=== PATIENT | male | born 1935 | race Caucasian/White ===

== ENCOUNTER → 2021-06-08 10:52 | Outpatient (CLI) | payer MEDICARE, SELFPAY | PROVIDERS: Referring Provider Nurse Practitioner Critical Care Medicine; Visit Provider Nurse Practitioner Critical Care Medicine | DX: R31.9 Hematuria, unspecified (principal) | CPT/HCPCS: 87086 ==

== ENCOUNTER 2021-06-08 11:53 | Emergency (ER) | payer OTHER, SELFPAY ==
[2021-06-08 11:58] VITALS: BP 132/102; PULSE 133; RESP 20; TEMP 36.7; O2SAT 99
--- NOTE | 2021-06-08 12:07 | DI.RAD.S_ITS ---
PROCEDURE: XR CHEST 1V INDICATIONS: chest pain TECHNIQUE: One view of the chest was acquired. COMPARISON: None. FINDINGS: Surgical changes and devices: None. Lungs and pleura: On this semiupright portable chest examination, no large pneumothorax or large pleural effusions are seen. No focal infiltrates are seen. Mediastinum: Mediastinal contours appear normal. Heart size is at the upper limits of normal for portable technique. Bones and chest wall: No suspicious bony lesions. Age-appropriate bony degenerative changes are seen. Overlying soft tissues appear unremarkable. IMPRESSION: Unremarkable portable chest for age. Dictated by: Javan Galvan M.D. on 06/08/2021 at 11:36 Approved by: Javan Galvan M.D. on 06/08/2021 at 11:37
[2021-06-08 12:32] VITALS: PULSE 125; RESP 20; O2SAT 97
[2021-06-08 12:34] LABS: Add Manual Diff / Slide Review NO; Basophils Absolute Auto 100 /uL (0-100); Basophils Percent Auto 0.8 % (0-2); Eosinophils Absolute Auto 300 /uL (0-450); Eosinophils Percent Auto 3.5 % (2-4); Hemoglobin 15.2 g/dL (13.5-17.5); Lymphocytes Absolute Auto 1500 /uL (1100-4500); Lymphocytes Percent Auto 18.1 % (25-40); Mean Corpuscular HGB Conc 33.8 % (30-36); Mean Corpuscular Hemoglobin 32.1 PG (26-34); Monocytes Absolute Auto 900 /uL (0-900); Monocytes Percent Auto 11.1 % (3-14); Neutrophils Absolute Auto 5400 /uL (1500-7000); Neutrophils Percent Auto 66.5 % (50-75); Platelet Count 125 X10^3/uL (150-400); Red Blood Cell Count 4.74 X10^6/uL (4.5-5.9); Red Cell Distribution Width 14.5 % (11.6-14.8)
--- NOTE | 2021-06-08 12:36 | PC.NURSE ---
Patient reports blood in urine since 06/03, denies abdominal pain, denies recent trauma. Switched blood thinners approximately 6 months ago. Reports severe back pain, chronic, not on pain medications. SOB worse with exertion, unclear when started. Recent 4 day travel in car.
[2021-06-08 12:41] LABS: INR 1.4 (0.9-1.3); Prothrombin Time 15.4 SECONDS (10.1-12.7)
[2021-06-08 12:44] LABS: PTT Partial Thromboplastin Tim 39 SECONDS (26.4-36.2)
--- NOTE | 2021-06-08 12:47 | ED.WEAKNESS ---
HPI - Weakness General Chief complaint: Urogenital-Male Stated complaint: [facility] referred; r/o kidney stone, blood in urine Time Seen by Provider: 06/08/21 12:09 Source: patient Mode of arrival: Ambulatory History of Present Illness HPI Narrative: Patient is an 86-year-old male with history of dementia, atrial fibrillation on Eliquis, congestive heart failure, presenting today with hematuria. He was actually diagnosed with a UTI on June 03 and started on ciprofloxacin. Currently with daughter in-law who is the primary historian. She states his urine is very dark and bloody. Patient is overall a very poor historian. There are reports of increasing shortness of breath with exertion as well. He denies any orthopnea he has no chest pain or palpitations although he is in atrial fibrillation on the monitor. He has no nausea or vomiting he denies any abdominal pain. He is currently afebrile. There also reports that patient is more confused than normal. Related Data Home Medications Medication Instructions Recorded Confirmed albuterol 90 mcg/actuation aerosol mcg INHALATION 06/08/21 06/08/21 inhaler apixaban 5 mg tablet (Eliquis) 5 mg PO BID 06/08/21 06/08/21 ciprofloxacin HCl 500 mg tablet 500 mg PO BID 06/08/21 06/08/21 (Cipro) coenzyme Q10 10 mg capsule (Co 10 mg PO ONCE 06/08/21 06/08/21 Q-10) digoxin 125 mcg (0.125 mg) tablet 125 mcg PO DAILY 06/08/21 06/08/21 furosemide 40 mg tablet 40 mg PO DAILY 06/08/21 06/08/21 metoprolol succinate 100 mg 100 mg PO DAILY 06/08/21 06/08/21 tablet,extended release 24 hr tamsulosin 0.4 mg capsule 0.4 mg PO DAILY 06/08/21 06/08/21 Previous Rx's Medication Instructions Recorded hydrocodone 5 mg-acetaminophen 325 1 tab PO Q6H PRN #10 tab 06/08/21 mg tablet Allergies Allergy/AdvReac Type Severity Reaction Status Date / Time No Known Drug Allergies Allergy Unverified 06/08/21 11:01 Review of Systems Review of Systems ROS Unobtainable: All systems reviewed & are unremarkable except as noted in HPI and below Constitutional Constitutional: Reports as per HPI, Denies chills, Denies fatigue, Denies fever(s) and Denies frequent falls ENT Ears, Nose, Mouth, and Throat: Denies dizziness and Denies sore throat Cardiovascular Cardiovascular: Denies chest pain, Denies edema, Reports irregular heart rhythm and Reports dyspnea on exertion Respiratory Respiratory: Denies cough, Reports dyspnea on exertion and Denies wheezing Gastrointestinal Gastrointestinal: Denies abdominal pain, Denies nausea and Denies vomiting Genitourinary Genitourinary: Reports as per HPI Musculoskeletal Musculoskeletal: Reports back pain (Chronic multiple fusions) Neurologic Neurologic: Reports confusion, Denies dizziness, Denies frequent falls and Reports memory loss Psychiatric Psychiatric: Reports confusion and Reports memory loss Endocrine Endocrine: Denies fatigue Allergic/Immunologic Allergic/Immunologic: Denies wheezing Patient History Medical History Atrial fibrillation CHF (congestive heart failure) Dementia Social History Smoking Status: Never smoker Smoking Status: Never smoker alcohol intake frequency: 0-2 drinks per day Substance Use Type: does not use Exam Initial Vital Signs Initial Vital Signs: Vital Signs Temperature 98.1 F 06/08/21 11:58 Pulse Rate 133 H 06/08/21 11:58 Respiratory Rate 20 06/08/21 11:58 Blood Pressure 132/102 H 06/08/21 11:58 Pulse Oximetry 99 06/08/21 11:58 GENERAL: Alert confused and in no acute distress. HEENT: Head atraumatic,EOMI, pupils reactive, face symmetric, moist mucous membranes CARDIOVASCULAR: Regular rate and rhythm without murmurs, rubs or gallops. RESPIRATORY: Breath sounds equal bilaterally, no wheezes rales or rhonchi. ABDOMEN: Soft, nontender. Normoactive bowel sounds all 4 quadrants. No guarding or rebound. : No CVA tenderness EXTREMITIES: Normal range of motion, no clubbing or edema. Neurovascularly intact NEUROLOGICAL: Alert moving all extremities no focal deficits SKIN: Warm, dry, no laceration, no petechiae, no rashes or lesions. Course Orders Ordered: ED Orders 06/08/21 12:07 XR chest 1V Stat EKG-12 Lead Stat 06/08/21 12:22 BNP [NT-proBNP (BNP-Adult 18+)] Stat Complete Blood Count AUTO DIFF Stat Comprehensive Metabolic Panel Stat Lactate (Lactic Acid) Stat Lipase Stat Magnesium Stat Partial Thromboplastin Time Stat Procalcitonin Stat Prothrombin Time INR Stat Troponin & CK Cardiac Panel Stat 06/08/21 13:10 Blood Culture Stat Vital Signs Vital signs: Vital Signs - 8 hr 06/08/21 11:58 06/08/21 12:32 06/08/21 13:00 Temperature 98.1 F Pulse Rate 133 H 125 H 121 H Respiratory Rate 20 20 23 Blood Pressure 132/102 H Pulse Oximetry 99 97 98 06/08/21 13:30 06/08/21 14:00 Temperature Pulse Rate 81 86 Respiratory Rate 21 20 Blood Pressure Pulse Oximetry 98 96 MDM - Weakness Lab Data Result diagrams: 06/08/21 12:22 06/08/21 12:22 Labs: Lab Results 06/08/21 06/08/21 06/08/21 Range/Units 12:22 12:22 12:22 WBC 8.0 (4.5-11.0) X10^3/uL RBC 4.74 (4.5-5.9) X10^6/uL Hgb 15.2 (13.5-17.5) g/dL Hct 45.0 (41-53) % MCV 95.0 (80-100) fL MCH 32.1 (26-34) PG MCHC 33.8 (30-36) % RDW 14.5 (11.6-14.8) % Plt Count 125 L (150-400) X10^3/uL Neut % (Auto) 66.5 (50-75) % Lymph % (Auto) 18.1 L (25-40) % [place]alfa % (Auto) 11.1 (3-14) % Eos % (Auto) 3.5 (2-4) % Baso % (Auto) 0.8 (0-2) % Neut # (Auto) 5400 (1337-6138) /uL Lymph # (Auto) 1500 (5866-0874) /uL [place] # (Auto) 900 (0-900) /uL Eos # (Auto) 300 (0-450) /uL Baso # (Auto) 100 (0-100) /uL PT 15.4 H (10.1-12.7) SECONDS INR 1.4 H (0.9-1.3) APTT 39 H (26.4-36.2) SECONDS Sodium 144 (137-145) mmol/L Potassium 4.0 (3.4-5.1) mmol/L Chloride 108 H (98-107) mmol/L Carbon Dioxide 26 (22-32) mmol/L BUN 10 (9-20) mg/dL Creatinine 0.94 (0.66-1.25) mg/dL Estimated GFR > 60.0 (>60) mL/min BUN/Creatinine Ratio 10.6 (6-22) Glucose 109 (80-110) mg/dL Lactate (0.7-2.1) mmol/L Calcium 9.2 (8.4-10.2) mg/dL Magnesium 2.3 (1.6-2.3) mg/dL Total Bilirubin 1.0 (0.2-1.3) mg/dL AST 32 (17-59) IU/L ALT 17 (<50) IU/L Alkaline Phosphatase 46 (38-126) U/L Total Creatine Kinase 62 (55-170) U/L CK-MB (CK-2) TNP CK-MB (CK-2) Rel Index TNP Troponin I < 0.012 (0.01-0.034) ng/mL NT-Pro-B Natriuret Pep (<450) pg/mL Total Protein 7.5 (6.3-8.2) g/dL Albumin 4.2 (3.5-5.0) g/dL Globulin 3.3 (1.7-4.1) g/dL Albumin/Globulin Ratio 1.3 (1.0-2.8) Lipase 118 (23-300) U/L Procalcitonin (<0.5) ng/mL 06/08/21 06/08/21 Range/Units 12:22 12:22 WBC (4.5-11.0) X10^3/uL RBC (4.5-5.9) X10^6/uL Hgb (13.5-17.5) g/dL Hct (41-53) % MCV (80-100) fL MCH (26-34) PG MCHC (30-36) % RDW (11.6-14.8) % Plt Count (150-400) X10^3/uL Neut % (Auto) (50-75) % Lymph % (Auto) (25-40) % [place] % (Auto) (3-14) % Eos % (Auto) (2-4) % Baso % (Auto) (0-2) % Neut # (Auto) (3828-3977) /uL Lymph # (Auto) (5090-7058) /uL [place] # (Auto) (0-900) /uL Eos # (Auto) (0-450) /uL Baso # (Auto) (0-100) /uL PT (10.1-12.7) SECONDS INR (0.9-1.3) APTT (26.4-36.2) SECONDS Sodium (137-145) mmol/L Potassium (3.4-5.1) mmol/L Chloride (98-107) mmol/L Carbon Dioxide (22-32) mmol/L BUN (9-20) mg/dL Creatinine (0.66-1.25) mg/dL Estimated GFR (>60) mL/min BUN/Creatinine Ratio (6-22) Glucose (80-110) mg/dL Lactate 1.7 (0.7-2.1) mmol/L Calcium (8.4-10.2) mg/dL Magnesium (1.6-2.3) mg/dL Total Bilirubin (0.2-1.3) mg/dL AST (17-59) IU/L ALT (<50) IU/L Alkaline Phosphatase (38-126) U/L Total Creatine Kinase (55-170) U/L CK-MB (CK-2) CK-MB (CK-2) Rel Index Troponin I (0.01-0.034) ng/mL NT-Pro-B Natriuret Pep 1380 H (<450) pg/mL Total Protein (6.3-8.2) g/dL Albumin (3.5-5.0) g/dL Globulin (1.7-4.1) g/dL Albumin/Globulin Ratio (1.0-2.8) Lipase (23-300) U/L Procalcitonin < 0.03 (<0.5) ng/mL Imaging Data Chest x-ray: Radiologist Impression: PROCEDURE:? XR CHEST 1V ? INDICATIONS:? chest pain ? TECHNIQUE:? One view of the chest was acquired.? ? COMPARISON:? None. ? FINDINGS:? ? Surgical changes and devices:? None.? ? Lungs and pleura:? On this semiupright portable chest examination, no large pneumothorax or large pleural effusions are seen.? No focal infiltrates are seen.? ? Mediastinum:? Mediastinal contours appear normal.? Heart size is at the upper limits of normal for portable technique.? ? Bones and chest wall:? No suspicious bony lesions.? Age-appropriate bony degenerative changes are seen.? Overlying soft tissues appear unremarkable.? ? ? IMPRESSION:? Unremarkable portable chest for age. ? ? Dictated by: Javan Galvan M.D. on 06/08/2021 at 11:36? ECG Data Interpretation: Atrial fibrillation rate [address] changes no priors to compare MDM Narrative Medical decision making narrative: It is evident the patient has some dementia. He has urinated multiple times in the ED initially brown slightly pinkish it is not grossly blood. There is no evidence of infection at this time. I recommend that he finish his antibiotic. He has no abdominal pain he has chronic ongoing back pain. He apparently was taking opiates for a number of decades and has been off of them for about 20 years. However his back pain and other pains have gotten so severe that he would like to take medicine again. At this time there is no reason for admission. He has an appointment with new primary care in July. Discussed with daughter in-law if things worsen then she is welcome to return back to the emergency department Discharge Plan Departure Patient Disposition: Home Clinical Impression: Chronic back pain, Hematuria Instructions: DI for Low Back Pain, DI for Hematuria Activity Restrictions/Additional Instructions: *You have been diagnosed with blood in urine and chronic back pain *What to do: At this time it appears that the antibiotics are working. *Continue to take medications as directed Finish antibiotics as prescribed Hydrocodone 1 tablet every 6 hours if needed for severe pain *Follow up with your primary care provider in 2-3 days or call [phone] *Return to ER if you should have increasing pain, gross blood, worsening confusion, or any new, worsening or concerning symptoms CONTROLLED SUBSTANCE DISCHARGE (Narcotoic/benzodiazepine/Flexeril/Phenergan) 1. You have been prescribed narcotic medications, it does have acetaminophen/Tylenol/paracetamol in it, DO NOT TAKE MORE THAN 4,00mg in 24 hours of Tylenol. TRAMADOL DOES NOT CONTAIN TYLENOL 2. Please understand that we cannot provide further refills of narcotics, benzodiazepines or controlled substances through the ED and her pain management will need to be through your provider. 3. While on these medications you cannot drive or operate heavy machinery. 4. You cannot sign legal documents or perform any duties such as this. 5. As long as you're taking opiate pain medications he should also be taking a stool softener such as Colace, Dulcolax, MiraLAX or prune juice, to help avoid constipation. Prescriptions: New hydrocodone-acetaminophen 5-325 mg tablet 1 tab PO Q6H PRN (Reason: pain) Qty: 10 0RF No Action ciprofloxacin HCl [Cipro] 500 mg tablet 500 mg PO BID 0RF digoxin 125 mcg (0.125 mg) tablet 125 mcg PO DAILY 0RF metoprolol succinate 100 mg tablet extended release 24 hr 100 mg PO DAILY 0RF furosemide 40 mg tablet 40 mg PO DAILY 0RF albuterol 90 mcg/actuation aerosol inhalation 0RF tamsulosin 0.4 mg capsule 0.4 mg PO DAILY 0RF Eliquis 5 mg tablet 5 mg PO BID 0RF coenzyme Q10 [Co Q-10] 10 mg capsule 10 mg PO ONCE 0RF Referrals: Bassam Bowden MD [Primary Care Provider] -
[2021-06-08 12:48] LABS: Alanine Aminotransferase 17 IU/L (<50); Albumin 4.2 g/dL (3.5-5.0); Albumin Globulin Ratio 1.3 (1.0-2.8); Alkaline Phosphatase 46 U/L (38-126); Aspartate Aminotransferase 32 IU/L (17-59); BUN Creatinine Ratio 10.6 (6-22); Blood Urea Nitrogen 10 mg/dL (9-20); Calcium 9.2 mg/dL (8.4-10.2); Carbon Dioxide 26 mmol/L (22-32); Chloride 108 mmol/L (98-107); Creatine Kinase 62 U/L (55-170); Estimated Glomerular Filt Rate > 60.0 mL/min (>60); Globulin 3.3 g/dL (1.7-4.1); Glucose 109 mg/dL (80-110); HEMOLYSIS 35 (0-50); Lipase 118 U/L (23-300); Magnesium 2.3 mg/dL (1.6-2.3); Sodium 144 mmol/L (137-145); Total Protein 7.5 g/dL (6.3-8.2)
[2021-06-08 12:59] LABS: Lactate (Lactic Acid) 1.7 mmol/L (0.7-2.1)
[2021-06-08 13:00] VITALS: PULSE 121; RESP 23; O2SAT 98
[2021-06-08 13:00] LABS: Troponin I < 0.012 ng/mL (0.01-0.034)
[2021-06-08 13:09] LABS: NT-proBNP (BNP-Adult 18+) 1380 pg/mL (<450)
[2021-06-08 13:17] LABS: Procalcitonin < 0.03 ng/mL (<0.5)
[2021-06-08 13:30] VITALS: PULSE 81; RESP 21; O2SAT 98
[2021-06-08 14:00] VITALS: PULSE 86; RESP 20; O2SAT 96
== END 2021-06-08 14:19 | disposition home or self-care (01) ==
PROVIDERS: Emergency Provider Emergency Medicine; PCP Internal Medicine
DX: R31.9 Hematuria, unspecified (principal); M54.50 Low back pain, unspecified; R07.9 Chest pain, unspecified; F03.90 Unspecified dementia, unspecified severity, without behavioral disturbance, psychotic disturbance, mood disturbance, and anxiety; G89.29 Other chronic pain; Z79.01 Long term (current) use of anticoagulants
CPT/HCPCS: 36415; 71045; 80053; 82550; 83605; 83690; 83735; 83880; 84145; 84484; 85025; 85610; 85730; 87040; 87086; 93005; 93010; 99284

== ENCOUNTER 2021-06-14 18:08 | Emergency (ER) | payer MEDICARE, SELFPAY ==
[2021-06-14 18:47] VITALS: BP 139/82; PULSE 110; RESP 16; TEMP 36.6; O2SAT 97; BMI 26.6
--- NOTE | 2021-06-14 19:08 | ED_ITS ---
HPI - Male Genitourinary General Chief complaint: Urogenital-Male Stated complaint: Blood in Urine Time Seen by Provider: 06/14/21 19:08 Source: patient Mode of arrival: Ambulatory History of Present Illness HPI Narrative: 86-year-old male nonsmoker with history of AFib on Eliquis presents with his in the chief complaint of painless blood in his urine. He denies any burning, frequency or urgency. He denies any dizziness, weakness or lightheadedness. He denies chest pain or shortness of breath. he was seen and evaluated under relatively similar circumstances about 1 week ago and had a reassuring exam. He had been on antibiotics for supposed urinary tract infection. Related Data Home Medications Medication Instructions Recorded Confirmed albuterol 90 mcg/actuation aerosol mcg INHALATION 06/08/21 06/08/21 inhaler apixaban 5 mg tablet (Eliquis) 5 mg PO BID 06/08/21 06/08/21 ciprofloxacin HCl 500 mg tablet 500 mg PO BID 06/08/21 06/08/21 (Cipro) coenzyme Q10 10 mg capsule (Co 10 mg PO ONCE 06/08/21 06/08/21 Q-10) digoxin 125 mcg (0.125 mg) tablet 125 mcg PO DAILY 06/08/21 06/08/21 furosemide 40 mg tablet 40 mg PO DAILY 06/08/21 06/08/21 metoprolol succinate 100 mg 100 mg PO DAILY 06/08/21 06/08/21 tablet,extended release 24 hr tamsulosin 0.4 mg capsule 0.4 mg PO DAILY 06/08/21 06/08/21 Previous Rx's Medication Instructions Recorded hydrocodone 5 mg-acetaminophen 325 1 tab PO Q6H PRN #10 tab 06/08/21 mg tablet Allergies Allergy/AdvReac Type Severity Reaction Status Date / Time No Known Drug Allergies Allergy Unverified 06/08/21 11:01 Review of Systems Review of Systems Narrative: GENERAL: Denies chills, fatigue, malaise, fever, sweats. HEENT: Denies sinus pain, ear pain, sore throat, difficulty swallowing, dizziness. RESPIRATORY: Denies dyspnea, cough, wheezing, hemoptysis, sputum. CARDIOVASCULAR: Denies chest pain, palpitations, orthopnea, edema, GASTROINTESTINAL: Denies nausea, vomiting, abdominal pain, diarrhea, constipation, melena. : See HPI MUSCULOSKELETAL: denies weakness, joint pain, or bony pain SKIN: Denies rash, skin lesions, or other NEUROLOGIC: Denies weakness, headache, numbness, change in speech, confusion, seizures, incoordination. PSYCHIATRIC: No concerning psychosocial issues. 12 point review of systems is negative except for those stated above Patient History Medical History Atrial fibrillation CHF (congestive heart failure) Dementia Social History Smoking Status: Never smoker Smoking Status: Never smoker alcohol intake frequency: 0-2 drinks per day Substance Use Type: does not use Exam Narrative Exam Narrative: GENERAL: [86] year old patient appears stated age. Well-developed patient, in mild distress. HEAD: Atraumatic. Normocephalic. EYES: Pupils equal round and reactive. Extraocular motions intact. No scleral icterus. No injection or drainage. ENT: Nose without bleeding, purulent drainage. Throat without erythema, tonsillar hypertrophy or exudate. Airway patent. NECK: Trachea midline. Non tender CARDIOVASCULAR: Regular rate and rhythm without murmurs, gallops, or rubs. RESPIRATORY: Clear to auscultation. Breath sounds equal bilaterally. No wheezes, rales, or rhonchi. GASTROINTESTINAL: Abdomen soft, non-tender, nondistended. EXTREMITIES: No edema or joint tenderness. BACK: Nontender without deformity or crepitance. No flank tenderness. NEURO: AOx3. SKIN: No rash or erythema of visible areas Initial Vital Signs Initial Vital Signs: Vital Signs Temperature 97.9 F 06/14/21 18:47 Pulse Rate 110 H 06/14/21 18:47 Respiratory Rate 16 06/14/21 18:47 Blood Pressure 139/82 06/14/21 18:47 Pulse Oximetry 97 06/14/21 18:47 Course Course Course Narrative: At no point has patient's urine been laura blood. It was initially a bit darker but over the course of the visit has cleared significantly and still is blood tinged but translucent. Vital signs and H&H remained stable. X-ray KUB would suggest against the likelihood of kidney stone. Patient given extensive return precautions and questions have been answered to his apparent satisfaction. Orders Ordered: ED Orders 06/14/21 20:10 BMP [Basic Metabolic Panel] Stat CBC Auto Diff [Complete Blood Count AUTO DIFF] Stat 06/14/21 22:02 XR KUB Stat Vital Signs Vital signs: Vital Signs - 8 hr 06/14/21 23:15 Pulse Rate 82 Respiratory Rate 16 Blood Pressure 136/81 Pulse Oximetry 99 MDM - Male Genitourinary Lab Data Result diagrams: 06/14/21 20:10 06/14/21 20:10 Labs: Lab Results 06/14/21 06/14/21 06/14/21 Range/Units 18:24 20:10 20:10 WBC 9.5 (4.5-11.0) X10^3/uL RBC 4.56 (4.5-5.9) X10^6/uL Hgb 14.4 (13.5-17.5) g/dL Hct 43.4 (41-53) % MCV 95.2 (80-100) fL MCH 31.7 (26-34) PG MCHC 33.3 (30-36) % RDW 14.3 (11.6-14.8) % Plt Count 133 L (150-400) X10^3/uL Neut % (Auto) 61.4 (50-75) % Lymph % (Auto) 23.2 L (25-40) % [place] % (Auto) 10.8 (3-14) % Eos % (Auto) 3.6 (2-4) % Baso % (Auto) 1.0 (0-2) % Neut # (Auto) 5800 (9380-3601) /uL Lymph # (Auto) 2200 (0945-4276) /uL [place] # (Auto) 1000 H (0-900) /uL Eos # (Auto) 300 (0-450) /uL Baso # (Auto) 100 (0-100) /uL Sodium 140 (137-145) mmol/L Potassium 4.1 (3.4-5.1) mmol/L Chloride 104 (98-107) mmol/L Carbon Dioxide 29 (22-32) mmol/L BUN 15 (9-20) mg/dL Creatinine 1.03 (0.66-1.25) mg/dL Estimated GFR > 60 (>60) mL/min BUN/Creatinine Ratio 14.6 (6-22) Glucose 99 (80-110) mg/dL Calcium 8.8 (8.4-10.2) mg/dL Urine RBC >100/hpf H (0-5/HPF) Urine WBC 5-10/hpf H (0-5/HPF) Ur Squamous Epith Cells 0-1 /hpf (0-5/HPF) Urine Bacteria Occasional (0-1) (None) Ur Culture Indicated? Specimen cultured Urine Dip Bedside Urine Glucose Negative Bedside Urine Bilirubin - Negative Bedside Urine Ketone - Negative Urine Specific [place] 1.010 Bedside Urine Occult Blood +++ Bedside Urine pH 6.0 Bedside Urine Protein ++ 100 Bedside Urine Urobilinogen - Negative Bedside Urine Nitrite - Negative Bedside Urine Leukocytes + 70 Esterase Discharge Plan Departure Patient Disposition: Home Clinical Impression: Hematuria Instructions: DI for Hematuria Activity Restrictions/Additional Instructions: *You have been diagnosed with [painless hematuria. As we discussed your history and physical exam, vital signs and labs are very reassuring. There is no evidence of life-threatening bleeding, your blood counts are unchanged and vital signs are stable. Also, as we discussed (and I have called your new doctor's partner) we will not change or take you off of your blood thinner right now as it is a larger risk that he would develop a consequence of your atrial fibrillation, this is a conversation you can have with your primary care provider at your upcoming appointment *What to do: *Please continue to take your regular medications as directed. [ ] New medication prescriptions sent to your pharmacy: [ ] [ ] New medication written as a paper prescription [ x] No new medications given *Please follow up with your primary care provider in 2-3 days, call for an appointment. Let them know you were seen in the Emergency Department and that we ask that you be seen in follow up. We will electronically transmit a record of today's note if your PCP is in our system *If you do not have a primary care provider please contact the [facility] Resource line at [phone]. They will ask some questions about your medical history and help get you set up with a doctor in the community. *Return to Emergency Department if you should have any new, worsening or concerning symptoms, such as [fever greater than 101 F, shaking chills, w orsening pain, persistent vomiting or other bothersome symptoms] Prescriptions: No Action ciprofloxacin HCl [Cipro] 500 mg tablet 500 mg PO BID 0RF digoxin 125 mcg (0.125 mg) tablet 125 mcg PO DAILY 0RF metoprolol succinate 100 mg tablet extended release 24 hr 100 mg PO DAILY 0RF furosemide 40 mg tablet 40 mg PO DAILY 0RF albuterol 90 mcg/actuation aerosol inhalation 0RF tamsulosin 0.4 mg capsule 0.4 mg PO DAILY 0RF Eliquis 5 mg tablet 5 mg PO BID 0RF coenzyme Q10 [Co Q-10] 10 mg capsule 10 mg PO ONCE 0RF hydrocodone-acetaminophen 5-325 mg tablet 1 tab PO Q6H PRN (Reason: pain) Qty: 10 0RF Referrals: Bassam Bowden MD [Primary Care Provider] -
[2021-06-14 19:37] LABS: RBC Urine >100/HPF (0-5/HPF); Squamous Epithelial Cell Urine 0-1 /HPF (0-5/HPF)
[2021-06-14 19:38] LABS: Bacteria Urine Occasional (0-1); Culture Indicated Urine Specimen Cultured; WBC Urine 5-10/HPF (0-5/HPF)
[2021-06-14 20:28] LABS: Add Manual Diff / Slide Review NO; Basophils Absolute Auto 100 /uL (0-100); Eosinophils Absolute Auto 300 /uL (0-450); Eosinophils Percent Auto 3.6 % (2-4); Hematocrit 43.4 % (41-53); Hemoglobin 14.4 g/dL (13.5-17.5); Lymphocytes Absolute Auto 2200 /uL (1100-4500); Lymphocytes Percent Auto 23.2 % (25-40); Mean Corpuscular HGB Conc 33.3 % (30-36); Mean Corpuscular Hemoglobin 31.7 PG (26-34); Mean Corpuscular Volume 95.2 fL (80-100); Monocytes Absolute Auto 1000 /uL (0-900); Monocytes Percent Auto 10.8 % (3-14); Neutrophils Absolute Auto 5800 /uL (1500-7000); Neutrophils Percent Auto 61.4 % (50-75); Platelet Count 133 X10^3/uL (150-400); Red Blood Cell Count 4.56 X10^6/uL (4.5-5.9); Red Cell Distribution Width 14.3 % (11.6-14.8); White Blood Cell Count 9.5 X10^3/uL (4.5-11.0)
[2021-06-14 20:32] LABS: BUN Creatinine Ratio 14.6 (6-22); Blood Urea Nitrogen 15 mg/dL (9-20); Calcium 8.8 mg/dL (8.4-10.2); Carbon Dioxide 29 mmol/L (22-32); Chloride 104 mmol/L (98-107); Estimated Glomerular Filt Rate > 60 mL/min (>60); Glucose 99 mg/dL (80-110); HEMOLYSIS 28 (0-50); Potassium 4.1 mmol/L (3.4-5.1); Sodium 140 mmol/L (137-145)
[2021-06-14 21:00] VITALS: BP 148/85; PULSE 75; RESP 16; O2SAT 99
--- NOTE | 2021-06-14 22:02 | DI.RAD.S_ITS ---
PROCEDURE: XR KUB INDICATIONS: hematuria TECHNIQUE: One view of the abdomen acquired. COMPARISON: None. FINDINGS: Surgical changes and devices: None. Bowel: Bowel gas pattern is nonobstructive. Soft tissues: No suspicious abdominal calcifications. Visualized solid organ contours appear normal in size. Bones: No suspicious bony lesions. IMPRESSION: Abdomen without acute radiographic abnormalities. No calcifications noted over the bilateral renal shadows or expected location of the bilateral ureters/bladder to suggest presence of uroliths. Dictated by: Joseph Miller M.D. on 06/14/2021 at 23:30 Approved by: Joseph Miller M.D. on 06/14/2021 at 23:31
[2021-06-14 23:15] VITALS: BP 136/81; PULSE 82; RESP 16; O2SAT 99
== END 2021-06-14 23:45 | disposition home or self-care (01) ==
PROVIDERS: Emergency Provider Emergency Medicine; PCP Internal Medicine
DX: R31.9 Hematuria, unspecified (principal); Z79.01 Long term (current) use of anticoagulants
CPT/HCPCS: 36415; 74018; 80048; 81003; 81015; 85025; 87077; 87086; 87186; 93005; 99284

== ENCOUNTER → 2021-09-13 09:08 | Outpatient (CLI) | payer MEDICARE, SELFPAY ==
[2021-09-13 09:31] LABS: Add Manual Diff / Slide Review NO; Basophils Absolute Auto 100 /uL (0-100); Basophils Percent Auto 0.8 % (0-2); Eosinophils Absolute Auto 200 /uL (0-450); Eosinophils Percent Auto 2.3 % (2-4); Hematocrit 43.1 % (41-53); Hemoglobin 14.6 g/dL (13.5-17.5); Lymphocytes Absolute Auto 1600 /uL (1100-4500); Mean Corpuscular HGB Conc 33.8 % (30-36); Mean Corpuscular Hemoglobin 31.6 PG (26-34); Mean Corpuscular Volume 93.4 fL (80-100); Monocytes Absolute Auto 1000 /uL (0-900); Monocytes Percent Auto 10.9 % (3-14); Neutrophils Absolute Auto 6000 /uL (1500-7000); Platelet Count 132 X10^3/uL (150-400); Red Blood Cell Count 4.61 X10^6/uL (4.5-5.9); Red Cell Distribution Width 15.1 % (11.6-14.8); White Blood Cell Count 8.8 X10^3/uL (4.5-11.0)
[2021-09-13 09:43] LABS: Alanine Aminotransferase 16 IU/L (<50); Albumin 4.2 g/dL (3.5-5.0); Albumin Globulin Ratio 1.4 (1.0-2.8); Alkaline Phosphatase 57 U/L (38-126); Aspartate Aminotransferase 30 IU/L (17-59); BUN Creatinine Ratio 11.9 (6-22); Bilirubin Total 0.8 mg/dL (0.2-1.3); Blood Urea Nitrogen 12 mg/dL (9-20); Carbon Dioxide 31 mmol/L (22-32); Chloride 106 mmol/L (98-107); Cholesterol 163 mg/dL (140-199); Estimated Glomerular Filt Rate > 60 mL/min (>60); Glucose 114 mg/dL (80-110); HDL Cholesterol 37 mg/dL (40-60); HEMOLYSIS < 15 (0-50); LDL Cholesterol Calculated 101 mg/dL (<100); Potassium 3.8 mmol/L (3.4-5.1); Sodium 143 mmol/L (137-145); Total Protein 7.2 g/dL (6.3-8.2); Triglycerides 125 mg/dL (35-150)
[2021-09-13 12:54] LABS: Digoxin 0.7 ng/mL (0.8-2.0)
== END ==
PROVIDERS: PCP Family Medicine; Referring Provider Family Medicine; Visit Provider Family Medicine
DX: I48.91 Unspecified atrial fibrillation (principal); I50.9 Heart failure, unspecified; E78.5 Hyperlipidemia, unspecified; E78.2 Mixed hyperlipidemia
CPT/HCPCS: 36415; 80053; 80061; 80162; 85025

== ENCOUNTER 2021-10-04 09:32 | Emergency (ER) | payer MEDICARE, SELFPAY ==
[2021-10-04] VITALS (9 sets, daily range): BP systolic 141–166; BP diastolic 78–112; PULSE 67–93; RESP 14–21; TEMP 36.5; O2SAT 96–99; BMI 24.3
--- NOTE | 2021-10-04 09:50 | DI.RAD.S_ITS ---
PROCEDURE: XR CHEST 2V INDICATIONS: shortness of breath TECHNIQUE: 2 views of the chest were acquired. COMPARISON: [facility], , XR CHEST 1V, 06/08/2021, 12:13. FINDINGS: Surgical changes and devices: None. Lungs and pleura: Lungs are clear. No pleural effusions or pneumothorax. Mediastinum: Mediastinal contours are normal. Heart size is normal. Bones and chest wall: No suspicious bony abnormalities. Soft tissues appear unremarkable. IMPRESSION: No acute cardiopulmonary disease process. Dictated by: Janae Agarwal MD, PhD on 10/04/2021 at 10:15 Approved by: Janae Agarwal MD, PhD on 10/04/2021 at 10:15
[2021-10-04 10:09] LABS: COVID19 -Nasal RAPID Negative (Negative)
[2021-10-04 10:11] LABS: Add Manual Diff / Slide Review NO; Basophils Absolute Auto 0 /uL (0-100); Basophils Percent Auto 0.5 % (0-2); Eosinophils Absolute Auto 200 /uL (0-450); Hematocrit 45.2 % (41-53); Hemoglobin 15.1 g/dL (13.5-17.5); Lymphocytes Absolute Auto 1200 /uL (1100-4500); Lymphocytes Percent Auto 15.6 % (25-40); Mean Corpuscular HGB Conc 33.4 % (30-36); Mean Corpuscular Hemoglobin 31.3 PG (26-34); Mean Corpuscular Volume 93.7 fL (80-100); Monocytes Absolute Auto 700 /uL (0-900); Monocytes Percent Auto 9.5 % (3-14); Neutrophils Absolute Auto 5600 /uL (1500-7000); Neutrophils Percent Auto 71.4 % (50-75); Platelet Count 130 X10^3/uL (150-400); Red Blood Cell Count 4.83 X10^6/uL (4.5-5.9); Red Cell Distribution Width 14.4 % (11.6-14.8); White Blood Cell Count 7.8 X10^3/uL (4.5-11.0)
[2021-10-04 10:19] LABS: INR 1.5 (0.9-1.3); Prothrombin Time 17.1 SECONDS (10.1-12.7)
[2021-10-04 10:22] LABS: Lactate (Lactic Acid) 1.1 mmol/L (0.7-2.1)
[2021-10-04 10:24] LABS: Alanine Aminotransferase 21 IU/L (<50); Albumin 4.4 g/dL (3.5-5.0); Albumin Globulin Ratio 1.3 (1.0-2.8); Alkaline Phosphatase 62 U/L (38-126); Aspartate Aminotransferase 36 IU/L (17-59); BUN Creatinine Ratio 12.9 (6-22); Bilirubin Total 1.2 mg/dL (0.2-1.3); Blood Urea Nitrogen 13 mg/dL (9-20); Calcium 9.3 mg/dL (8.4-10.2); Carbon Dioxide 32 mmol/L (22-32); Chloride 103 mmol/L (98-107); Creatine Kinase 115 U/L (55-170); Estimated Glomerular Filt Rate > 60 mL/min (>60); Globulin 3.3 g/dL (1.7-4.1); Glucose 111 mg/dL (80-110); HEMOLYSIS < 15 (0-50); Potassium 4.2 mmol/L (3.4-5.1); Sodium 140 mmol/L (137-145); Total Protein 7.7 g/dL (6.3-8.2)
[2021-10-04 10:35] LABS: NT-proBNP (BNP-Adult 18+) 1240 pg/mL (<450); Troponin I < 0.012 ng/mL (0.01-0.034)
[2021-10-04 10:39] LABS: CKMB % Relative Index 3.5 % (1.5-5.0); Creatine Kinase MB 4.07 ng/mL (<2.37)
--- NOTE | 2021-10-04 11:12 | ED_ITS ---
HPI - SOB/Dyspnea General Chief Complaint: Shortness of Breath/Dyspnea Stated Complaint: Trouble breathing Time Seen by Provider: 10/04/21 10:23 Source: patient Mode of arrival: Wheelchair Limitations: no limitations History of Present Illness HPI Narrative: The patient is an 86-year-old male history of dementia, atrial fibrillation on Eliquis when he remembers, congestive heart failure, asthma and chronic back p ain presenting today with variety of complaints. He says he has had worsening back pain since he tried to lift his girlfriend up off the floor about 1 month ago. [id number]-[id number] states that he took at least 4 hydrocodone last night which is more than he usually does. He may be having some shortness of breath as well. He denies any orthopnea or shortness of breath with exertion. He says his right leg swells more than his left leg but they appear about equal now. No fever chills or cough. Biggest complaint seems to be his lower back. Related Data Home Medications Medication Instructions Recorded Confirmed albuterol 90 mcg/actuation aerosol mcg inhalation 06/08/21 09/19/21 inhaler coenzyme Q10 10 mg capsule (Co 10 mg PO ONCE 06/08/21 09/19/21 Q-10) Previous Rx's Medication Instructions Recorded apixaban 5 mg tablet (Eliquis) 5 mg PO BID #180 tabs 07/18/21 digoxin 125 mcg (0.125 mg) tablet 125 mcg PO DAILY #90 tabs 07/18/21 furosemide 40 mg tablet 40 mg PO DAILY #90 tabs 08/27/21 metoprolol succinate 100 mg 100 mg PO DAILY #90 tabs 08/27/21 tablet,extended release 24 hr potassium chloride 8 mEq 8 meq PO DAILY #90 caps 08/27/21 capsule,extended release tamsulosin 0.4 mg capsule 0.4 mg PO DAILY #90 caps 08/27/21 hydrocodone 5 mg-acetaminophen 325 1 tab PO Q6H PRN pain #60 tabs 09/25/21 mg tablet Allergies Allergy/AdvReac Type Severity Reaction Status Date / Time No Known Drug Allergies Allergy Verified 10/04/21 09:46 Review of Systems Review of Systems Narrative: GENERAL: Denies chills, fatigue, malaise, fever, sweats, travel HEENT: Denies sinus pain, ear pain, sore throat, difficulty swallowing, neck pain RESPIRATORY: Denies dyspnea, cough, wheezing, hemoptysis, sputum. CARDIOVASCULAR: Denies chest pain, palpitations, orthopnea, edema GASTROINTESTINAL: Denies nausea, vomiting, abdominal pain, diarrhea, constipation, melena. : Denies dysuria, frequency, incontinence, hematuria, urinary retention, flank pain. MUSCULOSKELETAL: See HPI SKIN: No rash, no erythema, no pruritus NEUROLOGIC: Denies weakness, dizziness, headache, numbness, change in speech, confusion PSYCHIATRIC: No concerning psychosocial issues. 12 point review of systems is negative except for those stated above and HPI Patient History Medical History (Updated 10/04/21 @ 12:24 by Trinh Sidhu DO) Asthma Atrial fibrillation BPH (benign prostatic hyperplasia) Cervical spine disease CHF (congestive heart failure) Dementia Disease of spine Facial basal cell cancer Hearing loss Hepatitis Hyperlipidemia Jaundice Osteoarthritis Shoulder pain Skin lesion Vision disorder Surgical History Anesthesia History of cataract removal with insertion of prosthetic lens History of discectomy (~2001) History of fusion of cervical spine (~2001) History of lumbar laminectomy (~2001) Family History Mother Cancer Brother History of kidney cancer Sister History of heart disease Social History Smoking Status: Never smoker Smoking Status: Never smoker alcohol intake frequency: 0-2 drinks per day Substance Use Type: does not use Exam Initial Vital Signs Initial Vital Signs: Vital Signs Temperature 97.7 F 10/04/21 09:40 Pulse Rate 76 10/04/21 09:40 Respiratory Rate 16 10/04/21 09:40 Blood Pressure 141/93 H 10/04/21 09:40 Pulse Oximetry 99 10/04/21 09:40 Oxygen Delivery Method 10/04/21 09:40 GENERAL: Alert extremely hard of hearing 86-year-old male HEENT: Head atraumatic,EOMI, pupils reactive, face symmetric, moist mucous membr anes CARDIOVASCULAR: Regular rate and rhythm without murmurs, rubs or gallops. RESPIRATORY: Breath sounds equal bilaterally, no wheezes rales or rhonchi. ABDOMEN: Soft, nontender. Normoactive bowel sounds all 4 quadrants. No guarding or rebound. BACK: Under lumbar spine no step-offs but midline vertebral tenderness EXTREMITIES: Normal range of motion, no clubbing or edema. Neurovascularly inta ct NEUROLOGICAL: Alert and oriented x4.Normal gait and speech. Moving all extremities equally SKIN: Warm, dry, no laceration, no petechiae, no rashes or lesions. Course Orders Ordered: ED Orders 10/04/21 09:44 COVID19 -Nasal RAPID/Pre-Proc Stat 10/04/21 09:50 XR chest 2V Stat Measure peak expiratory flow ONCE RT Consult Eval and Treat Now 10/04/21 10:02 Complete Blood Count AUTO DIFF Stat Comprehensive Metabolic Panel Stat Lactate (Lactic Acid) Stat NT-proBNP (BNP-Adult 18+) Stat Prothrombin Time INR Stat Troponin & CK Cardiac Panel Stat 10/04/21 10:15 EKG-12 Lead Stat 10/04/21 11:14 XR lumbar spine 2-3V Stat Discontinued Medications Hydrocodone Bitart/Acetaminophen (Hydrocodone/Acet 5/325 Tablet) 1 tab PO NOW ONE Stop: 10/04/21 12:34 Last Admin: 10/04/21 12:56 Dose: 1 tab Documented By: ADRI Morphine Sulfate (Morphine 2 Mg/Ml Inj) 2 mg IV NOW ONE Stop: 10/04/21 11:15 Last Admin: 10/04/21 12:03 Dose: 2 mg Documented By: SHAHRZAD Ondansetron HCl (Ondansetron 4 Mg/2 Ml Inj) 4 mg IV NOW ONE Stop: 10/04/21 11:15 Last Admin: 10/04/21 12:03 Dose: 4 mg Documented By: SHAHRZAD Vital Signs Vital signs: Vital Signs - 8 hr 10/04/21 10:30 10/04/21 11:00 10/04/21 11:32 Pulse Rate 74 70 67 Respiratory Rate 21 19 15 Pulse Oximetry 96 97 99 10/04/21 12:00 10/04/21 12:30 Pulse Rate 70 69 Respiratory Rate 14 19 Pulse Oximetry 98 MDM - SOB/Dyspnea Lab Data Result diagrams: 10/04/21 10:02 10/04/21 10:02 Labs: Lab Results 10/04/21 10/04/21 10/04/21 Range/Units 09:44 10:02 10:02 WBC 7.8 (4.5-11.0) X10^3/uL RBC 4.83 (4.5-5.9) X10^6/uL Hgb 15.1 (13.5-17.5) g/dL Hct 45.2 (41-53) % MCV 93.7 (80-100) fL MCH 31.3 (26-34) PG MCHC 33.4 (30-36) % RDW 14.4 (11.6-14.8) % Plt Count 130 L (150-400) X10^3/uL Neut % (Auto) 71.4 (50-75) % Lymph % (Auto) 15.6 L (25-40) % Bryan % (Auto) 9.5 (3-14) % Eos % (Auto) 3.0 (2-4) % Baso % (Auto) 0.5 (0-2) % Neut # (Auto) 5600 (0091-5161) /uL Lymph # (Auto) 1200 (2668-6663) /uL Bryan # (Auto) 700 (0-900) /uL Eos # (Auto) 200 (0-450) /uL Baso # (Auto) 0 (0-100) /uL PT 17.1 H (10.1-12.7) SECONDS INR 1.5 H (0.9-1.3) Sodium (137-145) mmol/L Potassium (3.4-5.1) mmol/L Chloride (98-107) mmol/L Carbon Dioxide (22-32) mmol/L BUN (9-20) mg/dL Creatinine (0.66-1.25) mg/dL Estimated GFR (>60) mL/min BUN/Creatinine Ratio (6-22) Glucose (80-110) mg/dL Lactate (0.7-2.1) mmol/L Calcium (8.4-10.2) mg/dL Total Bilirubin (0.2-1.3) mg/dL AST (17-59) IU/L ALT (<50) IU/L Alkaline Phosphatase (38-126) U/L Total Creatine Kinase (55-170) U/L CK-MB (CK-2) (<2.37) ng/mL CK-MB (CK-2) Rel Index (1.5-5.0) % Troponin I (0.01-0.034) ng/mL NT-Pro-B Natriuret Pep (<450) pg/mL Total Protein (6.3-8.2) g/dL Albumin (3.5-5.0) g/dL Globulin (1.7-4.1) g/dL Albumin/Globulin Ratio (1.0-2.8) SARS-CoV-2 (PCR) Negative (Negative) 10/04/21 10/04/21 Range/Units 10:02 10:02 WBC (4.5-11.0) X10^3/uL RBC (4.5-5.9) X10^6/uL Hgb (13.5-17.5) g/dL Hct (41-53) % MCV (80-100) fL MCH (26-34) PG MCHC (30-36) % RDW (11.6-14.8) % Plt Count (150-400) X10^3/uL Neut % (Auto) (50-75) % Lymph % (Auto) (25-40) % Bryan % (Auto) (3-14) % Eos % (Auto) (2-4) % Baso % (Auto) (0-2) % Neut # (Auto) (5103-7580) /uL Lymph # (Auto) (8213-3454) /uL Bryan # (Auto) (0-900) /uL Eos # (Auto) (0-450) /uL Baso # (Auto) (0-100) /uL PT (10.1-12.7) SECONDS INR (0.9-1.3) Sodium 140 (137-145) mmol/L Potassium 4.2 (3.4-5.1) mmol/L Chloride 103 (98-107) mmol/L Carbon Dioxide 32 (22-32) mmol/L BUN 13 (9-20) mg/dL Creatinine 1.01 (0.66-1.25) mg/dL Estimated GFR > 60 (>60) mL/min BUN/Creatinine Ratio 12.9 (6-22) Glucose 111 H (80-110) mg/dL Lactate 1.1 (0.7-2.1) mmol/L Calcium 9.3 (8.4-10.2) mg/dL Total Bilirubin 1.2 (0.2-1.3) mg/dL AST 36 (17-59) IU/L ALT 21 (<50) IU/L Alkaline Phosphatase 62 (38-126) U/L Total Creatine Kinase 115 (55-170) U/L CK-MB (CK-2) 4.07 H (<2.37) ng/mL CK-MB (CK-2) Rel Index 3.5 (1.5-5.0) % Troponin I < 0.012 (0.01-0.034) ng/mL NT-Pro-B Natriuret Pep 1240 H (<450) pg/mL Total Protein 7.7 (6.3-8.2) g/dL Albumin 4.4 (3.5-5.0) g/dL Globulin 3.3 (1.7-4.1) g/dL Albumin/Globulin Ratio 1.3 (1.0-2.8) SARS-CoV-2 (PCR) (Negative) Imaging Data Chest x-ray: Radiologist's Impression: Bassam Cox MR#: [id number] : 1935 Acct:[id number] Age/Sex: 86 / M Date of Service: 10/04/21 Loc: ED Accession Number: [id number] ?? Procedure: XR chest 2V Ordering Provider: Trinh Sidhu D.O. PROCEDURE:? XR CHEST 2V ? INDICATIONS:? shortness of breath ? TECHNIQUE:? 2 views of the chest were acquired.? ? COMPARISON:? [facility], , XR CHEST 1V, 06/08/2021, 12:13. ? FINDINGS:? ? Surgical changes and devices:? None.? ? Lungs and pleura:? Lungs are clear.? No pleural effusions or pneumothorax.? ? Mediastinum:? Mediastinal contours are normal.? Heart size is normal.? ? Bones and chest wall:? No suspicious bony abnormalities.? Soft tissues appear unremarkable.? ? IMPRESSION:? No acute cardiopulmonary disease process. ? ? Dictated by: Janae Agarwal MD, PhD on 10/04/2021 at 10:15 ? ? XR Lumbar: Radiologist's Impression: XRay Report Signed Patient: Bassam Cox MR#: [id number] : 1935 Acct:[id number] Age/Sex: 86 / M Date of Service: 10/04/21 Loc: ED Accession Number: [id number] ?? Procedure: XR lumbar spine 2-3V Ordering Provider: Trinh Sidhu D.O. PROCEDURE:? XR LUMBAR SPINE 2-3V ? INDICATIONS:? pain ? TECHNIQUE:? 3 views of the lumbar spine were acquired.? ? COMPARISON:? None. ? FINDINGS:? ? Bones:? 5 [id number] vertebrae are present.? There is approximately 3 millimeters of L4-L5 anterolisthesis secondary to facet hypertrophy.? No vertebral body compression fractures.? No suspicious bony lesions.? Moderate degenerative disc disease noted throughout the lumbar spine.? Moderate facet hypertrophy noted throughout the lumbar spine.? ? Soft tissues:? Overlying bowel gas pattern is normal.? No suspicious soft tissue calcifications.? ? ? IMPRESSION:? ? 1. Multilevel degenerative disc disease. ? 2. Multilevel facet arthropathy. ? 3. No fracture. No acute osseous lesion. If symptoms and/or clinical suspicion for pathology persists, evaluation with MRI should be considered for further assessment. ? ? ? Dictated by: Janae Agarwal MD, PhD on 10/04/2021 at 11:31 ? ? ECG Data Interpretation: Atrial fibrillation rate 63 no acute changes similar to previous EKG in May 2021 MDM Narrative Medical decision making narrative: Very difficult to get information from patient at he seemed so he is here mostly for his worsening chronic back pain. X-ray today is negative for compression fracture a workup of shortness of breath is also negative. [id number] ates she is not really compliant, he does not use has albuterol inhaler questionable an IV take his Eliquis. Sounds as though he was taking hydrocodone for his back but now may be needing more, he did just receive 60 tablets on September 25 from his PCP. Needed no focal deficits do not suspect dissection and I do not suspect abscess he has had no injections. BNP is elevated but actually lower than what it was previously. It seems to be stable. He has no conversational dyspnea or obvious shortness of breath. Discharge Plan Departure Patient Disposition: Home Clinical Impression: Acute exacerbation of chronic low back pain Activity Restrictions/Additional Instructions: *You have been diagnosed with Acute on chronic back pain *What to do: At this time he may need physical therapy. Recommend some light walking and light stretching along with heating pad He may need an outpatient MRI *Continue to take medications as directed Squires 1 tablet every 6 hours as prescribed from PCP *Follow up with your primary care provider in 2-3 days or call [phone] *Return to ER if you should have increasing leg weakness, increasing falling, inability to urinate or any new, worsening or concerning symptoms Prescriptions: No Action albuterol 90 mcg/actuation aerosol inhalation coenzyme Q10 [Co Q-10] 10 mg capsule 10 mg PO ONCE metoprolol succinate 100 mg tablet extended release 24 hr 100 mg PO DAILY Qty: 90 1RF tamsulosin 0.4 mg capsule 0.4 mg PO DAILY Qty: 90 1RF furosemide 40 mg tablet 40 mg PO DAILY Qty: 90 1RF potassium chloride 8 mEq capsule, extended release 8 meq PO DAILY Qty: 90 1RF hydrocodone-acetaminophen 5-325 mg tablet 1 tab PO Q6H PRN (Reason: pain) Qty: 60 0RF Eliquis 5 mg tablet 5 mg PO BID Qty: 180 3RF digoxin 125 mcg (0.125 mg) tablet 125 mcg PO DAILY Qty: 90 3RF Referrals: Nathaniel Sarmiento DO [Primary Care Provider] - Visit Report Forms: Patient Portal/API
--- NOTE | 2021-10-04 11:14 | DI.RAD.S_ITS ---
PROCEDURE: XR LUMBAR SPINE 2-3V INDICATIONS: pain TECHNIQUE: 3 views of the lumbar spine were acquired. COMPARISON: None. FINDINGS: Bones: 5 [id number]-mww-rymcytv vertebrae are present. There is approximately 3 millimeters of L4-L5 anterolisthesis secondary to facet hypertrophy. No vertebral body compression fractures. No suspicious bony lesions. Moderate degenerative disc disease noted throughout the lumbar spine. Moderate facet hypertrophy noted throughout the lumbar spine. Soft tissues: Overlying bowel gas pattern is normal. No suspicious soft tissue calcifications. IMPRESSION: 1. Multilevel degenerative disc disease. 2. Multilevel facet arthropathy. 3. No fracture. No acute osseous lesion. If symptoms and/or clinical suspicion for pathology persists, evaluation with MRI should be considered for further assessment. Dictated by: Janae Agarwal MD, PhD on 10/04/2021 at 11:31 Approved by: Janae Agarawl MD, PhD on 10/04/2021 at 11:32
[2021-10-04] MEDS: MORPHINE 2 MG/ML INJ IV (12:03)
[2021-10-04] MEDS: ONDANSETRON 4 MG/2 ML INJ IV (12:03)
[2021-10-04] MEDS: HYDROCODONE/ACET 5/325 TABLET 1 TAB PO (12:56)
== END 2021-10-04 12:59 | disposition home or self-care (01) ==
PROVIDERS: Emergency Provider Emergency Medicine; PCP Family Medicine
DX: M54.50 Low back pain, unspecified (principal); R79.89 Other specified abnormal findings of blood chemistry; Z79.01 Long term (current) use of anticoagulants; Z20.822 Contact with and (suspected) exposure to COVID-19
CPT/HCPCS: 36415; 71046; 72100; 80053; 82550; 82553; 83605; 83880; 84484; 85025; 85610; 87635; 93005; 96374; 96375; 99284; C9803; J2270; J2405

== ENCOUNTER → 2021-11-19 10:34 | Outpatient (CLI) | payer MEDICARE, SELFPAY ==
--- NOTE | 2021-11-19 10:35 | DI.CT.S_ITS ---
PROCEDURE: CT LUMBAR SPINE WO CON INDICATIONS: progressive low back pain w/ radiculopathy and spondylolysis TECHNIQUE: Noncontrast 3 mm thick sections acquired from the T12 level to the sacrum. Sagittal and coronal reformats were constructed. For radiation dose reduction, the following was used: automated exposure control. COMPARISON: None. FINDINGS: Image quality: Excellent. Bones: There is normal bony alignment. No acute vertebral body compression fractures. No suspicious lytic or blastic bony lesions. No pars defects. T12-L1: Disc space narrowing with circumferential disc bulge results in mild central stenosis. No foraminal stenosis L1-L2: Disc space narrowing with circumferential disc bulge and hypertrophic facet joints results in mild central doubt foraminal stenosis L2-L3: Disc space narrowing with posterior disc bulge, hypertrophic facet joints and ligamentum flavum laxity results in moderate central stenosis. Moderate bilateral foraminal stenosis greater on the right. L3-L4: Disc space narrowing with vacuum disc phenomena. Ligamentum flavum laxity and hypertrophic facet joints results in severe central stenosis. Severe bilateral foraminal stenosis. L4-L5: Disc space narrowing with vacuum disc phenomena and circumferential disc bulge with hypertrophic facet joints and ligamentum flavum laxity results in severe central stenosis. Severe bilateral foraminal stenosis is greater on the left. L5-S1: A disc space narrowing and circumferential disc bulge present without central stenosis. Moderate bilateral foraminal stenosis present. Soft tissues: No retroperitoneal masses or hematomas. Visualized aorta is normal in caliber. IMPRESSION: Multilevel degenerative disc disease and arthropathy results in varying degrees of central and foraminal stenosis including severe central stenosis L3-4 and L4-5 Approved by: Garry Luevano M.D. on 11/19/2021 at 14:32
== END ==
PROVIDERS: PCP Family Medicine; Referring Provider Family Medicine; Visit Provider Family Medicine
DX: M51.16 Intervertebral disc disorders with radiculopathy, lumbar region; M48.061 Spinal stenosis, lumbar region without neurogenic claudication; M47.26 Other spondylosis with radiculopathy, lumbar region; M48.07 Spinal stenosis, lumbosacral region; M54.50 Low back pain, unspecified; G89.29 Other chronic pain
CPT/HCPCS: 72131

== ENCOUNTER 2021-12-29 08:14 | Emergency (ER) | payer MEDICARE, SELFPAY ==
[2021-12-29] VITALS (12 sets, daily range): BP systolic 142–181; BP diastolic 73–86; PULSE 68–115; RESP 14–20; TEMP 37; O2SAT 96–98; BMI 24.4
--- NOTE | 2021-12-29 08:21 | ED_ITS ---
HPI - General Adult General Chief complaint: Hypertension Stated complaint: facility concern high bp Time Seen by Provider: 12/29/21 08:15 History of Present Illness HPI narrative: 86-year-old male nonsmoker with history of chronic AFib on Eliquis and digoxin, cervical spine disease, BPH, lumbar radiculopathy with known left lower extremity radicular symptoms presents by EMS for evaluation of elevated blood pressure. Patient lives at an adult home and went to bed in his normal state of health and woke up with a headache and some vague chest pressure. He has had blood pressures in the 180s over 120s. He states he took all of his medications this morning. EMS found his blood pressure to be similar, patient asymptomatic from the time of their arrival through transport and continues to be asymptomatic on his arrival here. He is very hard of hearing. Daughter arrived soon after patient and states that she typically sats out his medications for a week at a time and states it for least the past few days he has not been great about taking at least his Eliquis and digoxin but is unclear on the others. Patient states he has had all of his medications this morning Related Data Home Medications Medication Instructions Recorded Confirmed albuterol 90 mcg/actuation aerosol mcg inhalation 06/08/21 12/26/21 inhaler coenzyme Q10 10 mg capsule (Co 10 mg PO ONCE 06/08/21 12/26/21 Q-10) Previous Rx's Medication Instructions Recorded apixaban 5 mg tablet (Eliquis) 5 mg PO BID #180 tabs 07/18/21 digoxin 125 mcg (0.125 mg) tablet 125 mcg PO DAILY #90 tabs 07/18/21 furosemide 40 mg tablet 40 mg PO DAILY #90 tabs 08/27/21 metoprolol succinate 100 mg 100 mg PO DAILY #90 tabs 08/27/21 tablet,extended release 24 hr potassium chloride 8 mEq 8 meq PO DAILY #90 caps 08/27/21 capsule,extended release tamsulosin 0.4 mg capsule 0.4 mg PO DAILY #90 caps 08/27/21 gabapentin 100 mg capsule 100 mg PO BID #60 caps 12/04/21 hydrocodone 5 mg-acetaminophen 325 1 tab PO Q6H PRN pain #120 tabs 12/19/21 mg tablet Allergies Allergy/AdvReac Type Severity Reaction Status Date / Time No Known Drug Allergies Allergy Verified 12/26/21 14:39 Review of Systems Review of Systems Narrative: GENERAL: See HPI HEENT: Denies sinus pain, ear pain, sore throat, difficulty swallowing, dizziness. RESPIRATORY: Denies dyspnea, cough, wheezing, hemoptysis, sputum. CARDIOVASCULAR: See HPI GASTROINTESTINAL: Denies nausea, vomiting, abdominal pain, diarrhea, constipation, melena. : Denies dysuria, frequency, incontinence, hematuria, urinary retention. MUSCULOSKELETAL: denies weakness, joint pain, or bony pain SKIN: Denies rash, skin lesions, or other NEUROLOGIC: See HPI PSYCHIATRIC: No concerning psychosocial issues. 12 point review of systems is negative except for those stated above Patient History Medical History Asthma Atrial fibrillation BPH (benign prostatic hyperplasia) Cervical spine disease CHF (congestive heart failure) Dementia Disease of spine Facial basal cell cancer Hearing loss Hepatitis Hyperlipidemia Jaundice Lumbar stenosis with neurogenic claudication Osteoarthritis Shoulder pain Skin lesion Vision disorder Surgical History Anesthesia History of cataract removal with insertion of prosthetic lens History of discectomy (~2001) History of fusion of cervical spine (~2001) History of lumbar laminectomy (~2001) Family History Mother Cancer Brother History of kidney cancer Sister History of heart disease Social History Smoking Status: Never smoker Smoking Status: Never smoker alcohol intake frequency: 0-2 drinks per day Substance Use Type: does not use Exam Narrative Exam Narrative: GENERAL: [86] year old patient appears stated age. Well-developed patient, in mild distress. GCS 15. Very hard of hearing HEAD: Atraumatic. Normocephalic. EYES: Pupils equal round and reactive. Extraocular motions intact. No scleral icterus. No injection or drainage. ENT: Nose without bleeding, purulent drainage. Throat without erythema, tonsillar hypertrophy or exudate. Airway patent. NECK: Trachea midline. Non tender CARDIOVASCULAR: Irregular rate and rhythm without murmurs, gallops, or rubs. RESPIRATORY: Clear to auscultation. Breath sounds equal bilaterally. No wheezes, rales, or rhonchi. GASTROINTESTINAL: Abdomen soft, non-tender, nondistended. EXTREMITIES: No edema or joint tenderness. BACK: Nontender without deformity or crepitance. No flank tenderness. NEURO: AOx3. CNII-XII grossly intact SKIN: No rash or erythema of visible areas Initial Vital Signs Initial Vital Signs: Vital Signs Pulse Rate 73 12/29/21 08:37 Pulse Oximetry 97 12/29/21 08:37 Scores NIH Stroke Scale Level of Conciousness: Alert, keenly responsive Ask month/age: Answers both questions correctly. Open/close eyes, close hand: Performs both tasks correctly Best gaze horizontal: Normal Visual christian: No visual loss Facial palsy: Normal symetrical movement Left arm drift: No drift for full 10 sec Right arm drift: No drift for full 10 sec Left leg drift: Drifts down, not to bed Right leg drift: No drift for full 5 sec Limb ataxia: Absent Sensory on face/arms/legs: Mild to moderate sensory loss, can tell touch (left leg only) Best language: No aphasia, normal Dysarthria: Mild to mod,some slurring (baseline per family) Extinction or inattention: No abnormality Total NIH Stroke scale score: 3 Course Orders Ordered: ED Orders 12/29/21 08:23 CT head/brain wo con Stat Chest [XR chest 1V] Stat 12/29/21 08:26 EKG-12 Lead Stat 12/29/21 08:48 COVID19 -Nasal RAPID/Pre-Proc Stat Complete Blood Count AUTO DIFF Stat Urinalysis and Microscopic Stat 12/29/21 09:40 Comprehensive Metabolic Panel Stat Magnesium Stat NT-proBNP (BNP-Adult 18+) Stat Troponin & CK Cardiac Panel Stat 12/29/21 11:54 Troponin & CK Cardiac Panel Stat Discontinued Medications Sodium Chloride (Normal Saline 0.9%) 500 mls @ 1,000 mls/hr IV BOLUS ONE Stop: 12/29/21 08:52 Last Infusion: 12/29/21 09:20 Dose: 0 mls/hr Documented By: Admin: 12/29/21 08:36 Dose: 1,000 mls/hr Documented By: PANCHO Vital Signs Vital signs: Vital Signs - 8 hr 12/29/21 09:04 12/29/21 08:37 12/29/21 09:15 Temperature 98.6 F Pulse Rate 76 73 115 H Respiratory Rate 18 Blood Pressure 181/86 H Pulse Oximetry 98 97 Oxygen Delivery Method Room Air 12/29/21 09:30 12/29/21 09:36 12/29/21 09:36 Temperature Pulse Rate 76 74 Respiratory Rate Blood Pressure 177/83 H Pulse Oximetry 98 97 Oxygen Delivery Method 12/29/21 10:00 12/29/21 10:01 12/29/21 10:01 Temperature Pulse Rate 69 72 Respiratory Rate Blood Pressure 152/79 H Pulse Oximetry 96 97 Oxygen Delivery Method 12/29/21 10:30 12/29/21 10:30 12/29/21 11:00 Temperature Pulse Rate 73 Respiratory Rate Blood Pressure 142/81 H 158/78 H Pulse Oximetry 96 Oxygen Delivery Method 12/29/21 11:00 12/29/21 11:30 12/29/21 11:31 Temperature Pulse Rate 70 68 Respiratory Rate 16 16 Blood Pressure 150/73 H Pulse Oximetry 97 98 Oxygen Delivery Method 12/29/21 11:31 12/29/21 12:00 12/29/21 12:00 Temperature Pulse Rate 69 69 Respiratory Rate 14 20 Blood Pressure 176/83 H Pulse Oximetry 97 97 Oxygen Delivery Method Medical Decision Making Lab Data Result diagrams: 12/29/21 08:48 12/29/21 09:40 Labs: Lab Results 12/29/21 12/29/21 12/29/21 Range/Units 08:48 08:48 08:48 WBC 7.9 (4.5-11.0) X10^3/uL RBC 4.65 (4.5-5.9) X10^6/uL Hgb 14.6 (13.5-17.5) g/dL Hct 43.4 (41-53) % MCV 93.3 (80-100) fL MCH 31.3 (26-34) PG MCHC 33.5 (30-36) % RDW 14.9 H (11.6-14.8) % Plt Count 114 L (150-400) X10^3/uL Neut % (Auto) 67.9 (50-75) % Lymph % (Auto) 15.2 L (25-40) % [place] % (Auto) 12.2 (3-14) % Eos % (Auto) 4.2 H (2-4) % Baso % (Auto) 0.5 (0-2) % Neut # (Auto) 5300 (6012-0784) /uL Lymph # (Auto) 1200 (4469-3354) /uL [place] # (Auto) 1000 H (0-900) /uL Eos # (Auto) 300 (0-450) /uL Baso # (Auto) 0 (0-100) /uL Sodium (137-145) mmol/L Potassium (3.4-5.1) mmol/L Chloride (98-107) mmol/L Carbon Dioxide (22-32) mmol/L BUN (9-20) mg/dL Creatinine (0.66-1.25) mg/dL Estimated GFR (>60) mL/min BUN/Creatinine Ratio (6-22) Glucose (80-110) mg/dL Calcium (8.4-10.2) mg/dL Magnesium (1.6-2.3) mg/dL Total Bilirubin (0.2-1.3) mg/dL AST (17-59) IU/L ALT (<50) IU/L Alkaline Phosphatase (38-126) U/L Total Creatine Kinase (55-170) U/L CK-MB (CK-2) CK-MB (CK-2) Rel Index Troponin I (0.01-0.034) ng/mL NT-Pro-B Natriuret Pep (<450) pg/mL Total Protein (6.3-8.2) g/dL Albumin (3.5-5.0) g/dL Globulin (1.7-4.1) g/dL Albumin/Globulin Ratio (1.0-2.8) Urine Color Yellow Urine Appearance Clear Urine pH 7.0 (4.5-8.0) Ur Specific [place] 1.015 (1.000-1.035) Urine Protein Negative (Negative) Urine Glucose (UA) Trace H (Negative) g/dL Urine Ketones Negative (NEGATIVE) Urine Occult Blood Trace-lysed (Negative) Urine Nitrate Negative (Negative) Urine Bilirubin Negative (NEGATIVE) Urine Urobilinogen 0.2 (0.2) E.U./dL Ur Leukocyte Esterase Negative (NEGATIVE) Urine RBC 0-1/hpf D (0-5/HPF) Urine WBC 0-1/hpf (0-5/HPF) Ur Squamous Epith Cells 0-1 /hpf (0-5/HPF) Urine Bacteria Occasional (0-1) (None) Ur Culture Indicated? Cult not indicated SARS-CoV-2 (PCR) Negative (Negative) 12/29/21 12/29/21 Range/Units 09:40 11:54 WBC (4.5-11.0) X10^3/uL RBC (4.5-5.9) X10^6/uL Hgb (13.5-17.5) g/dL Hct (41-53) % MCV (80-100) fL MCH (26-34) PG MCHC (30-36) % RDW (11.6-14.8) % Plt Count (150-400) X10^3/uL Neut % (Auto) (50-75) % Lymph % (Auto) (25-40) % [place] % (Auto) (3-14) % Eos % (Auto) (2-4) % Baso % (Auto) (0-2) % Neut # (Auto) (9651-3838) /uL Lymph # (Auto) (2126-6015) /uL [place] # (Auto) (0-900) /uL Eos # (Auto) (0-450) /uL Baso # (Auto) (0-100) /uL Sodium 142 (137-145) mmol/L Potassium 3.9 (3.4-5.1) mmol/L Chloride 105 (98-107) mmol/L Carbon Dioxide 29 (22-32) mmol/L BUN 12 (9-20) mg/dL Creatinine 0.85 (0.66-1.25) mg/dL Estimated GFR > 60 (>60) mL/min BUN/Creatinine Ratio 14.1 (6-22) Glucose 107 (80-110) mg/dL Calcium 9.2 (8.4-10.2) mg/dL Magnesium 2.2 (1.6-2.3) mg/dL Total Bilirubin 0.8 (0.2-1.3) mg/dL AST 30 (17-59) IU/L ALT 23 (<50) IU/L Alkaline Phosphatase 73 (38-126) U/L Total Creatine Kinase 77 64 (55-170) U/L CK-MB (CK-2) TNP TNP CK-MB (CK-2) Rel Index TNP TNP Troponin I < 0.012 < 0.012 (0.01-0.034) ng/mL NT-Pro-B Natriuret Pep 1100 H (<450) pg/mL Total Protein 7.8 (6.3-8.2) g/dL Albumin 4.2 (3.5-5.0) g/dL Globulin 3.6 (1.7-4.1) g/dL Albumin/Globulin Ratio 1.2 (1.0-2.8) Urine Color Urine Appearance Urine pH (4.5-8.0) Ur Specific [place] (1.000-1.035) Urine Protein (Negative) Urine Glucose (UA) (Negative) g/dL Urine Ketones (NEGATIVE) Urine Occult Blood (Negative) Urine Nitrate (Negative) Urine Bilirubin (NEGATIVE) Urine Urobilinogen (0.2) E.U./dL Ur Leukocyte Esterase (NEGATIVE) Urine RBC (0-5/HPF) Urine WBC (0-5/HPF) Ur Squamous Epith Cells (0-5/HPF) Urine Bacteria (None) Ur Culture Indicated? SARS-CoV-2 (PCR) (Negative) Imaging Data CT scan - head: Radiologist's Impression: Bassam Cox?(Niranjan)??86??M??1935 ? Allergy/Adv: No Known Drug Allergies (More??) Close Head CT (Signed) Call,Fede - 12/29/21 Chest X-Ray (Signed) Call,Fede - 12/29/[address] (Signed) Garry Luevano - 11/19/21 Lumbar Spine X-Ray (Signed) Janae Agarwal - 10/04/21 Chest X-Ray (Signed) Janae Agarwal - 10/04/21 KUB X-Ray (Signed) Joseph Miller - 06/14/21 EKG Rpt. 06/14/21 Chest X-Ray (Signed) Javan Galvan - 06/08/21 Launch?[address] [address] [address] Scan Report Signed Patient: Bassam Cox MR#: [id number] : 1935 Acct:[id number] Age/Sex: 86 / M Date of Service: 12/29/21 Loc: ED Accession Number: [id number] ?? Procedure: CT head/brain wo con Ordering Provider: Romain Novak D.O. PROCEDURE:? CT HEAD/BRAIN WO CON ? INDICATIONS:? headache, HTN emergency, on thinners ? TECHNIQUE:? Noncontrast 4.5 mm thick angled axial sections acquired from the foramen magnum to the vertex, with coronal and sagittal reformats.? For radiation dose reduction, the following was used:? automated exposure control, adjustment of mA and/or kV according to patient size.? ? COMPARISON:? None. ? FINDINGS:? Image quality:? Excellent.? ? CSF spaces:? Basal cisterns are patent.? No extra-axial fluid collections.? Ventricles are normal in size and shape.? ? Brain:? No midline shift.? No intracranial masses or hemorrhage.? Right basal ganglia calcification. No area of hypodensity in a large vascular distribution to suggest acute infarction. Periventricular hypodensity consistent with chronic microvascular ischemic change. Age-related parenchymal loss. ? Skull and face:? Calvarium and visualized facial bones are intact, without suspicious lesions.? ? Sinuses:? Visualized sinuses and mastoids are clear.? ? IMPRESSION:? No acute intracranial abnormality. Chronic microvascular ischemic disease. ? ? ? Dictated by: Fede Dorsey M.D. on 12/29/2021 at 8:15 ? ? Approved by: Fede Dorsey M.D. on 12/29/2021 at 8:17 ? Chest x-ray: Radiologist's Impression: [place] [address] XRay Report Signed Patient: Bassam Cox MR#: [id number] : 1935 Acct:[id number] Age/Sex: 86 / M Date of Service: 12/29/21 Loc: ED Accession Number: [id number] ?? Procedure: XR chest 1V Ordering Provider: Romain Novak D.O. PROCEDURE:? XR CHEST 1V ? INDICATIONS:? chest pain, HTN emergency ? TECHNIQUE:? One view of the chest was acquired.? ? COMPARISON:? [facility], CR, XR CHEST 2V, 10/04/2021, 10:09.? [facility], CR, XR CHEST 1V, 06/08/2021, 12:13. ? FINDINGS:? ? Surgical changes and devices:? None.? ? Lungs and pleura:? Lungs are clear.? No pleural effusions or pneumothorax.? ? Mediastinum:? Mediastinal contours appear unchanged.? Heart size is within normal limits. ? ? Bones and chest wall:? No suspicious bony lesions.? Overlying soft tissues appear unremarkable.? ? IMPRESSION:? No acute cardiopulmonary abnormality. ? ? ? Dictated by: Fede Dorsey M.D. on 12/29/2021 at 8:23 ? ? Approved by: Fede Dorsey M.D. on 12/29/2021 at 8:24 ? MDM Narrative Medical decision making narrative: Patient has very reassuring history and physical exam initially a small amount of chest pain with elevated blood pressure that resolved along with blood pressure. Multiple EKGs are nonischemic, troponins are undetectable. Head CT obtained and no evidence of bleeding or infarct. Labs are very reassuring. No evidence of any diagnosis requiring specific or immediate intervention. Questions answered to their apparent satisfaction Discharge Plan Departure Patient Disposition: Home Clinical Impression: Hypertension Instructions: DI for High Blood Pressure Activity Restrictions/Additional Instructions: *You have been diagnosed with [elevated blood pressure, resolved. Your physical exam, labs, imaging and EKGs are very reassuring and there is no significant fi nding or diagnosis that would require specific or immediate intervention] *What to do: *Please continue to take your regular medications as directed. [ ] New medication prescriptions sent to your pharmacy: [ ] [ ] New medication written as a paper prescription [x ] No new medications given *Please follow up with your primary care provider in 2-3 days, call for an appointment. Let them know you were seen in the Emergency Department and that we ask that you be seen in follow up. We will electronically transmit a record of today's note if your PCP is in our system *Return to Emergency Department if you should have any new, worsening or concerning symptoms Prescriptions: No Action albuterol 90 mcg/actuation aerosol inhalation coenzyme Q10 [Co Q-10] 10 mg capsule 10 mg PO ONCE metoprolol succinate 100 mg tablet extended release 24 hr 100 mg PO DAILY Qty: 90 1RF tamsulosin 0.4 mg capsule 0.4 mg PO DAILY Qty: 90 1RF furosemide 40 mg tablet 40 mg PO DAILY Qty: 90 1RF potassium chloride 8 mEq capsule, extended release 8 meq PO DAILY Qty: 90 1RF gabapentin 100 mg capsule 100 mg PO BID Qty: 60 1RF hydrocodone-acetaminophen 5-325 mg tablet 1 tab PO Q6H PRN (Reason: pain) Qty: 120 0RF Eliquis 5 mg tablet 5 mg PO BID Qty: 180 3RF digoxin 125 mcg (0.125 mg) tablet 125 mcg PO DAILY Qty: 90 3RF Referrals: Nathaniel Sarmiento DO [Primary Care Provider] - Visit Report Forms: Patient Portal/API
--- NOTE | 2021-12-29 08:23 | DI.RAD.S_ITS ---
PROCEDURE: XR CHEST 1V INDICATIONS: chest pain, HTN emergency TECHNIQUE: One view of the chest was acquired. COMPARISON: [facility], CR, XR CHEST 2V, 10/04/2021, 10:09. [facility], CR, XR CHEST 1V, 06/08/2021, 12:13. FINDINGS: Surgical changes and devices: None. Lungs and pleura: Lungs are clear. No pleural effusions or pneumothorax. Mediastinum: Mediastinal contours appear unchanged. Heart size is within normal limits. Bones and chest wall: No suspicious bony lesions. Overlying soft tissues appear unremarkable. IMPRESSION: No acute cardiopulmonary abnormality. Dictated by: Fede Dorsey M.D. on 12/29/2021 at 8:23 Approved by: Fede Dorsey M.D. on 12/29/2021 at 8:24
--- NOTE | 2021-12-29 08:23 | DI.CT.S_ITS ---
PROCEDURE: CT HEAD/BRAIN WO CON INDICATIONS: headache, HTN emergency, on thinners TECHNIQUE: Noncontrast 4.5 mm thick angled axial sections acquired from the foramen magnum to the vertex, with coronal and sagittal reformats. For radiation dose reduction, the following was used: automated exposure control, adjustment of mA and/or kV according to patient size. COMPARISON: None. FINDINGS: Image quality: Excellent. CSF spaces: Basal cisterns are patent. No extra-axial fluid collections. Ventricles are normal in size and shape. Brain: No midline shift. No intracranial masses or hemorrhage. Right basal ganglia calcification. No area of hypodensity in a large vascular distribution to suggest acute infarction. Periventricular hypodensity consistent with chronic microvascular ischemic change. Age-related parenchymal loss. Skull and face: Calvarium and visualized facial bones are intact, without suspicious lesions. Sinuses: Visualized sinuses and mastoids are clear. IMPRESSION: No acute intracranial abnormality. Chronic microvascular ischemic disease. Dictated by: Fede Dorsey M.D. on 12/29/2021 at 8:15 Approved by: Fede Dorsey M.D. on 12/29/2021 at 8:17
[2021-12-29] MEDS: SODIUM CHLORIDE 0.9% 500 ML 1000 ML IV (08:36)
[2021-12-29 08:59] LABS: Add Manual Diff / Slide Review NO; Basophils Absolute Auto 0 /uL (0-100); Basophils Percent Auto 0.5 % (0-2); Eosinophils Absolute Auto 300 /uL (0-450); Eosinophils Percent Auto 4.2 % (2-4); Hematocrit 43.4 % (41-53); Hemoglobin 14.6 g/dL (13.5-17.5); Lymphocytes Absolute Auto 1200 /uL (1100-4500); Lymphocytes Percent Auto 15.2 % (25-40); Mean Corpuscular HGB Conc 33.5 % (30-36); Mean Corpuscular Hemoglobin 31.3 PG (26-34); Mean Corpuscular Volume 93.3 fL (80-100); Monocytes Absolute Auto 1000 /uL (0-900); Monocytes Percent Auto 12.2 % (3-14); Neutrophils Absolute Auto 5300 /uL (1500-7000); Neutrophils Percent Auto 67.9 % (50-75); Platelet Count 114 X10^3/uL (150-400); Red Blood Cell Count 4.65 X10^6/uL (4.5-5.9); Red Cell Distribution Width 14.9 % (11.6-14.8); White Blood Cell Count 7.9 X10^3/uL (4.5-11.0)
[2021-12-29 09:12] LABS: Appearance Urine UA CLEAR; Bilirubin Urine UA NEGATIVE (NEGATIVE); Color Urine UA YELLOW; Glucose Urine UA TRACE g/dL (Negative); Ketones Urine UA NEGATIVE (NEGATIVE); Leukocyte Esterase Urine UA NEGATIVE (NEGATIVE); Nitrite Urine UA NEGATIVE (Negative); Occult Blood Urine UA TRACE-LYSED (Negative); Protein Urine UA NEGATIVE (Negative); Specific Gravity Urine UA 1.015 (1.000-1.035); Urobilinogen Urine UA 0.2 E.U./dL (0.2)
[2021-12-29 09:22] LABS: COVID19 -Nasal RAPID Negative (Negative)
[2021-12-29 09:40] LABS: Bacteria Urine Occasional (0-1); Culture Indicated Urine Cult Not Indicated; RBC Urine 0-1/HPF (0-5/HPF); Squamous Epithelial Cell Urine 0-1 /HPF (0-5/HPF); WBC Urine 0-1/HPF (0-5/HPF)
[2021-12-29 10:01] LABS: Alanine Aminotransferase 23 IU/L (<50); Albumin 4.2 g/dL (3.5-5.0); Albumin Globulin Ratio 1.2 (1.0-2.8); Alkaline Phosphatase 73 U/L (38-126); Aspartate Aminotransferase 30 IU/L (17-59); BUN Creatinine Ratio 14.1 (6-22); Bilirubin Total 0.8 mg/dL (0.2-1.3); Blood Urea Nitrogen 12 mg/dL (9-20); Calcium 9.2 mg/dL (8.4-10.2); Carbon Dioxide 29 mmol/L (22-32); Chloride 105 mmol/L (98-107); Creatine Kinase 77 U/L (55-170); Estimated Glomerular Filt Rate > 60 mL/min (>60); Globulin 3.6 g/dL (1.7-4.1); Glucose 107 mg/dL (80-110); HEMOLYSIS < 15 (0-50); Magnesium 2.2 mg/dL (1.6-2.3); Potassium 3.9 mmol/L (3.4-5.1); Sodium 142 mmol/L (137-145); Total Protein 7.8 g/dL (6.3-8.2)
[2021-12-29 10:13] LABS: NT-proBNP (BNP-Adult 18+) 1100 pg/mL (<450); Troponin I < 0.012 ng/mL (0.01-0.034)
[2021-12-29 12:16] LABS: Creatine Kinase 64 U/L (55-170)
[2021-12-29 12:28] LABS: Troponin I < 0.012 ng/mL (0.01-0.034)
--- NOTE | 2021-12-29 13:42 | PC.NURSE ---
ambulated without incident with his walker
== END 2021-12-29 13:55 | disposition home or self-care (01) ==
PROVIDERS: Emergency Provider Emergency Medicine; PCP Family Medicine
DX: I10 Essential (primary) hypertension (principal); R51.9 Headache, unspecified; R07.89 Other chest pain; Z79.01 Long term (current) use of anticoagulants; Z79.899 Other long term (current) drug therapy; Z20.822 Contact with and (suspected) exposure to COVID-19
CPT/HCPCS: 36415; 70450; 71045; 80053; 81001; 82550; 83735; 83880; 84484; 85025; 87635; 93005; 96360; 99284; C9803

== ENCOUNTER 2022-02-16 07:46 | Emergency (ER) | payer MEDICARE, SELFPAY ==
[2022-02-16] VITALS (21 sets, daily range): BP systolic 146–177; BP diastolic 65–100; PULSE 74–137; RESP 12–34; TEMP 36.7; O2SAT 94–98
--- NOTE | 2022-02-16 07:48 | DI.CT.S_ITS ---
PROCEDURE: CT HEAD/BRAIN WO CON INDICATIONS: confusion TECHNIQUE: Noncontrast 4.5 mm thick angled axial sections acquired from the foramen magnum to the vertex, with coronal and sagittal reformats. For radiation dose reduction, the following was used: automated exposure control, adjustment of mA and/or kV according to patient size. COMPARISON: [facility], CT, CT HEAD/BRAIN WO CON, 12/29/2021, 8:29. FINDINGS: Image quality: Good CSF spaces: Basal cisterns are patent. Lateral ventricles are symmetric. Volume: Vascular calcifications. Periventricular white matter disease is commonly seen with chronic microangiopathy. Volume loss is present. These findings are mild to moderate Brain: No intracranial hemorrhage. Garcia-white differentiation is grossly maintained. Craniofacial structures: No displaced fracture. Sinuses are clear. Orbits are intact. IMPRESSION: No acute intracranial abnormality. Dictated by: Jayden Beatty M.D. on 02/16/2022 at 7:19 Approved by: Jayden Beatty M.D. on 02/16/2022 at 7:21
--- NOTE | 2022-02-16 07:49 | DI.RAD.S_ITS ---
PROCEDURE: XR CHEST 1V INDICATIONS: confuison TECHNIQUE: One view of the chest was acquired. COMPARISON: [facility], CR, XR CHEST 1V, 12/29/2021, 8:59. [facility], CR, XR CHEST 2V, 10/04/2021, 10:09. FINDINGS: Surgical changes and devices: None. Lungs and pleura: Lung volumes are lower than before, limiting evaluation. Suspected right basal mild opacity. Haziness over the lung apices may be due to overlying soft tissues, not well seen. No large effusions. Mediastinum: Heart size is borderline enlarged. Bones and chest wall: No suspicious bony lesions. Overlying soft tissues appear unremarkable. IMPRESSION: Lung volumes are lower than prior imaging. Possible right base opacity could represent atelectasis or airspace disease. Haziness over the lung apices may be due to overlapping soft tissues. Consider future imaging surveillance to assess for resolution. Dictated by: Jayden Beatty M.D. on 02/16/2022 at 7:22 Approved by: Jayden Beatty M.D. on 02/16/2022 at 7:23
--- NOTE | 2022-02-16 08:16 | ED_ITS ---
HPI - Altered Mental Status General Chief Complaint: Altered Mental Status Stated Complaint: Fall, Confused Time Seen by Provider: 02/16/22 07:48 Source: EMS Mode of arrival: EMS History of Present Illness HPI narrative: Patient is an 79-year-old male history of atrial fibrillation on Eliquis, congestive heart failure, dementia, presenting today with increasing altered mental status. He lives independently with his girlfriend girlfriend noticed that he was very confused this morning. EMS was called. He is really not able to answer questions or follow commands. EMS reports that they have seen him previously not this evening but this is a significant change in his mental status. Glucose was greater than 100. He is moving all extremities but really not able to follow any sort of commands. There is no evidence of trauma. Pat chris family at bedside daughter saw him yesterday around 2:00 p.m. states that he seemed to be at his baseline. He does have fluctuating days due to the dementia but certainly this is significantly worse. Related Data Home Medications Medication Instructions Recorded Confirmed albuterol 90 mcg/actuation aerosol mcg inhalation 06/08/21 02/03/22 inhaler coenzyme Q10 10 mg capsule (Co 10 mg PO ONCE 06/08/21 02/03/22 Q-10) Previous Rx's Medication Instructions Recorded apixaban 5 mg tablet (Eliquis) 5 mg PO BID #180 tabs 07/18/21 digoxin 125 mcg (0.125 mg) tablet 125 mcg PO DAILY #90 tabs 07/18/21 furosemide 40 mg tablet 40 mg PO DAILY #90 tabs 08/27/21 metoprolol succinate 100 mg 100 mg PO DAILY #90 tabs 08/27/21 tablet,extended release 24 hr tamsulosin 0.4 mg capsule 0.4 mg PO DAILY #90 caps 08/27/21 hydrocodone 5 mg-acetaminophen 325 1 tab PO Q6H PRN pain #120 tabs 12/19/21 mg tablet amoxicillin 250 mg capsule 250 mg PO TID #30 caps 02/03/22 potassium chloride 8 mEq 8 meq PO DAILY #90 caps 02/03/22 capsule,extended release gabapentin 100 mg capsule 100 mg PO BID #60 caps 02/12/22 Allergies Allergy/AdvReac Type Severity Reaction Status Date / Time No Known Drug Allergies Allergy Verified 02/16/22 08:06 Review of Systems Review of Systems ROS Unobtainable: Unobtainable due to medical condition Patient History Medical History Asthma Atrial fibrillation BPH (benign prostatic hyperplasia) Cervical spine disease CHF (congestive heart failure) Dementia Disease of spine Facial basal cell cancer Hearing loss Hepatitis Hyperlipidemia Jaundice Lumbar stenosis with neurogenic claudication Osteoarthritis Shoulder pain Vision disorder Surgical History Anesthesia History of cataract removal with insertion of prosthetic lens History of discectomy (~2001) History of fusion of cervical spine (~2001) History of lumbar laminectomy (~2001) Family History Mother Cancer Brother History of kidney cancer Sister History of heart disease Social History Smoking Status: Never smoker Smoking Status: Never smoker alcohol intake frequency: 0-2 drinks per day Substance Use Type: does not use Exam Initial Vital Signs Initial Vital Signs: Vital Signs Temperature 98.0 F 02/16/22 07:51 Pulse Rate 113 H 02/16/22 07:51 Respiratory Rate 18 02/16/22 07:51 Blood Pressure 161/91 H 02/16/22 07:51 Pulse Oximetry 95 02/16/22 07:51 Oxygen Delivery Method 02/16/22 07:51 GENERAL: Confused pleasant 87-year-old male and in no acute distress. HEENT: Head atraumatic,EOMI, pupils reactive, face symmetric, moist mucous membranes CARDIOVASCULAR: Regular rate and rhythm without murmurs, rubs or gallops. RESPIRATORY: Breath sounds equal bilaterally, no wheezes rales or rhonchi. ABDOMEN: Soft, nontender. Normoactive bowel sounds all 4 quadrants. No guarding or rebound. EXTREMITIES: Normal range of motion, no clubbing or edema. Neurovascularly intact NEUROLOGICAL: Alert and oriented x1. Moving extremities no gross bony deformity SKIN: Warm, dry, no laceration, no petechiae, no rashes or lesions. Course Orders Ordered: ED Orders 02/16/22 07:48 CT head/brain wo con Stat 02/16/22 07:49 XR chest 1V Stat 02/16/22 08:28 EKG-12 Lead Stat 02/16/22 08:45 Urinalysis and Microscopic Stat Urine Culture Stat Urine Drug Screen, Rapid Stat 02/16/22 08:55 Acetaminophen Stat Ammonia (NH3) Stat Blood Culture Stat Complete Blood Count AUTO DIFF Stat Comprehensive Metabolic Panel Stat Digoxin Stat Ethanol (ETOH) Stat Lactate (Lactic Acid) Stat Osmolality, Serum Stat Partial Thromboplastin Time Stat Procalcitonin Stat Prolactin Stat Prothrombin Time INR Stat Salicylate Stat Thyroid Stimulating Hormone Stat Troponin & CK Cardiac Panel Stat 02/16/22 09:38 Covid-19 + FLU A/B + RSV - PCR Stat 02/16/22 12:04 MR head/brain wo con Stat 02/16/22 12:10 ABG [Arterial Blood Gas] Stat 02/16/22 12:33 Respiratory Panel (Film Array) Stat Discontinued Medications Sodium Chloride (Normal Saline 0.9%) 1,000 mls @ 150 mls/hr IV CONT JASON Last Infusion: 02/16/22 14:28 Dose: 0 mls/hr Documented By: Admin: 02/16/22 08:17 Dose: 150 mls/hr Documented By: KM Vital Signs Vital signs: Vital Signs - 8 hr 02/16/22 07:51 02/16/22 07:57 02/16/22 08:00 Temperature 98.0 F Pulse Rate 113 H 137 H 128 H Respiratory Rate 18 25 H 34 H Blood Pressure 161/91 H Pulse Oximetry 95 Oxygen Delivery Method Room Air 02/16/22 08:30 02/16/22 09:00 02/16/22 09:30 Temperature Pulse Rate 122 H 115 H 116 H Respiratory Rate 12 18 20 Blood Pressure Pulse Oximetry 94 97 Oxygen Delivery Method 02/16/22 09:38 02/16/22 09:38 02/16/22 10:00 Temperature Pulse Rate 114 H 110 H Respiratory Rate 16 18 Blood Pressure 148/65 H Pulse Oximetry 97 96 Oxygen Delivery Method 02/16/22 10:23 02/16/22 10:23 02/16/22 10:30 Temperature Pulse Rate 114 H 113 H Respiratory Rate 16 18 Blood Pressure 146/91 H Pulse Oximetry 97 94 Oxygen Delivery Method 02/16/22 11:00 02/16/22 11:30 02/16/22 12:00 Temperature Pulse Rate 80 112 H 92 H Respiratory Rate 17 18 17 Blood Pressure Pulse Oximetry 98 95 97 Oxygen Delivery Method 02/16/22 12:30 02/16/22 13:00 02/16/22 13:30 Temperature Pulse Rate 103 H 74 84 Respiratory Rate 16 15 18 Blood Pressure Pulse Oximetry 96 95 98 Oxygen Delivery Method Room Air 02/16/22 13:38 02/16/22 13:38 02/16/22 14:00 Temperature Pulse Rate 75 91 H Respiratory Rate 18 19 Blood Pressure 153/78 H Pulse Oximetry 97 97 Oxygen Delivery Method 02/16/22 14:01 02/16/22 14:01 02/16/22 14:25 Temperature Pulse Rate 91 H 110 H Respiratory Rate 21 20 Blood Pressure 177/86 H Pulse Oximetry 97 98 Oxygen Delivery Method 02/16/22 14:25 02/16/22 14:30 02/16/22 14:30 Temperature Pulse Rate 110 H Respiratory Rate 15 Blood Pressure 176/100 H 159/84 H Pulse Oximetry 97 Oxygen Delivery Method MDM - Altered Mental Status Lab Data Result diagrams: 02/16/22 08:55 02/16/22 08:55 Labs: Lab Results 02/16/22 02/16/22 02/16/22 Range/Units 08:45 08:45 08:55 WBC 8.6 (4.5-11.0) X10^3/uL RBC 4.84 (4.5-5.9) X10^6/uL Hgb 15.0 (13.5-17.5) g/dL Hct 44.2 (41-53) % MCV 91.4 (80-100) fL MCH 31.0 (26-34) PG MCHC 33.9 (30-36) % RDW 14.6 (11.6-14.8) % Plt Count 138 L (150-400) X10^3/uL Neut % (Auto) 73.2 (50-75) % Lymph % (Auto) 13.5 L (25-40) % Graves % (Auto) 9.3 (3-14) % Eos % (Auto) 3.3 (2-4) % Baso % (Auto) 0.7 (0-2) % Neut # (Auto) 6300 (8509-1488) /uL Lymph # (Auto) 1200 (6134-5398) /uL Graves # (Auto) 800 (0-900) /uL Eos # (Auto) 300 (0-450) /uL Baso # (Auto) 100 (0-100) /uL PT (10.1-12.7) SECONDS INR (0.9-1.3) APTT (26-36) SECONDS ABG pH (7.35-7.45) ABG pCO2 (35-45) mmHg ABG pO2 (80-100) mmHg ABG HCO3 (22-26) mmol/L ABG Total CO2 (21-31) mmol/L ABG O2 Saturation (95-100) % ABG Base Excess (-2-2) mmol/L FiO2 Sodium (137-145) mmol/L Potassium (3.4-5.1) mmol/L Chloride (98-107) mmol/L Carbon Dioxide (22-32) mmol/L BUN (9-20) mg/dL Creatinine (0.66-1.25) mg/dL Estimated GFR (>60) mL/min BUN/Creatinine Ratio (6-22) Glucose (80-110) mg/dL Lactate (0.7-2.1) mmol/L Calcium (8.4-10.2) mg/dL Total Bilirubin (0.2-1.3) mg/dL AST (17-59) IU/L ALT (<50) IU/L Alkaline Phosphatase (38-126) U/L Ammonia (9-30) umol/L Total Creatine Kinase (55-170) U/L CK-MB (CK-2) CK-MB (CK-2) Rel Index Troponin I (0.01-0.034) ng/mL Total Protein (6.3-8.2) g/dL Albumin (3.5-5.0) g/dL Globulin (1.7-4.1) g/dL Albumin/Globulin Ratio (1.0-2.8) Procalcitonin (<0.5) ng/mL TSH (0.47-4.68) uIU/mL Prolactin (3.7-17.9) ng/mL Urine Color Yellow Urine Appearance Clear Urine pH 7.5 (4.5-8.0) Ur Specific [place] 1.010 (1.000-1.035) Urine Protein Negative (Negative) Urine Glucose (UA) Negative (Negative) g/dL Urine Ketones Negative (NEGATIVE) Urine Occult Blood Negative (Negative) Urine Nitrate Negative (Negative) Urine Bilirubin Negative (NEGATIVE) Urine Urobilinogen 0.2 (0.2) E.U./dL Ur Leukocyte Esterase Negative (NEGATIVE) Urine RBC None seen (0-5/HPF) Urine WBC None seen (0-5/HPF) Ur Squamous Epith Cells None seen (0-5/HPF) Urine Bacteria None seen (None) Digoxin (0.8-2.0) ng/mL Salicylates (<20) mg/dL U Opiates 300ng/mL cut Negative (Negative) Ur Oxycodone Screen Negative (Negative) Urine Methadone Screen Negative (Negative) Acetaminophen (10-30) ug/mL Ur Barbiturates Screen Negative (Negative) U Tricyclic Antidepress Negative (Negative) Ur Phencyclidine Scrn Negative (Negative) Ur Amphetamines Screen Negative (Negative) U Methamphetamines Scrn Negative (Negative) Ur MDMA Scrn (Ecstasy) Negative (Negative) U Benzodiazepines Scrn Negative (Negative) Urine Cocaine Screen Negative (Negative) U Marijuana (THC) Screen Negative (Negative) Ethyl Alcohol ( - 10) mg/dL Chlamy pneumoniae PCR (Not Detect) Adenovirus (PCR) (Not Detect) B. pertussis DNA (PCR) (Not Detecte) B.parapertussis DNA PCR (Not Detecte) Coronavirus OC43 (PCR) (Not Detect) Coronavirus HKU1 (PCR) (Not Detect) Coronavirus 229E (PCR) (Not Detect) SARS-CoV-2 (PCR) (Negative) Coronavirus NL63 (PCR) (Not Detect) Human Metapneumovir PCR (Not Detect) Influenza A (RT-PCR) (NEGATIVE) Influenza Type A (PCR) (Not Detect) Influenza B (RT-PCR) (NEGATIVE) Influenza Type B (PCR) (Not Detect) M. pneumoniae (PCR) (Not Detect) Parainfluenza 1 (PCR) (Not Detect) Parainfluenza 2 (PCR) (Not Detect) Parainfluenza 3 (PCR) (Not Detect) Parainfluenza 4 (PCR) (Not Detect) RSV (PCR) (Negative) Entero/Rhino (PCR) (Not Detect) 02/16/22 02/16/22 02/16/22 Range/Units 08:55 08:55 08:55 WBC (4.5-11.0) X10^3/uL RBC (4.5-5.9) X10^6/uL Hgb (13.5-17.5) g/dL Hct (41-53) % MCV (80-100) fL MCH (26-34) PG MCHC (30-36) % RDW (11.6-14.8) % Plt Count (150-400) X10^3/uL Neut % (Auto) (50-75) % Lymph % (Auto) (25-40) % Graves % (Auto) (3-14) % Eos % (Auto) (2-4) % Baso % (Auto) (0-2) % Neut # (Auto) (1237-9450) /uL Lymph # (Auto) (0626-9027) /uL Graves # (Auto) (0-900) /uL Eos # (Auto) (0-450) /uL Baso # (Auto) (0-100) /uL PT 15.1 H (10.1-12.7) SECONDS INR 1.3 (0.9-1.3) APTT 38 H (26-36) SECONDS ABG pH (7.35-7.45) ABG pCO2 (35-45) mmHg ABG pO2 (80-100) mmHg ABG HCO3 (22-26) mmol/L ABG Total CO2 (21-31) mmol/L ABG O2 Saturation (95-100) % ABG Base Excess (-2-2) mmol/L FiO2 Sodium 142 (137-145) mmol/L Potassium 3.7 (3.4-5.1) mmol/L Chloride 102 (98-107) mmol/L Carbon Dioxide 29 (22-32) mmol/L BUN 12 (9-20) mg/dL Creatinine 0.94 (0.66-1.25) mg/dL Estimated GFR > 60 (>60) mL/min BUN/Creatinine Ratio 12.8 (6-22) Glucose 114 H (80-110) mg/dL Lactate 1.2 (0.7-2.1) mmol/L Calcium 9.1 (8.4-10.2) mg/dL Total Bilirubin 1.2 (0.2-1.3) mg/dL AST 35 (17-59) IU/L ALT 25 (<50) IU/L Alkaline Phosphatase 72 (38-126) U/L Ammonia (9-30) umol/L Total Creatine Kinase 64 (55-170) U/L CK-MB (CK-2) TNP CK-MB (CK-2) Rel Index TNP Troponin I 0.021 (0.01-0.034) ng/mL Total Protein 7.5 (6.3-8.2) g/dL Albumin 4.0 (3.5-5.0) g/dL Globulin 3.5 (1.7-4.1) g/dL Albumin/Globulin Ratio 1.1 (1.0-2.8) Procalcitonin 0.03 (<0.5) ng/mL TSH (0.47-4.68) uIU/mL Prolactin 20.7 H (3.7-17.9) ng/mL Urine Color Urine Appearance Urine pH (4.5-8.0) Ur Specific [place] (1.000-1.035) Urine Protein (Negative) Urine Glucose (UA) (Negative) g/dL Urine Ketones (NEGATIVE) Urine Occult Blood (Negative) Urine Nitrate (Negative) Urine Bilirubin (NEGATIVE) Urine Urobilinogen (0.2) E.U./dL Ur Leukocyte Esterase (NEGATIVE) Urine RBC (0-5/HPF) Urine WBC (0-5/HPF) Ur Squamous Epith Cells (0-5/HPF) Urine Bacteria (None) Digoxin (0.8-2.0) ng/mL Salicylates < 1.0 (<20) mg/dL U Opiates 300ng/mL cut (Negative) Ur Oxycodone Screen (Negative) Urine Methadone Screen (Negative) Acetaminophen < 10 (10-30) ug/mL Ur Barbiturates Screen (Negative) U Tricyclic Antidepress (Negative) Ur Phencyclidine Scrn (Negative) Ur Amphetamines Screen (Negative) U Methamphetamines Scrn (Negative) Ur MDMA Scrn (Ecstasy) (Negative) U Benzodiazepines Scrn (Negative) Urine Cocaine Screen (Negative) U Marijuana (THC) Screen (Negative) Ethyl Alcohol < 10 ( - 10) mg/dL Chlamy pneumoniae PCR (Not Detect) Adenovirus (PCR) (Not Detect) B. pertussis DNA (PCR) (Not Detecte) B.parapertussis DNA PCR (Not Detecte) Coronavirus OC43 (PCR) (Not Detect) Coronavirus HKU1 (PCR) (Not Detect) Coronavirus 229E (PCR) (Not Detect) SARS-CoV-2 (PCR) (Negative) Coronavirus NL63 (PCR) (Not Detect) Human Metapneumovir PCR (Not Detect) Influenza A (RT-PCR) (NEGATIVE) Influenza Type A (PCR) (Not Detect) Influenza B (RT-PCR) (NEGATIVE) Influenza Type B (PCR) (Not Detect) M. pneumoniae (PCR) (Not Detect) Parainfluenza 1 (PCR) (Not Detect) Parainfluenza 2 (PCR) (Not Detect) Parainfluenza 3 (PCR) (Not Detect) Parainfluenza 4 (PCR) (Not Detect) RSV (PCR) (Negative) Entero/Rhino (PCR) (Not Detect) 02/16/22 02/16/22 02/16/22 Range/Units 08:55 08:55 08:55 WBC (4.5-11.0) X10^3/uL RBC (4.5-5.9) X10^6/uL Hgb (13.5-17.5) g/dL Hct (41-53) % MCV (80-100) fL MCH (26-34) PG MCHC (30-36) % RDW (11.6-14.8) % Plt Count (150-400) X10^3/uL Neut % (Auto) (50-75) % Lymph % (Auto) (25-40) % Graves % (Auto) (3-14) % Eos % (Auto) (2-4) % Baso % (Auto) (0-2) % Neut # (Auto) (2072-4606) /uL Lymph # (Auto) (7330-7351) /uL Graves # (Auto) (0-900) /uL Eos # (Auto) (0-450) /uL Baso # (Auto) (0-100) /uL PT (10.1-12.7) SECONDS INR (0.9-1.3) APTT (26-36) SECONDS ABG pH (7.35-7.45) ABG pCO2 (35-45) mmHg ABG pO2 (80-100) mmHg ABG HCO3 (22-26) mmol/L ABG Total CO2 (21-31) mmol/L ABG O2 Saturation (95-100) % ABG Base Excess (-2-2) mmol/L FiO2 Sodium (137-145) mmol/L Potassium (3.4-5.1) mmol/L Chloride (98-107) mmol/L Carbon Dioxide (22-32) mmol/L BUN (9-20) mg/dL Creatinine (0.66-1.25) mg/dL Estimated GFR (>60) mL/min BUN/Creatinine Ratio (6-22) Glucose (80-110) mg/dL Lactate (0.7-2.1) mmol/L Calcium (8.4-10.2) mg/dL Total Bilirubin (0.2-1.3) mg/dL AST (17-59) IU/L ALT (<50) IU/L Alkaline Phosphatase (38-126) U/L Ammonia < 9 L (9-30) umol/L Total Creatine Kinase (55-170) U/L CK-MB (CK-2) CK-MB (CK-2) Rel Index Troponin I (0.01-0.034) ng/mL Total Protein (6.3-8.2) g/dL Albumin (3.5-5.0) g/dL Globulin (1.7-4.1) g/dL Albumin/Globulin Ratio (1.0-2.8) Procalcitonin (<0.5) ng/mL TSH 2.24 (0.47-4.68) uIU/mL Prolactin (3.7-17.9) ng/mL Urine Color Urine Appearance Urine pH (4.5-8.0) Ur Specific [place] (1.000-1.035) Urine Protein (Negative) Urine Glucose (UA) (Negative) g/dL Urine Ketones (NEGATIVE) Urine Occult Blood (Negative) Urine Nitrate (Negative) Urine Bilirubin (NEGATIVE) Urine Urobilinogen (0.2) E.U./dL Ur Leukocyte Esterase (NEGATIVE) Urine RBC (0-5/HPF) Urine WBC (0-5/HPF) Ur Squamous Epith Cells (0-5/HPF) Urine Bacteria (None) Digoxin < 0.4 L (0.8-2.0) ng/mL Salicylates (<20) mg/dL U Opiates 300ng/mL cut (Negative) Ur Oxycodone Screen (Negative) Urine Methadone Screen (Negative) Acetaminophen (10-30) ug/mL Ur Barbiturates Screen (Negative) U Tricyclic Antidepress (Negative) Ur Phencyclidine Scrn (Negative) Ur Amphetamines Screen (Negative) U Methamphetamines Scrn (Negative) Ur MDMA Scrn (Ecstasy) (Negative) U Benzodiazepines Scrn (Negative) Urine Cocaine Screen (Negative) U Marijuana (THC) Screen (Negative) Ethyl Alcohol ( - 10) mg/dL Chlamy pneumoniae PCR (Not Detect) Adenovirus (PCR) (Not Detect) B. pertussis DNA (PCR) (Not Detecte) B.parapertussis DNA PCR (Not Detecte) Coronavirus OC43 (PCR) (Not Detect) Coronavirus HKU1 (PCR) (Not Detect) Coronavirus 229E (PCR) (Not Detect) SARS-CoV-2 (PCR) (Negative) Coronavirus NL63 (PCR) (Not Detect) Human Metapneumovir PCR (Not Detect) Influenza A (RT-PCR) (NEGATIVE) Influenza Type A (PCR) (Not Detect) Influenza B (RT-PCR) (NEGATIVE) Influenza Type B (PCR) (Not Detect) M. pneumoniae (PCR) (Not Detect) Parainfluenza 1 (PCR) (Not Detect) Parainfluenza 2 (PCR) (Not Detect) Parainfluenza 3 (PCR) (Not Detect) Parainfluenza 4 (PCR) (Not Detect) RSV (PCR) (Negative) Entero/Rhino (PCR) (Not Detect) 02/16/22 02/16/22 02/16/22 Range/Units 09:38 12:10 12:33 WBC (4.5-11.0) X10^3/uL RBC (4.5-5.9) X10^6/uL Hgb (13.5-17.5) g/dL Hct (41-53) % MCV (80-100) fL MCH (26-34) PG MCHC (30-36) % RDW (11.6-14.8) % Plt Count (150-400) X10^3/uL Neut % (Auto) (50-75) % Lymph % (Auto) (25-40) % Graves % (Auto) (3-14) % Eos % (Auto) (2-4) % Baso % (Auto) (0-2) % Neut # (Auto) (5447-9195) /uL Lymph # (Auto) (1360-7445) /uL Graves # (Auto) (0-900) /uL Eos # (Auto) (0-450) /uL Baso # (Auto) (0-100) /uL PT (10.1-12.7) SECONDS INR (0.9-1.3) APTT (26-36) SECONDS ABG pH 7.42 (7.35-7.45) ABG pCO2 43.6 (35-45) mmHg ABG pO2 74 L (80-100) mmHg ABG HCO3 29 H (22-26) mmol/L ABG Total CO2 30 (21-31) mmol/L ABG O2 Saturation 95 (95-100) % ABG Base Excess 4.0 H (-2-2) mmol/L FiO2 21 Sodium (137-145) mmol/L Potassium (3.4-5.1) mmol/L Chloride (98-107) mmol/L Carbon Dioxide (22-32) mmol/L BUN (9-20) mg/dL Creatinine (0.66-1.25) mg/dL Estimated GFR (>60) mL/min BUN/Creatinine Ratio (6-22) Glucose (80-110) mg/dL Lactate (0.7-2.1) mmol/L Calcium (8.4-10.2) mg/dL Total Bilirubin (0.2-1.3) mg/dL AST (17-59) IU/L ALT (<50) IU/L Alkaline Phosphatase (38-126) U/L Ammonia (9-30) umol/L Total Creatine Kinase (55-170) U/L CK-MB (CK-2) CK-MB (CK-2) Rel Index Troponin I (0.01-0.034) ng/mL Total Protein (6.3-8.2) g/dL Albumin (3.5-5.0) g/dL Globulin (1.7-4.1) g/dL Albumin/Globulin Ratio (1.0-2.8) Procalcitonin (<0.5) ng/mL TSH (0.47-4.68) uIU/mL Prolactin (3.7-17.9) ng/mL Urine Color Urine Appearance Urine pH (4.5-8.0) Ur Specific [place] (1.000-1.035) Urine Protein (Negative) Urine Glucose (UA) (Negative) g/dL Urine Ketones (NEGATIVE) Urine Occult Blood (Negative) Urine Nitrate (Negative) Urine Bilirubin (NEGATIVE) Urine Urobilinogen (0.2) E.U./dL Ur Leukocyte Esterase (NEGATIVE) Urine RBC (0-5/HPF) Urine WBC (0-5/HPF) Ur Squamous Epith Cells (0-5/HPF) Urine Bacteria (None) Digoxin (0.8-2.0) ng/mL Salicylates (<20) mg/dL U Opiates 300ng/mL cut (Negative) Ur Oxycodone Screen (Negative) Urine Methadone Screen (Negative) Acetaminophen (10-30) ug/mL Ur Barbiturates Screen (Negative) U Tricyclic Antidepress (Negative) Ur Phencyclidine Scrn (Negative) Ur Amphetamines Screen (Negative) U Methamphetamines Scrn (Negative) Ur MDMA Scrn (Ecstasy) (Negative) U Benzodiazepines Scrn (Negative) Urine Cocaine Screen (Negative) U Marijuana (THC) Screen (Negative) Ethyl Alcohol ( - 10) mg/dL Chlamy pneumoniae PCR Not detected (Not Detect) Adenovirus (PCR) Not detected (Not Detect) B. pertussis DNA (PCR) Not detected (Not Detecte) B.parapertussis DNA PCR Not detected (Not Detecte) Coronavirus OC43 (PCR) Not detected (Not Detect) Coronavirus HKU1 (PCR) Not detected (Not Detect) Coronavirus 229E (PCR) Not detected (Not Detect) SARS-CoV-2 (PCR) Negative Not detected (Negative) Coronavirus NL63 (PCR) Not detected (Not Detect) Human Metapneumovir PCR Not detected (Not Detect) Influenza A (RT-PCR) Flu a negative (NEGATIVE) Influenza Type A (PCR) Not detected (Not Detect) Influenza B (RT-PCR) Flu b negative (NEGATIVE) Influenza Type B (PCR) Not detected (Not Detect) M. pneumoniae (PCR) Not detected (Not Detect) Parainfluenza 1 (PCR) Not detected (Not Detect) Parainfluenza 2 (PCR) Not detected (Not Detect) Parainfluenza 3 (PCR) Not detected (Not Detect) Parainfluenza 4 (PCR) Not detected (Not Detect) RSV (PCR) Negative Not detected (Negative) Entero/Rhino (PCR) Not detected (Not Detect) Imaging Data CT scan - head: Radiologist's Impression: Signed Patient: Bassam Cox MR#: [id number] : 1935 Acct:[id number] Age/Sex: 87 / M Date of Service: 02/16/22 Loc: ED Accession Number: [id number] ?? Procedure: CT head/brain wo con Ordering Provider: Trinh Sidhu D.O. PROCEDURE:? CT HEAD/BRAIN WO CON ? INDICATIONS:? confusion ? TECHNIQUE:? Noncontrast 4.5 mm thick angled axial sections acquired from the foramen magnum to the vertex, with coronal and sagittal reformats.? For radiation dose reduction, the following was used:? automated exposure control, adjustment of mA and/or kV according to patient size.? ? COMPARISON:? [facility], CT, CT HEAD/BRAIN WO CON, 12/29/2021, 8:29. ? FINDINGS:? Image quality:? Good ? CSF spaces: Basal cisterns are patent. Lateral ventricles are symmetric. Volume:? Vascular calcifications. Periventricular white matter disease is commonly seen with chronic microangiopathy. Volume loss is present. These findings are mild to moderate ? ? Brain: No intracranial hemorrhage. Garcia-white differentiation is grossly maintained. ? Craniofacial structures: No displaced fracture. Sinuses are clear. Orbits are intact. ? IMPRESSION:? No acute intracranial abnormality. ? ? Dictated by: Jayden Beatty M.D. on 02/16/2022 at 7:19 ? ? Chest x-ray: Radiologist's Impression: XRay Report Signed Patient: Bassam Cox MR#: [id number] : 1935 Acct:[id number] Age/Sex: 87 / M Date of Service: 02/16/22 Loc: ED Accession Number: [id number] ?? Procedure: XR chest 1V Ordering Provider: Trinh Sidhu D.O. PROCEDURE:? XR CHEST 1V ? INDICATIONS:? confuison ? TECHNIQUE:? One view of the chest was acquired.? ? COMPARISON:? [facility], CR, XR CHEST 1V, 12/29/2021, 8:59.? [facility], CR, XR CHEST 2V, 10/04/2021, 10:09. ? FINDINGS:? ? Surgical changes and devices:? None.? ? Lungs and pleura:? Lung volumes are lower than before, limiting evaluation.? Suspected right basal mild opacity.? Haziness over the lung apices may be due to overlying soft tissues, not well seen.? No large effusions. ? Mediastinum:? Heart size is borderline enlarged. ? Bones and chest wall:? No suspicious bony lesions.? Overlying soft tissues appear unremarkable.? ? IMPRESSION:? Lung volumes are lower than prior imaging.? Possible right base opacity could represent atelectasis or airspace disease.? Haziness over the lung apices may be due to overlapping soft tissues.? Consider future imaging surveillance to assess for resolution. ? ? ? Dictated by: Jayden Beatty M.D. on 02/16/2022 at 7:22 ? ? ECG Data Interpretation: Atrial fibrillation rate [address] changes similar to previous EKG December 21 although rate is slightly faster today MDM Narrative Medical decision making narrative: Patient is a 87-year-old male with history of dementia presenting today with increasing mental status change. Head CT is negative for any intracranial hemorrhage despite Eliquis. He is neurologically intact but confused. There is no evidence of infection. Blood work is overall reassuring. Due to testing and machine it problem his COVID influenza RSV test took quite awhile and was negative. Respiratory panel was then done and still negative. ABG is within normal limits awake alert in speaking. His mental status actually improved in the ED. at this time would need MRI to rule out TIA or CVA. Patient now is quite adamant that he can not have an MRI. He said that he is tried at least 4 times with Valium for his back and due to severe claustrophobia he is unable to have an MRI. Certainly his mental status has improved. His daughter has remained at bedside the whole time. She is willing to take him home. I did discuss with Dr. Javed it about possibly admitting for metabolic encephalopathy however with improving mental status Dr. Poon hesitant to accept without definitive diagnosis and if he can not have an MRI not much to do from an in patient standpoint. The patient and daughter agree they would like to go home. Patient ambulated with a walker as he normally does without any difficulty. Discharge Plan Departure Patient Disposition: Home Clinical Impression: Altered mental status Instructions: DI for Altered Mental Status Activity Restrictions/Additional Instructions: *You have been diagnosed with altered mental status *What to do: Unfortunately at this time I do not have an explanation for your decreased mental status. MRI was not taken today can not confirm stroke. Please go home and stay with daughter for as long as needed. No infection is found. *Continue to take medications as directed *Follow up with your primary care provider in 2-3 days or call [phone] *Return to ER if you should have increasing confusion, falling or any new, worsening or concerning symptoms Prescriptions: No Action albuterol 90 mcg/actuation aerosol inhalation coenzyme Q10 [Co Q-10] 10 mg capsule 10 mg PO ONCE metoprolol succinate 100 mg tablet extended release 24 hr 100 mg PO DAILY Qty: 90 1RF tamsulosin 0.4 mg capsule 0.4 mg PO DAILY Qty: 90 1RF furosemide 40 mg tablet 40 mg PO DAILY Qty: 90 1RF hydrocodone-acetaminophen 5-325 mg tablet 1 tab PO Q6H PRN (Reason: pain) Qty: 120 0RF gabapentin 100 mg capsule 100 mg PO BID Qty: 60 1RF Eliquis 5 mg tablet 5 mg PO BID Qty: 180 3RF digoxin 125 mcg (0.125 mg) tablet 125 mcg PO DAILY Qty: 90 3RF potassium chloride 8 mEq capsule, extended release 8 meq PO DAILY Qty: 90 1RF amoxicillin 250 mg capsule 250 mg PO TID Qty: 30 1RF Referrals: Nathaniel Sarmiento, [Primary Care Provider] - Visit Report Forms: Patient Portal/API
[2022-02-16] MEDS: SODIUM CHLORIDE 0.9% 1,000 ML 150 ML IV (08:17)
[2022-02-16 08:51] LABS: Appearance Urine UA CLEAR; Bilirubin Urine UA NEGATIVE (NEGATIVE); Color Urine UA YELLOW; Glucose Urine UA NEGATIVE (Negative); Ketones Urine UA NEGATIVE (NEGATIVE); Leukocyte Esterase Urine UA NEGATIVE (NEGATIVE); Nitrite Urine UA NEGATIVE (Negative); Occult Blood Urine UA NEGATIVE (Negative); Protein Urine UA NEGATIVE (Negative); Urobilinogen Urine UA 0.2 E.U./dL (0.2); pH Urine UA 7.5 (4.5-8.0)
[2022-02-16 08:52] LABS: UR Morphine/Opiate cutoff 300 Negative (Negative); Ur Creatinine Normal (Normal); Ur Specific Gravity Normal (Normal); Urine Amphetamines Negative (Negative); Urine Barbiturates Negative (Negative); Urine Benzodiazepines Negative (Negative); Urine Cocaine Negative (Negative); Urine MDMA Negative (Negative); Urine Methadone Negative (Negative); Urine Methamphetamines Negative (Negative); Urine Oxycodone Negative (Negative); Urine Phencyclidine Negative (Negative); Urine Tetrahydrocannabinol Negative (Negative); Urine Tricyclic Antidepressant Negative (Negative); Urine pH Normal (Normal)
[2022-02-16 09:18] LABS: INR 1.3 (0.9-1.3); Prothrombin Time 15.1 SECONDS (10.1-12.7)
[2022-02-16 09:20] LABS: PTT Partial Thromboplastin Tim 38 SECONDS (26-36)
[2022-02-16 09:21] LABS: Lactate (Lactic Acid) 1.2 mmol/L (0.7-2.1)
[2022-02-16 09:23] LABS: Acetaminophen < 10 ug/mL (10-30); Alanine Aminotransferase 25 IU/L (<50); Albumin Globulin Ratio 1.1 (1.0-2.8); Alkaline Phosphatase 72 U/L (38-126); Ammonia (NH3) < 9 umol/L (9-30); Aspartate Aminotransferase 35 IU/L (17-59); BUN Creatinine Ratio 12.8 (6-22); Bilirubin Total 1.2 mg/dL (0.2-1.3); Blood Urea Nitrogen 12 mg/dL (9-20); Calcium 9.1 mg/dL (8.4-10.2); Carbon Dioxide 29 mmol/L (22-32); Chloride 102 mmol/L (98-107); Creatine Kinase 64 U/L (55-170); Estimated Glomerular Filt Rate > 60 mL/min (>60); Ethanol (ETOH) < 10 mg/dL; Globulin 3.5 g/dL (1.7-4.1); Glucose 114 mg/dL (80-110); HEMOLYSIS < 15 (0-50); Potassium 3.7 mmol/L (3.4-5.1); Salicylate < 1.0 mg/dL (<20); Sodium 142 mmol/L (137-145); Total Protein 7.5 g/dL (6.3-8.2)
[2022-02-16 09:27] LABS: Add Manual Diff / Slide Review NO; Basophils Absolute Auto 100 /uL (0-100); Basophils Percent Auto 0.7 % (0-2); Eosinophils Absolute Auto 300 /uL (0-450); Eosinophils Percent Auto 3.3 % (2-4); Hematocrit 44.2 % (41-53); Lymphocytes Absolute Auto 1200 /uL (1100-4500); Lymphocytes Percent Auto 13.5 % (25-40); Mean Corpuscular HGB Conc 33.9 % (30-36); Mean Corpuscular Volume 91.4 fL (80-100); Monocytes Absolute Auto 800 /uL (0-900); Monocytes Percent Auto 9.3 % (3-14); Neutrophils Absolute Auto 6300 /uL (1500-7000); Neutrophils Percent Auto 73.2 % (50-75); Platelet Count 138 X10^3/uL (150-400); Red Blood Cell Count 4.84 X10^6/uL (4.5-5.9); Red Cell Distribution Width 14.6 % (11.6-14.8); White Blood Cell Count 8.6 X10^3/uL (4.5-11.0)
[2022-02-16 09:34] LABS: Troponin I 0.021 ng/mL (0.01-0.034)
[2022-02-16 09:39] LABS: Procalcitonin 0.03 ng/mL (<0.5); Prolactin 20.7 ng/mL (3.7-17.9)
[2022-02-16 09:43] LABS: Bacteria Urine None Seen; RBC Urine None Seen (0-5/HPF); Squamous Epithelial Cell Urine None Seen (0-5/HPF); WBC Urine None Seen (0-5/HPF)
[2022-02-16 09:51] LABS: Digoxin < 0.4 ng/mL (0.8-2.0)
[2022-02-16 10:19] LABS: Thyroid Stimulating Hormone 2.24 uIU/mL (0.47-4.68)
[2022-02-16 11:51] LABS: Influenza A - CEPHEID Flu A NEGATIVE (NEGATIVE); Influenza B - CEPHEID Flu B NEGATIVE (NEGATIVE); Respiratory Syncytial Virus Negative (Negative)
[2022-02-16 11:54] LABS: COVID-19 CEPHEID 4-PLEX PCR Negative (Negative)
[2022-02-16 12:20] LABS: HCO3 ABG 29 mmol/L (22-26); PCO2 ABG 43.6 mmHg (35-45); PO2 ABG 74 mmHg (80-100); TCO2 ABG 30 mmol/L (21-31); pH ABG 7.42 (7.35-7.45)
[2022-02-16 12:21] LABS: Fractionated Inspired Oxygen 21; Oxygen Saturation ABG 95 % (95-100)
[2022-02-16 13:29] LABS: Adenovirus Not Detected (Not Detect); B. parapertussis Not Detected (Not Detecte); Bordetella pertussis Not Detected (Not Detecte); Chlamydophila pneumoniae Not Detected (Not Detect); Coronavirus 229E Not Detected (Not Detect); Coronavirus HKU1 Not Detected (Not Detect); Coronavirus NL 63 Not Detected (Not Detect); Coronavirus OC43 Not Detected (Not Detect); Human Metapneumovirus Not Detected (Not Detect); Human Rhinovirus/Enterovirus Not Detected (Not Detect); Influenza A Not Detected (Not Detect); Influenza B Not Detected (Not Detect); Mycoplasma pneumoniae Not Detected (Not Detect); Parainfluenza Virus 1 Not Detected (Not Detect); Parainfluenza Virus 2 Not Detected (Not Detect); Parainfluenza Virus 3 Not Detected (Not Detect); Parainfluenza Virus 4 Not Detected (Not Detect); Respiratory Syncytial Virus Not Detected (Not Detect); SARS- CoV-2 Not Detected (Not Detecte)
--- NOTE | 2022-02-16 14:28 | PC.NURSE ---
Pt ambulated around department with walker, steady gait, tolerated well. Dr. Sidhu aware.
[2022-02-17 18:14] LABS: Osmolality, Serum 294 mOsmol/kg (280-301)
== END 2022-02-16 14:43 | disposition home or self-care (01) ==
PROVIDERS: Emergency Provider Emergency Medicine; PCP Family Medicine
DX: R41.82 Altered mental status, unspecified (principal); I48.20 Chronic atrial fibrillation, unspecified; Z79.01 Long term (current) use of anticoagulants; I50.9 Heart failure, unspecified; F03.90 Unspecified dementia, unspecified severity, without behavioral disturbance, psychotic disturbance, mood disturbance, and anxiety; Z79.899 Other long term (current) drug therapy; Z20.822 Contact with and (suspected) exposure to COVID-19
CPT/HCPCS: 0241U; 36415; 36600; 70450; 71045; 80053; 80162; 80305; 80320; 80329; 81001; 82140; 82550; 82805; 83605; 83930; 84145; 84146; 84443; 84484; 85025; 85610; 85730; 87040; 87086; 87633; 93005; 96360; 96361; 99284; G0480

== ENCOUNTER 2022-03-09 22:07 | Emergency (ER) | payer MEDICARE, SELFPAY ==
--- NOTE | 2022-03-09 22:11 | ED_ITS ---
HPI - General Adult <Romianloren Valladarescarl - Last Filed: 03/15/22 10:14> General Chief complaint: Fall Stated complaint: GLF/ Thinners Time Seen by Provider: 03/09/22 22:10 History of Present Illness HPI narrative: 87-year-old male nonsmoker with history of atrial fibrillation on anticoagulation, CHF, hyperlipidemia, dementia and lumbar stenosis presents by EMS for evaluation of a ground level fall with head injury while on anticoagulation. He lives in the independent living facility locally though he does see his son daily. He has chronic back pain and has been hesitant to take his pain medications as he is concerned that there may be fentanyl mixed in with the hydrocodone and he has seen many news stories about the dangers of fentanyl. He frequently has severe back pain and is limited in his range of motion and seems to be falling with increased frequency recently. He has been very resistant to consider any increased level of care. It is unclear exactly what led to his fall today but he denies any change in medications or diet, denies any obvious dizziness or lightheadedness. He states it as a consequence of the fall he has increasing pain in his low back that is certainly worse when he moves and improves with rest Related Data Home Medications Medication Instructions Recorded Confirmed furosemide 40 mg tablet 20 mg PO DAILY 03/19/22 03/19/22 Previous Rx's Medication Instructions Recorded digoxin 125 mcg (0.125 mg) tablet 125 mcg PO DAILY #90 tabs 07/18/21 potassium chloride 8 mEq 8 meq PO DAILY #90 caps 02/03/22 capsule,extended release gabapentin 100 mg capsule 100 mg PO BID #60 caps 02/12/22 hydrocodone 5 mg-acetaminophen 325 1 tab PO Q6H PRN pain #90 tabs 02/18/22 mg tablet metoprolol succinate 100 mg 100 mg PO DAILY #90 tabs 02/20/22 tablet,extended release 24 hr tamsulosin 0.4 mg capsule 0.4 mg PO DAILY #90 caps 02/20/22 quetiapine 25 mg tablet (Seroquel) 12.5 - 25 mg PO BID PRN aggitation 03/12/22 #60 tabs meloxicam 7.5 mg tablet 7.5 mg PO DAILY #30 tabs 03/19/22 Allergies Allergy/AdvReac Type Severity Reaction Status Date / Time No Known Drug Allergies Allergy Verified 03/19/22 08:33 Review of Systems <Romain Novak DO - Last Filed: 03/15/22 10:14> Review of Systems Narrative: GENERAL: Denies chills, fatigue, malaise, fever, sweats. HEENT: Denies sinus pain, ear pain, sore throat, difficulty swallowing, dizziness. RESPIRATORY: Denies dyspnea, cough, wheezing, hemoptysis, sputum. CARDIOVASCULAR: Denies chest pain, palpitations, orthopnea, edema, GASTROINTESTINAL: Denies nausea, vomiting, abdominal pain, diarrhea, cons tipation, melena. : Denies dysuria, frequency, incontinence, hematuria, urinary retention. MUSCULOSKELETAL: See HPI SKIN: Denies rash, skin lesions, or other NEUROLOGIC: See HPI PSYCHIATRIC: No concerning psychosocial issues. 12 point review of systems is negative except for those stated above Patient History <Romain Novak DO - Last Filed: 03/15/22 10:14> Medical History Asthma Atrial fibrillation BPH (benign prostatic hyperplasia) Cervical spine disease CHF (congestive heart failure) Dementia Disease of spine Facial basal cell cancer Hearing loss Hepatitis Hyperlipidemia Jaundice Lumbar stenosis with neurogenic claudication Osteoarthritis Shoulder pain Vision disorder Surgical History Anesthesia History of cataract removal with insertion of prosthetic lens History of discectomy (~2001) History of fusion of cervical spine (~2001) History of lumbar laminectomy (~2001) Family History Mother Cancer Brother History of kidney cancer Sister History of heart disease Social History household members: none Smoking Status: Never smoker Smoking Status: Never smoker alcohol intake frequency: 0-2 drinks per day Substance Use Type: does not use Exam <Romain Novak DO - Last Filed: 03/15/22 10:14> Narrative Exam Narrative: GENERAL: [87] year old patient appears stated age. Well-developed patient, in mild distress. Hard of hearing and pleasantly confused, at neurologic baseline per family HEAD: Atraumatic. Normocephalic. No contusion, abrasion or laceration, no evidence of depressed skull fracture EYES: Pupils equal round and reactive. No hyphema Extraocular motions intact. No scleral icterus. No injection or drainage. ENT: Nose without bleeding, purulent drainage. Throat without erythema, ton sillar hypertrophy or exudate. Airway patent. NECK: Trachea midline. Non tender CARDIOVASCULAR: Regular rate and rhythm without murmurs, gallops, or rubs. RESPIRATORY: Clear to auscultation. Breath sounds equal bilaterally. No wheezes, rales, or rhonchi. GASTROINTESTINAL: Abdomen soft, non-tender, nondistended. EXTREMITIES: No edema or joint tenderness. BACK: Low back pain to palpation, in the midline and also across to both sides. No obvious contusion, abrasion or laceration, no step-offs or crepitance, no saddle anesthesia lower extremity numbness, tingling or weakness NEURO: Cranial nerves 2-12 grossly intact SKIN: Superficial abrasion on palm of left hand without any evidence of need for repair Initial Vital Signs Initial Vital Signs: Vital Signs Temperature 97.8 F 03/09/22 22:18 Pulse Rate 61 03/09/22 22:18 Respiratory Rate 17 03/09/22 22:18 Blood Pressure 201/96 H 03/09/22 22:18 Pulse Oximetry 98 03/09/22 22:18 Oxygen Delivery Method 03/09/22 22:18 <Trinh Sidhu DO - Last Filed: 03/13/22 07:51> Initial Vital Signs Initial Vital Signs: Vital Signs Temperature 97.8 F 03/09/22 22:18 Pulse Rate 61 03/09/22 22:18 Respiratory Rate 17 03/09/22 22:18 Blood Pressure 201/96 H 03/09/22 22:18 Pulse Oximetry 98 03/09/22 22:18 Oxygen Delivery Method 03/09/22 22:18 <Geovanni Becerra DO - Last Filed: 03/12/22 14:25> Initial Vital Signs Initial Vital Signs: Vital Signs Temperature 97.8 F 03/09/22 22:18 Pulse Rate 61 03/09/22 22:18 Respiratory Rate 17 03/09/22 22:18 Blood Pressure 201/96 H 03/09/22 22:18 Pulse Oximetry 98 03/09/22 22:18 Oxygen Delivery Method 03/09/22 22:18 Course <Romain Novak DO - Last Filed: 03/15/22 10:14> Orders Ordered: Discontinued Medications Hydrocodone Bitart/Acetaminophen (Hydrocodone/Acet 5/325 Tablet) 1 tab PO NOW ONE Stop: 03/10/22 00:44 Last Admin: 03/10/22 00:56 Dose: 1 tab Documented By: [place] Hydrocodone Bitart/Acetaminophen (Hydrocodone/Acet 5/325 Tablet) 1 tab PO NOW ONE Stop: 03/10/22 08:52 Last Admin: 03/10/22 10:16 Dose: 1 tab Documented By: ADRI Hydrocodone Bitart/Acetaminophen (Hydrocodone/Acet 5/325 Tablet) 1 tab PO Q6HR PRN PRN Reason: Pain, Moderate (4-6) Last Admin: 03/10/22 23:08 Dose: 1 tab Documented By: Admin: 03/10/22 16:52 Dose: 1 tab Documented By: AMADOU Digoxin (Digoxin 0.125 Mg Tablet) 0.125 mg PO DAILY [facility] Last Admin: 03/12/22 09:40 Dose: 0.125 mg Documented By: ADRI(2) Admin: 03/11/22 10:59 Dose: 0.125 mg Documented By: Admin: 03/10/22 16:52 Dose: 0.125 mg Documented By: AMADOU Furosemide (Furosemide 20 Mg Tablet) 20 mg PO DAILY [facility] Last Admin: 03/10/22 20:16 Dose: Not Given Documented By: Admin: 03/10/22 20:16 Dose: Not Given Documented By: AMADOU Furosemide (Furosemide 20 Mg Tablet) 20 mg PO DAILY [facility] Last Admin: 03/12/22 09:43 Dose: 20 mg Documented By: ADRI(2) Admin: 03/11/22 10:57 Dose: 20 mg Documented By: Admin: 03/10/22 16:53 Dose: 20 mg Documented By: AMADOU Gabapentin (Gabapentin 100 Mg Capsule) 100 mg PO BID [facility] Last Admin: 03/12/22 09:44 Dose: 100 mg Documented By: ADRI(2) Admin: 03/11/22 22:11 Dose: Not Given Documented By: Admin: 03/11/22 10:57 Dose: 100 mg Documented By: Admin: 03/10/22 21:30 Dose: 100 mg Documented By: [place] Haloperidol (Haloperidol 5 Mg/Ml Vial) 2 mg IV NOW ONE Stop: 03/10/22 21:44 Last Admin: 03/10/22 22:20 Dose: 2 mg Documented By: [place] Haloperidol (Haloperidol 5 Mg/Ml Vial) 2 mg IV NOW ONE Stop: 03/11/22 00:52 Last Admin: 03/11/22 10:51 Dose: Not Given Documented By: PARISH Haloperidol (Haloperidol 5 Mg/Ml Vial) 2 mg IM NOW ONE Stop: 03/11/22 01:35 Last Admin: 03/11/22 01:35 Dose: 2 mg Documented By: [place] Haloperidol (Haloperidol 1 Mg Tablet) 1 mg PO NOW ONE Stop: 03/11/22 20:21 Last Admin: 03/11/22 21:54 Dose: Not Given Documented By: KARLA Sodium Chloride (Normal Saline 0.9%) 500 mls @ 1,000 mls/hr IV BOLUS ONE Stop: 03/09/22 22:43 Last Infusion: 03/09/22 23:43 Dose: 0 mls/hr Documented By: Admin: 03/09/22 23:11 Dose: 1,000 mls/hr Documented By: [place] Metoprolol Succinate (Metoprolol Er 50 Mg Tablet) 100 mg PO DAILY [facility] Last Admin: 03/12/22 09:43 Dose: 100 mg Documented By: MEE2) Admin: 03/11/22 10:57 Dose: 100 mg Documented By: Admin: 03/10/22 16:53 Dose: 100 mg Documented By: AMADOU Quetiapine Fumarate (Quetiapine 25 Mg Tablet) 25 mg PO NOW ONE Stop: 03/11/22 21:48 Last Admin: 03/11/22 23:03 Dose: 25 mg Documented By: KARLA Tamsulosin HCl (Tamsulosin 0.4 Mg Capsule) 0.4 mg PO DAILY [facility] Last Admin: 03/12/22 09:43 Dose: 0.4 mg Documented By: MEE2) Admin: 03/11/22 10:58 Dose: 0.4 mg Documented By: Admin: 03/10/22 16:53 Dose: 0.4 mg Documented By: AMADOU Vital Signs Vital signs: Vital Signs - 8 hr 03/12/22 09:40 03/12/22 09:43 03/12/22 14:02 Temperature 97.7 F Pulse Rate 52 L 52 L 57 L Blood Pressure 101/54 L 101/54 L 130/63 Pulse Oximetry 99 Oxygen Delivery Method Room Air <DO Kahlil Abraham Last Filed: 03/13/22 07:51> Orders Ordered: Discontinued Medications Hydrocodone Bitart/Acetaminophen (Hydrocodone/Acet 5/325 Tablet) 1 tab PO NOW ONE Stop: 03/10/22 00:44 Last Admin: 03/10/22 00:56 Dose: 1 tab Documented By: [place] Hydrocodone Bitart/Acetaminophen (Hydrocodone/Acet 5/325 Tablet) 1 tab PO NOW ONE Stop: 03/10/22 08:52 Last Admin: 03/10/22 10:16 Dose: 1 tab Documented By: ADRI Hydrocodone Bitart/Acetaminophen (Hydrocodone/Acet 5/325 Tablet) 1 tab PO Q6HR PRN PRN Reason: Pain, Moderate (4-6) Last Admin: 03/10/22 23:08 Dose: 1 tab Documented By: Admin: 03/10/22 16:52 Dose: 1 tab Documented By: AMADOU Digoxin (Digoxin 0.125 Mg Tablet) 0.125 mg PO DAILY [facility] Last Admin: 03/12/22 09:40 Dose: 0.125 mg Documented By: ADRI(2) Admin: 03/11/22 10:59 Dose: 0.125 mg Documented By: Admin: 03/10/22 16:52 Dose: 0.125 mg Documented By: AMADOU Furosemide (Furosemide 20 Mg Tablet) 20 mg PO DAILY [facility] Last Admin: 03/10/22 20:16 Dose: Not Given Documented By: Admin: 03/10/22 20:16 Dose: Not Given Documented By: AMADOU Furosemide (Furosemide 20 Mg Tablet) 20 mg PO DAILY [facility] Last Admin: 03/12/22 09:43 Dose: 20 mg Documented By: ADRI(2) Admin: 03/11/22 10:57 Dose: 20 mg Documented By: Admin: 03/10/22 16:53 Dose: 20 mg Documented By: AMADOU Gabapentin (Gabapentin 100 Mg Capsule) 100 mg PO BID [facility] Last Admin: 03/12/22 09:44 Dose: 100 mg Documented By: ADRI(2) Admin: 03/11/22 22:11 Dose: Not Given Documented By: Admin: 03/11/22 10:57 Dose: 100 mg Documented By: Admin: 03/10/22 21:30 Dose: 100 mg Documented By: [place] Haloperidol (Haloperidol 5 Mg/Ml Vial) 2 mg IV NOW ONE Stop: 03/10/22 21:44 Last Admin: 03/10/22 22:20 Dose: 2 mg Documented By: [place] Haloperidol (Haloperidol 5 Mg/Ml Vial) 2 mg IV NOW ONE Stop: 03/11/22 00:52 Last Admin: 03/11/22 10:51 Dose: Not Given Documented By: PAR[place] Haloperidol (Haloperidol 5 Mg/Ml Vial) 2 mg IM NOW ONE Stop: 03/11/22 01:35 Last Admin: 03/11/22 01:35 Dose: 2 mg Documented By: [place] Haloperidol (Haloperidol 1 Mg Tablet) 1 mg PO NOW ONE Stop: 03/11/22 20:21 Last Admin: 03/11/22 21:54 Dose: Not Given Documented By: KARLA Sodium Chloride (Normal Saline 0.9%) 500 mls @ 1,000 mls/hr IV BOLUS ONE Stop: 03/09/22 22:43 Last Infusion: 03/09/22 23:43 Dose: 0 mls/hr Documented By: Admin: 03/09/22 23:11 Dose: 1,000 mls/hr Documented By: [place] Metoprolol Succinate (Metoprolol Er 50 Mg Tablet) 100 mg PO DAILY [facility] Last Admin: 03/12/22 09:43 Dose: 100 mg Documented By: ADRI(2) Admin: 03/11/22 10:57 Dose: 100 mg Documented By: Admin: 03/10/22 16:53 Dose: 100 mg Documented By: AMADOU Quetiapine Fumarate (Quetiapine 25 Mg Tablet) 25 mg PO NOW ONE Stop: 03/11/22 21:48 Last Admin: 03/11/22 23:03 Dose: 25 mg Documented By: KARLA Tamsulosin HCl (Tamsulosin 0.4 Mg Capsule) 0.4 mg PO DAILY [facility] Last Admin: 03/12/22 09:43 Dose: 0.4 mg Documented By: ADRI(2) Admin: 03/11/22 10:58 Dose: 0.4 mg Documented By: Admin: 03/10/22 16:53 Dose: 0.4 mg Documented By: AMADOU Vital Signs Vital signs: Vital Signs - 8 hr 03/12/22 09:40 03/12/22 09:43 03/12/22 14:02 Temperature 97.7 F Pulse Rate 52 L 52 L 57 L Blood Pressure 101/54 L 101/54 L 130/63 Pulse Oximetry 99 Oxygen Delivery Method Room Air <Geovanni Becerra, DO - Last Filed: 03/12/22 14:25> Orders Ordered: Discontinued Medications Hydrocodone Bitart/Acetaminophen (Hydrocodone/Acet 5/325 Tablet) 1 tab PO NOW ONE Stop: 03/10/22 00:44 Last Admin: 03/10/22 00:56 Dose: 1 tab Documented By: [place] Hydrocodone Bitart/Acetaminophen (Hydrocodone/Acet 5/325 Tablet) 1 tab PO NOW ONE Stop: 03/10/22 08:52 Last Admin: 03/10/22 10:16 Dose: 1 tab Documented By: ADRI Hydrocodone Bitart/Acetaminophen (Hydrocodone/Acet 5/325 Tablet) 1 tab PO Q6HR PRN PRN Reason: Pain, Moderate (4-6) Last Admin: 03/10/22 23:08 Dose: 1 tab Documented By: Admin: 03/10/22 16:52 Dose: 1 tab Documented By: AMADOU Digoxin (Digoxin 0.125 Mg Tablet) 0.125 mg PO DAILY [facility] Last Admin: 03/12/22 09:40 Dose: 0.125 mg Documented By: ADRI(2) Admin: 03/11/22 10:59 Dose: 0.125 mg Documented By: Admin: 03/10/22 16:52 Dose: 0.125 mg Documented By: AMADOU Furosemide (Furosemide 20 Mg Tablet) 20 mg PO DAILY [facility] Last Admin: 03/10/22 20:16 Dose: Not Given Documented By: Admin: 03/10/22 20:16 Dose: Not Given Documented By: AMADOU Furosemide (Furosemide 20 Mg Tablet) 20 mg PO DAILY [facility] Last Admin: 03/12/22 09:43 Dose: 20 mg Documented By: ADRI(2) Admin: 03/11/22 10:57 Dose: 20 mg Documented By: Admin: 03/10/22 16:53 Dose: 20 mg Documented By: AMADOU Gabapentin (Gabapentin 100 Mg Capsule) 100 mg PO BID [facility] Last Admin: 03/12/22 09:44 Dose: 100 mg Documented By: ADRI(2) Admin: 03/11/22 22:11 Dose: Not Given Documented By: Admin: 03/11/22 10:57 Dose: 100 mg Documented By: Admin: 03/10/22 21:30 Dose: 100 mg Documented By: [place] Haloperidol (Haloperidol 5 Mg/Ml Vial) 2 mg IV NOW ONE Stop: 03/10/22 21:44 Last Admin: 03/10/22 22:20 Dose: 2 mg Documented By: [place] Haloperidol (Haloperidol 5 Mg/Ml Vial) 2 mg IV NOW ONE Stop: 03/11/22 00:52 Last Admin: 03/11/22 10:51 Dose: Not Given Documented By: PARISH Haloperidol (Haloperidol 5 Mg/Ml Vial) 2 mg IM NOW ONE Stop: 03/11/22 01:35 Last Admin: 03/11/22 01:35 Dose: 2 mg Documented By: [place] Haloperidol (Haloperidol 1 Mg Tablet) 1 mg PO NOW ONE Stop: 03/11/22 20:21 Last Admin: 03/11/22 21:54 Dose: Not Given Documented By: KARLA Sodium Chloride (Normal Saline 0.9%) 500 mls @ 1,000 mls/hr IV BOLUS ONE Stop: 03/09/22 22:43 Last Infusion: 03/09/22 23:43 Dose: 0 mls/hr Documented By: Admin: 03/09/22 23:11 Dose: 1,000 mls/hr Documented By: [place] Metoprolol Succinate (Metoprolol Er 50 Mg Tablet) 100 mg PO DAILY [facility] Last Admin: 03/12/22 09:43 Dose: 100 mg Documented By: ADRI(2) Admin: 03/11/22 10:57 Dose: 100 mg Documented By: Admin: 03/10/22 16:53 Dose: 100 mg Documented By: AMADOU Quetiapine Fumarate (Quetiapine 25 Mg Tablet) 25 mg PO NOW ONE Stop: 03/11/22 21:48 Last Admin: 03/11/22 23:03 Dose: 25 mg Documented By: KARLA Tamsulosin HCl (Tamsulosin 0.4 Mg Capsule) 0.4 mg PO DAILY [facility] Last Admin: 03/12/22 09:43 Dose: 0.4 mg Documented By: ADRI(2) Admin: 03/11/22 10:58 Dose: 0.4 mg Documented By: Admin: 03/10/22 16:53 Dose: 0.4 mg Documented By: AMADOU Vital Signs Vital signs: Vital Signs - 8 hr 03/12/22 09:40 03/12/22 09:43 03/12/22 14:02 Temperature 97.7 F Pulse Rate 52 L 52 L 57 L Blood Pressure 101/54 L 101/54 L 130/63 Pulse Oximetry 99 Oxygen Delivery Method Room Air Medical Decision Making <Romain Kishore, DO - Last Filed: 03/15/22 10:14> Lab Data Result diagrams: 03/09/22 22:46 03/09/22 22:46 Labs: Lab Results 03/09/22 03/09/22 03/09/22 Range/Units 22:46 22:46 22:46 WBC 8.4 (4.5-11.0) X10^3/uL RBC 4.56 (4.5-5.9) X10^6/uL Hgb 14.1 (13.5-17.5) g/dL Hct 42.1 (41-53) % MCV 92.4 (80-100) fL MCH 31.0 (26-34) PG MCHC 33.5 (30-36) % RDW 14.7 (11.6-14.8) % Plt Count 131 L (150-400) X10^3/uL Neut % (Auto) 62.6 (50-75) % Lymph % (Auto) 21.9 L (25-40) % [place] % (Auto) 11.3 (3-14) % Eos % (Auto) 3.4 (2-4) % Baso % (Auto) 0.8 (0-2) % Neut # (Auto) 5300 (4193-3485) /uL Lymph # (Auto) 1800 (9749-5553) /uL [place] # (Auto) 1000 H (0-900) /uL Eos # (Auto) 300 (0-450) /uL Baso # (Auto) 100 (0-100) /uL PT 17.0 H (10.1-12.7) SECONDS INR 1.5 H (0.9-1.3) Sodium 141 (137-145) mmol/L Potassium 4.2 (3.4-5.1) mmol/L Chloride 104 (98-107) mmol/L Carbon Dioxide 30 (22-32) mmol/L BUN 14 (9-20) mg/dL Creatinine 0.89 (0.66-1.25) mg/dL Estimated GFR > 60 (>60) mL/min BUN/Creatinine Ratio 15.7 (6-22) Glucose 100 (80-110) mg/dL Calcium 8.9 (8.4-10.2) mg/dL Total Creatine Kinase (55-170) U/L CK-MB (CK-2) (<2.37) ng/mL CK-MB (CK-2) Rel Index (1.5-5.0) % Troponin I (0.01-0.034) ng/mL NT-Pro-B Natriuret Pep (<450) pg/mL SARS-CoV-2 (PCR) (Negative) Influenza A (RT-PCR) (NEGATIVE) Influenza B (RT-PCR) (NEGATIVE) RSV (PCR) (Negative) 03/09/22 03/09/22 Range/Units 22:46 23:00 WBC (4.5-11.0) X10^3/uL RBC (4.5-5.9) X10^6/uL Hgb (13.5-17.5) g/dL Hct (41-53) % MCV (80-100) fL MCH (26-34) PG MCHC (30-36) % RDW (11.6-14.8) % Plt Count (150-400) X10^3/uL Neut % (Auto) (50-75) % Lymph % (Auto) (25-40) % [place] % (Auto) (3-14) % Eos % (Auto) (2-4) % Baso % (Auto) (0-2) % Neut # (Auto) (9460-6948) /uL Lymph # (Auto) (5823-9206) /uL [place] # (Auto) (0-900) /uL Eos # (Auto) (0-450) /uL Baso # (Auto) (0-100) /uL PT (10.1-12.7) SECONDS INR (0.9-1.3) Sodium (137-145) mmol/L Potassium (3.4-5.1) mmol/L Chloride (98-107) mmol/L Carbon Dioxide (22-32) mmol/L BUN (9-20) mg/dL Creatinine (0.66-1.25) mg/dL Estimated GFR (>60) mL/min BUN/Creatinine Ratio (6-22) Glucose (80-110) mg/dL Calcium (8.4-10.2) mg/dL Total Creatine Kinase 133 (55-170) U/L CK-MB (CK-2) 2.49 H (<2.37) ng/mL CK-MB (CK-2) Rel Index 1.9 (1.5-5.0) % Troponin I 0.019 (0.01-0.034) ng/mL NT-Pro-B Natriuret Pep 436 (<450) pg/mL SARS-CoV-2 (PCR) Negative (Negative) Influenza A (RT-PCR) Flu a negative (NEGATIVE) Influenza B (RT-PCR) Flu b negative (NEGATIVE) RSV (PCR) Negative (Negative) Urine Dip Bedside Urine Glucose Negative Bedside Urine Bilirubin - Negative Bedside Urine Ketone - Negative Urine Specific [place] 1.015 Bedside Urine Occult Blood - Negative Bedside Urine pH 6.0 Bedside Urine Protein - Negative Bedside Urine Urobilinogen - Negative Bedside Urine Nitrite - Negative Bedside Urine Leukocytes - Negative Esterase Point of care testing: Urine Dip Bedside Urine Glucose Negative Bedside Urine Bilirubin - Negative Bedside Urine Ketone - Negative Urine Specific [place] 1.015 Bedside Urine Occult Blood - Negative Bedside Urine pH 6.0 Bedside Urine Protein - Negative Bedside Urine Urobilinogen - Negative Bedside Urine Nitrite - Negative Bedside Urine Leukocytes - Negative Esterase MDM Narrative Medical decision making narrative: MDM CC: GLF with mild head injury on eliquis and increased low back pain Complicating co-morbidities: Age, anticoagulation Data collected from: patient, EMS, family (son and daughter in law) Medical records reviewed: Multiple prior ED visits Differential considered: Polytrauma secondary to fall, possibility of medical reason to cause the fall such as stroke, acute coronary syndrome, cardiac arrhythmia, infection. Exam documented above, pertinent findings include: low back pain on exam, no other significant findings Lab Test results independently reviewed as above. Pertinent findings: No significant abnormalities such as signs of infection, anemia, electrolyte abnormality, kidney failure or troponin abnormality Imaging studies independently reviewed: No abnormal findings on head CT, cervical spine CT or lumbar spine CT Treatments: liter of saline, hydrocodone Re-evaluations: minimal improvement in pain Discussion: 87-year-old male with frequent falls, chronic back pain and some dementia lives alone and is at significant risk for injury as a consequence of fall. I have spent significant time at the bedside talking with family about risks and benefits of pain control and anticoagulation including falls which result in life-threatening bleeds or if he is taken off of anticoagulation due to his increased frequency of falls he becomes a stroke risk. We have attempted orthostatics and ambulation trial and patient require significant assistance and is not appropriate for discharge at this time. I will place a physical therapy and social work consultation Patient signed out to Dr. Sidhu for final disposition Patient seen evaluated by myself this morning. Sleeping. Awaiting for PT and social work evaluation. Unsafe to go home by himself, frequent falls on anticoagulation. 03/11 ([place]) patient still pending placement, daily meds ordered, begins to , family wishes no more IM Haldol. Does well on Seroquel. <Trinh Sidhu, DO - Last Filed: 03/13/22 07:51> Lab Data Labs: Lab Results 03/09/22 03/09/22 03/09/22 Range/Units 22:46 22:46 22:46 WBC 8.4 (4.5-11.0) X10^3/uL RBC 4.56 (4.5-5.9) X10^6/uL Hgb 14.1 (13.5-17.5) g/dL Hct 42.1 (41-53) % MCV 92.4 (80-100) fL MCH 31.0 (26-34) PG MCHC 33.5 (30-36) % RDW 14.7 (11.6-14.8) % Plt Count 131 L (150-400) X10^3/uL Neut % (Auto) 62.6 (50-75) % Lymph % (Auto) 21.9 L (25-40) % [place] % (Auto) 11.3 (3-14) % Eos % (Auto) 3.4 (2-4) % Baso % (Auto) 0.8 (0-2) % Neut # (Auto) 5300 (0207-0943) /uL Lymph # (Auto) 1800 (5016-2411) /uL [place] # (Auto) 1000 H (0-900) /uL Eos # (Auto) 300 (0-450) /uL Baso # (Auto) 100 (0-100) /uL PT 17.0 H (10.1-12.7) SECONDS INR 1.5 H (0.9-1.3) Sodium 141 (137-145) mmol/L Potassium 4.2 (3.4-5.1) mmol/L Chloride 104 (98-107) mmol/L Carbon Dioxide 30 (22-32) mmol/L BUN 14 (9-20) mg/dL Creatinine 0.89 (0.66-1.25) mg/dL Estimated GFR > 60 (>60) mL/min BUN/Creatinine Ratio 15.7 (6-22) Glucose 100 (80-110) mg/dL Calcium 8.9 (8.4-10.2) mg/dL Total Creatine Kinase (55-170) U/L CK-MB (CK-2) (<2.37) ng/mL CK-MB (CK-2) Rel Index (1.5-5.0) % Troponin I (0.01-0.034) ng/mL NT-Pro-B Natriuret Pep (<450) pg/mL SARS-CoV-2 (PCR) (Negative) Influenza A (RT-PCR) (NEGATIVE) Influenza B (RT-PCR) (NEGATIVE) RSV (PCR) (Negative) 03/09/22 03/09/22 Range/Units 22:46 23:00 WBC (4.5-11.0) X10^3/uL RBC (4.5-5.9) X10^6/uL Hgb (13.5-17.5) g/dL Hct (41-53) % MCV (80-100) fL MCH (26-34) PG MCHC (30-36) % RDW (11.6-14.8) % Plt Count (150-400) X10^3/uL Neut % (Auto) (50-75) % Lymph % (Auto) (25-40) % [place] % (Auto) (3-14) % Eos % (Auto) (2-4) % Baso % (Auto) (0-2) % Neut # (Auto) (5368-0594) /uL Lymph # (Auto) (0162-8619) /uL [place] # (Auto) (0-900) /uL Eos # (Auto) (0-450) /uL Baso # (Auto) (0-100) /uL PT (10.1-12.7) SECONDS INR (0.9-1.3) Sodium (137-145) mmol/L Potassium (3.4-5.1) mmol/L Chloride (98-107) mmol/L Carbon Dioxide (22-32) mmol/L BUN (9-20) mg/dL Creatinine (0.66-1.25) mg/dL Estimated GFR (>60) mL/min BUN/Creatinine Ratio (6-22) Glucose (80-110) mg/dL Calcium (8.4-10.2) mg/dL Total Creatine Kinase 133 (55-170) U/L CK-MB (CK-2) 2.49 H (<2.37) ng/mL CK-MB (CK-2) Rel Index 1.9 (1.5-5.0) % Troponin I 0.019 (0.01-0.034) ng/mL NT-Pro-B Natriuret Pep 436 (<450) pg/mL SARS-CoV-2 (PCR) Negative (Negative) Influenza A (RT-PCR) Flu a negative (NEGATIVE) Influenza B (RT-PCR) Flu b negative (NEGATIVE) RSV (PCR) Negative (Negative) Urine Dip Bedside Urine Glucose Negative Bedside Urine Bilirubin - Negative Bedside Urine Ketone - Negative Urine Specific [place] 1.015 Bedside Urine Occult Blood - Negative Bedside Urine pH 6.0 Bedside Urine Protein - Negative Bedside Urine Urobilinogen - Negative Bedside Urine Nitrite - Negative Bedside Urine Leukocytes - Negative Esterase Point of care testing: Urine Dip Bedside Urine Glucose Negative Bedside Urine Bilirubin - Negative Bedside Urine Ketone - Negative Urine Specific [place] 1.015 Bedside Urine Occult Blood - Negative Bedside Urine pH 6.0 Bedside Urine Protein - Negative Bedside Urine Urobilinogen - Negative Bedside Urine Nitrite - Negative Bedside Urine Leukocytes - Negative Esterase MDM Narrative Medical decision making narrative: MDM CC: GLF with mild head injury on eliquis and increased low back pain Complicating co-morbidities: Age, anticoagulation Data collected from: patient, EMS, family (son and daughter in law) Medical records reviewed: Multiple prior ED visits Differential considered: Polytrauma secondary to fall, possibility of medical reason to cause the fall such as stroke, acute coronary syndrome, cardiac arrhyt hmia, infection. Exam documented above, pertinent findings include: low back pain on exam, no other significant findings Lab Test results independently reviewed as above. Pertinent findings: No s ignificant abnormalities such as signs of infection, anemia, electrolyte abnormality, kidney failure or troponin abnormality Imaging studies independently reviewed: No abnormal findings on head CT, cervical spine CT or lumbar spine CT Treatments: liter of saline, hydrocodone Re-evaluations: minimal improvement in pain Discussion: 87-year-old male with frequent falls, chronic back pain and some dementia lives alone and is at significant risk for injury as a consequence of fall. I have spent significant time at the bedside talking with family about risks and benefits of pain control and anticoagulation including falls which result in life-threatening bleeds or if he is taken off of anticoagulation due to his increased frequency of falls he becomes a stroke risk. We have attempted orthostatics and ambulation trial and patient require significant assistance and is not appropriate for discharge at this time. I will place a physical therapy and social work consultation Patient signed out to Dr. Sihdu for final disposition Nahum: Patient seen evaluated by myself this morning. Sleeping. Awaiting for PT and social work evaluation. Unsafe to go home by himself, frequent falls on anticoagulation. PT recommendations are met. Patient remained stable and cooperative in the emergency department. Eliquis is stop secondary to frequent falls. He is unsafe on Eliquis 03/11 ([place]) patient still pending placement, daily meds ordered, begins to , family wishes no more IM Haldol. Does well on Seroquel. Dr becerra: Received turned over. Viewed patient's history and physical exam. Performed my own independent exam. Had a discussion with patient's family who was at bedside this morning. They state that today he is much different compared to yesterday. They said that yesterday he was very agitated and not acting normal but today he seems much more somnolent. She was concerned by this change in mental status. A repeat head CT was ordered which was unremarkable. He did walk with physical therapy with a walker. Was seen again by social work. Had an appointment already scheduled with his primary doctor's office for this afternoon. After the discussion with social work it appears that there is not any hope for placement at least in the short time frame. There is not an indication for admission to hospital. Plan will be is to discharge patient have them follow-up with his primary doctor's office to discuss alternative living situations or potentially even home health. This discussion was had with the patient's son and [id number]. They were given return precautions. Any medication changes will be left to the primary doctor. <Geovanni Becerra, DO - Last Filed: 03/12/22 14:25> Lab Data Labs: Lab Results 03/09/22 03/09/22 03/09/22 Range/Units 22:46 22:46 22:46 WBC 8.4 (4.5-11.0) X10^3/uL RBC 4.56 (4.5-5.9) X10^6/uL Hgb 14.1 (13.5-17.5) g/dL Hct 42.1 (41-53) % MCV 92.4 (80-100) fL MCH 31.0 (26-34) PG MCHC 33.5 (30-36) % RDW 14.7 (11.6-14.8) % Plt Count 131 L (150-400) X10^3/uL Neut % (Auto) 62.6 (50-75) % Lymph % (Auto) 21.9 L (25-40) % [place] % (Auto) 11.3 (3-14) % Eos % (Auto) 3.4 (2-4) % Baso % (Auto) 0.8 (0-2) % Neut # (Auto) 5300 (6687-7318) /uL Lymph # (Auto) 1800 (8852-6039) /uL [place] # (Auto) 1000 H (0-900) /uL Eos # (Auto) 300 (0-450) /uL Baso # (Auto) 100 (0-100) /uL PT 17.0 H (10.1-12.7) SECONDS INR 1.5 H (0.9-1.3) Sodium 141 (137-145) mmol/L Potassium 4.2 (3.4-5.1) mmol/L Chloride 104 (98-107) mmol/L Carbon Dioxide 30 (22-32) mmol/L BUN 14 (9-20) mg/dL Creatinine 0.89 (0.66-1.25) mg/dL Estimated GFR > 60 (>60) mL/min BUN/Creatinine Ratio 15.7 (6-22) Glucose 100 (80-110) mg/dL Calcium 8.9 (8.4-10.2) mg/dL Total Creatine Kinase (55-170) U/L CK-MB (CK-2) (<2.37) ng/mL CK-MB (CK-2) Rel Index (1.5-5.0) % Troponin I (0.01-0.034) ng/mL NT-Pro-B Natriuret Pep (<450) pg/mL SARS-CoV-2 (PCR) (Negative) Influenza A (RT-PCR) (NEGATIVE) Influenza B (RT-PCR) (NEGATIVE) RSV (PCR) (Negative) 03/09/22 03/09/22 Range/Units 22:46 23:00 WBC (4.5-11.0) X10^3/uL RBC (4.5-5.9) X10^6/uL Hgb (13.5-17.5) g/dL Hct (41-53) % MCV (80-100) fL MCH (26-34) PG MCHC (30-36) % RDW (11.6-14.8) % Plt Count (150-400) X10^3/uL Neut % (Auto) (50-75) % Lymph % (Auto) (25-40) % [place] % (Auto) (3-14) % Eos % (Auto) (2-4) % Baso % (Auto) (0-2) % Neut # (Auto) (7114-1887) /uL Lymph # (Auto) (4995-2827) /uL [place] # (Auto) (0-900) /uL Eos # (Auto) (0-450) /uL Baso # (Auto) (0-100) /uL PT (10.1-12.7) SECONDS INR (0.9-1.3) Sodium (137-145) mmol/L Potassium (3.4-5.1) mmol/L Chloride (98-107) mmol/L Carbon Dioxide (22-32) mmol/L BUN (9-20) mg/dL Creatinine (0.66-1.25) mg/dL Estimated GFR (>60) mL/min BUN/Creatinine Ratio (6-22) Glucose (80-110) mg/dL Calcium (8.4-10.2) mg/dL Total Creatine Kinase 133 (55-170) U/L CK-MB (CK-2) 2.49 H (<2.37) ng/mL CK-MB (CK-2) Rel Index 1.9 (1.5-5.0) % Troponin I 0.019 (0.01-0.034) ng/mL NT-Pro-B Natriuret Pep 436 (<450) pg/mL SARS-CoV-2 (PCR) Negative (Negative) Influenza A (RT-PCR) Flu a negative (NEGATIVE) Influenza B (RT-PCR) Flu b negative (NEGATIVE) RSV (PCR) Negative (Negative) Urine Dip Bedside Urine Glucose Negative Bedside Urine Bilirubin - Negative Bedside Urine Ketone - Negative Urine Specific [place] 1.015 Bedside Urine Occult Blood - Negative Bedside Urine pH 6.0 Bedside Urine Protein - Negative Bedside Urine Urobilinogen - Negative Bedside Urine Nitrite - Negative Bedside Urine Leukocytes - Negative Esterase Point of care testing: Urine Dip Bedside Urine Glucose Negative Bedside Urine Bilirubin - Negative Bedside Urine Ketone - Negative Urine Specific [place] 1.015 Bedside Urine Occult Blood - Negative Bedside Urine pH 6.0 Bedside Urine Protein - Negative Bedside Urine Urobilinogen - Negative Bedside Urine Nitrite - Negative Bedside Urine Leukocytes - Negative Esterase MDM Narrative Medical decision making narrative: MDM CC: GLF with mild head injury on eliquis and increased low back pain Complicating co-morbidities: Age, anticoagulation Data collected from: patient, EMS, family (son and daughter in law) Medical records reviewed: Multiple prior ED visits Differential considered: Polytrauma secondary to fall, possibility of medical reason to cause the fall such as stroke, acute coronary syndrome, cardiac arrhythmia, infection. Exam documented above, pertinent findings include: low back pain on exam, no other significant findings Lab Test results independently reviewed as above. Pertinent findings: No significant abnormalities such as signs of infection, anemia, electrolyte abnormality, kidney failure or troponin abnormality Imaging studies independently reviewed: No abnormal findings on head CT, cervical spine CT or lumbar spine CT Treatments: liter of saline, hydrocodone Re-evaluations: minimal improvement in pain Discussion: 87-year-old male with frequent falls, chronic back pain and some dementia lives alone and is at significant risk for injury as a consequence of fall. I have spent significant time at the bedside talking with family about risks and benefits of pain control and anticoagulation including falls which result in life-threatening bleeds or if he is taken off of anticoagulation due to his increased frequency of falls he becomes a stroke risk. We have attempted orthostatics and ambulation trial and patient require significant assistance and is not appropriate for discharge at this time. I will place a physical therapy and social work consultation Patient signed out to Dr. Sidhu for final disposition Patient seen evaluated by myself this morning. Sleeping. Awaiting for PT and social work evaluation. Unsafe to go home by himself, frequent falls on anticoagulation. 03/11 ([place]) patient still pending placement, daily meds ordered, begins to , family wishes no more IM Haldol. Does well on Seroquel. Dr becerra: Received turned over. Viewed patient's history and physical exam. Performed my own independent exam. Had a discussion with patient's family who was at bedside this morning. They state that today he is much different compared to yesterday. They said that yesterday he was very agitated and not acting normal but today he seems much more somnolent. She was concerned by this change in mental status. A repeat head CT was ordered which was unremarkable. He did walk with physical therapy with a walker. Was seen again by social work. Had an appointment already scheduled with his primary doctor's office for this afternoon. After the discussion with social work it appears that there is not any hope for placement at least in the short time frame. There is not an indication for admission to hospital. Plan will be is to discharge patient have them follow-up with his primary doctor's office to discuss alternative living situations or potentially even home health. This discussion was had with the patient's son and [id number]. They were given return precautions. Any medication changes will be left to the primary doctor. Discharge Plan Departure Patient Disposition: Home Clinical Impression: Weakness Dementia Qualifiers: Dementia type: unspecified type Dementia severity: moderate Dementia behavioral or psychological symptom: with agitation Qualified Code(s): F03.B11 - Unspecified dementia, moderate, with agitation Instructions: How to Prevent Falls Activity Restrictions/Additional Instructions: I recommend that Bassam follow-up with his primary doctor's office at the appointment that is scheduled later today. This should be discussion about potential other living situations or help at home. Primary doctor's office can help with this. Return to the emergency department for any new symptoms. Prescriptions: No Action gabapentin 100 mg capsule 100 mg PO BID Qty: 60 1RF hydrocodone-acetaminophen 5-325 mg tablet 1 tab PO Q6H PRN (Reason: pain) Qty: 90 0RF Rx Instructions: Decreasing dosing amount due to progressive dementia metoprolol succinate 100 mg tablet extended release 24 hr 100 mg PO DAILY Qty: 90 0RF tamsulosin 0.4 mg capsule 0.4 mg PO DAILY Qty: 90 0RF digoxin 125 mcg (0.125 mg) tablet 125 mcg PO DAILY Qty: 90 3RF potassium chloride 8 mEq capsule, extended release 8 meq PO DAILY Qty: 90 1RF furosemide 40 mg tablet 20 mg PO DAILY Rx Instructions: patient has only been taking 1/2 tablet meloxicam 7.5 mg tablet 7.5 mg PO DAILY Qty: 30 5RF quetiapine [Seroquel] 25 mg tablet 12.5 - 25 mg PO BID PRN (Reason: aggitation) Qty: 60 2RF Referrals: Nathaniel Sarmiento DO [Primary Care Provider] - Stand Alone Forms: Patient Portal/API
--- NOTE | 2022-03-09 22:14 | DI.CT.S_ITS ---
PROCEDURE: CT LUMBAR SPINE WO CON INDICATIONS: fall with midline back pain TECHNIQUE: Noncontrast 3 mm thick sections acquired from the T12 level to the sacrum. Sagittal and coronal reformats were constructed. For radiation dose reduction, the following was used: automated exposure control. COMPARISON: [facility], CT, CT LUMBAR SPINE WO CON, 11/19/2021, 10:43. FINDINGS: Image quality: Excellent. Bones: There is unchanged bony alignment. Mild anterolisthesis measuring approximately 0.4 cm at L4-5 appears unchanged. There is minimal retrolisthesis also redemonstrated at L5-S1. No acute vertebral body compression fractures. No suspicious lytic or blastic bony lesions. No pars defects. Disc spaces: T12-L1: Mixo-sw-csgilpoi degenerative disc disease with mild joint space narrowing and mild posterior osteophytosis. No spinal canal or neural foraminal narrowing. L1-L2: Mild to moderate loss of disc height with mild posterior osteophytosis and a small broad-based disc bulge. There is mild spinal canal narrowing and mild right neural foraminal narrowing. L2-L3: Oluv-zt-qeqrkasu loss of disc height with vacuum disc phenomenon. There is a small posterior disc osteophyte complex. There is mild spinal canal narrowing with mild to moderate bilateral neural foraminal narrowing. L3-L4: Moderate loss of disc height with vacuum disc phenomenon and a small posterior disc osteophyte complex. There are postsurgical changes status post right partial decompression. There is moderate spinal canal narrowing with mild to moderate bilateral neural foraminal narrowing. L4-L5: Zicb-je-ypfjlehy loss of disc height with mild anterolisthesis and vacuum disc phenomenon. There is a small posterior disc bulge. There is moderate facet joint arthropathy and ligamentum flavum hypertrophy. The findings contribute to moderate spinal canal narrowing with mild to moderate bilateral neural foraminal narrowing. L5-S1: There is mild disc space narrowing with mild loss of disc height posteriorly. There is a small posterior disc osteophyte complex. Findings contribute to minimal spinal canal narrowing with mild bilateral neural foraminal narrowing. Soft tissues: No retroperitoneal masses or hematomas. Visualized aorta is normal in caliber. IMPRESSION: 1. No acute fracture identified. 2. Multilevel changes throughout the lumbar spine as described including moderate spinal canal narrowing at L3-L4 with mil [id number] bilateral neural foraminal narrowing. Dictated by: Miles Ayala M.D. on 03/09/2022 at 23:26 Approved by: Miles Ayala M.D. on 03/09/2022 at 23:36
--- NOTE | 2022-03-09 22:15 | DI.CT.S_ITS ---
PROCEDURE: CT CERVICAL SPINE WO CON INDICATIONS: fall with possible neck injury TECHNIQUE: Noncontrast 3 mm thick sections acquired from the skull base to the T4 level. Sagittal and coronal reformats were then constructed. For radiation dose reduction, the following was used: automated exposure control, adjustment of mA and/or kV according to patient size. COMPARISON: None. FINDINGS: Image quality: Excellent. Bones: No fractures or subluxation. There are postsurgical changes in the lower cervical spine with fusion of the C6-C7 vertebral bodies with posterior laminectomies at these levels. Multilevel degenerative disc disease, uncovertebral joint arthropathy, and facet joint arthropathy demonstrated throughout the cervical spine. Visualized superior ribs are intact. There is prominent periarticular soft tissue thickening along the sternoclavicular joints. Soft tissues: Prevertebral soft tissues are normal in thickness. No paravertebral hematomas. No apical pneumothoraces. IMPRESSION: 1. No acute fracture or subluxation. 2. Postsurgical changes at C6-C7 as described. 3. Bilateral periarticular soft tissue thickening at the sternoclavicular joints consistent with sequelae of an arthropathy. Recommend correlation clinically. Dictated by: Miles Ayala M.D. on 03/09/2022 at 23:22 Approved by: Miles Ayala M.D. on 03/09/2022 at 23:26
--- NOTE | 2022-03-09 22:15 | DI.CT.S_ITS ---
PROCEDURE: CT HEAD/BRAIN WO CON INDICATIONS: fall with head injury on thinners TECHNIQUE: Noncontrast 4.5 mm thick angled axial sections acquired from the foramen magnum to the vertex, with coronal and sagittal reformats. For radiation dose reduction, the following was used: automated exposure control, adjustment of mA and/or kV according to patient size. COMPARISON: [facility], CT, CT HEAD/BRAIN WO CON, 02/16/2022, 8:04. FINDINGS: Image quality: Excellent. CSF spaces: Basal cisterns are patent. No extra-axial fluid collections. There is mild cerebral volume loss, with resultant ventricular and sulcal prominence. Brain: No intracranial hemorrhage, mass, or mass effect. There are subcortical, periventricular and deep white matter hypodensities consistent with mild chronic small vessel ischemic changes. The monreal-white matter junction appears preserved. There is intracranial internal carotid artery atherosclerosis. Skull and face: Calvarium and visualized facial bones appear intact, without suspicious lesions. Sinuses: Visualized sinuses and mastoids are clear. IMPRESSION: 1. No acute intracranial abnormality. 2. Mild chronic white matter small vessel ischemic changes and cerebral volume loss. Dictated by: Miles Ayala M.D. on 03/09/2022 at 23:20 Approved by: Miles Ayala M.D. on 03/09/2022 at 23:22
[2022-03-09 22:18] VITALS: BP 201/96; PULSE 61; RESP 17; TEMP 36.6; O2SAT 98; BMI 26.6
[2022-03-09 22:56] LABS: Add Manual Diff / Slide Review NO; Basophils Absolute Auto 100 /uL (0-100); Basophils Percent Auto 0.8 % (0-2); Eosinophils Absolute Auto 300 /uL (0-450); Eosinophils Percent Auto 3.4 % (2-4); Hematocrit 42.1 % (41-53); Hemoglobin 14.1 g/dL (13.5-17.5); Lymphocytes Absolute Auto 1800 /uL (1100-4500); Lymphocytes Percent Auto 21.9 % (25-40); Mean Corpuscular HGB Conc 33.5 % (30-36); Mean Corpuscular Volume 92.4 fL (80-100); Monocytes Absolute Auto 1000 /uL (0-900); Monocytes Percent Auto 11.3 % (3-14); Neutrophils Absolute Auto 5300 /uL (1500-7000); Neutrophils Percent Auto 62.6 % (50-75); Platelet Count 131 X10^3/uL (150-400); Red Blood Cell Count 4.56 X10^6/uL (4.5-5.9); Red Cell Distribution Width 14.7 % (11.6-14.8); White Blood Cell Count 8.4 X10^3/uL (4.5-11.0)
[2022-03-09 23:04] LABS: INR 1.5 (0.9-1.3)
[2022-03-09 23:08] LABS: BUN Creatinine Ratio 15.7 (6-22); Blood Urea Nitrogen 14 mg/dL (9-20); Calcium 8.9 mg/dL (8.4-10.2); Carbon Dioxide 30 mmol/L (22-32); Chloride 104 mmol/L (98-107); Creatine Kinase 133 U/L (55-170); Estimated Glomerular Filt Rate > 60 mL/min (>60); Glucose 100 mg/dL (80-110); HEMOLYSIS 27 (0-50); Potassium 4.2 mmol/L (3.4-5.1); Sodium 141 mmol/L (137-145)
[2022-03-09] MEDS: SODIUM CHLORIDE 0.9% 500 ML 1000 ML IV (23:11)
[2022-03-09 23:17] LABS: NT-proBNP (BNP-Adult 18+) 436 pg/mL (<450)
[2022-03-09 23:39] LABS: CKMB % Relative Index 1.9 % (1.5-5.0); Creatine Kinase MB 2.49 ng/mL (<2.37); Troponin I 0.019 ng/mL (0.01-0.034)
[2022-03-10] VITALS (29 sets, daily range): BP systolic 138–212; BP diastolic 63–104; PULSE 49–78; RESP 14–22; TEMP 37.5; O2SAT 93–97
[2022-03-10 00:02] LABS: Influenza A - CEPHEID Flu A NEGATIVE (NEGATIVE); Influenza B - CEPHEID Flu B NEGATIVE (NEGATIVE); Respiratory Syncytial Virus Negative (Negative)
[2022-03-10 00:25] LABS: COVID-19 CEPHEID 4-PLEX PCR Negative (Negative)
--- NOTE | 2022-03-10 00:41 | PC.NURSE ---
Road test requested by provider. Pt able to stand with 2 person assist but ambulated only 4 steps. C/O of back pain secondary to falls at home.
[2022-03-10] MEDS: HYDROCODONE/ACET 5/325 TABLET 1 TAB PO ×4 (00:56→23:08)
--- NOTE | 2022-03-10 09:05 | PC.NURSE ---
PT at bs to consult.
--- NOTE | 2022-03-10 09:34 | PT.IIE ---
Surgical History (Last Reviewed 03/10/22 @ 00:38 by Romain Novak DO) Anesthesia History of cataract removal with insertion of prosthetic lens History of discectomy (~2001) History of fusion of cervical spine (~2001) History of lumbar laminectomy (~2001) Medical History (Last Reviewed 03/10/22 @ 00:38 by Romain Novak DO) Asthma Atrial fibrillation BPH (benign prostatic hyperplasia) Cervical spine disease CHF (congestive heart failure) Dementia Disease of spine Facial basal cell cancer Hearing loss Hepatitis Hyperlipidemia Jaundice Lumbar stenosis with neurogenic claudication Osteoarthritis Shoulder pain Vision disorder Physical Therapy Inpatient Evaluation/Re-Eval M1 PT/OT-IP Prior Functional Status Start: 03/10/22 08:20 Freq: Status: Active Protocol: Document 03/10/22 09:34 AW (Rec: 03/10/22 10:39 AW [id number]) Medical Review Prior Functional Status Medical History Reviewed Yes Communication Pt is [place] and has dementia. He is able to make his needs known verbally. Mobility and Gait Pt has chronic low back pain which limits his mobility. He ambulates facility distances with 4WW. He can walk to the dining ann from his apartment . He states he does not fall regularly but did fall twice yesterday which is why he is in the ED. Activities of Daily Living and IADL's Independent. Pt has no assist with ADL's. [facility]-Way home provides two meals per day. Son and daughter in law handle grocery shopping. He has assist from his family to set up his meds but they question whether pt takes them consistently. Social History Household Members none Living Arrangements Half-Way Facility Number of Stairs To Enter/Railing? No stairs Home Environment High Toilet,Walk in Shower Home Equipment Four Wheel Walker,Grab Bars Near Toilet,Grab Bars In Shower Additional Social History Comment Pt has lived at [facility] since May 2021. His girlfriend also lives at [facility]. His son and daughter in law live in the area and are in regular contact with the pt. M2 PT-IP Current Condition Start: 03/10/22 10:40 Freq: Status: Active Protocol: Document 03/10/22 09:34 AW (Rec: 03/10/22 10:44 AW [id number]) Physical Therapy Current Condition Current Condition Evaluation Date 03/10/22 Treatment Diagnosis GLF; confusion; back and left shoulder pain; impaired mobility and gait Onset Date 03/09/22 M3 PT-IP Subjective Start: 03/10/22 10:40 Freq: Status: Active Protocol: Document 03/10/22 09:34 AW (Rec: 03/10/22 10:44 AW [id number]) Subjective Physical Therapy Visit Type Type Initial Evaluation Visit Start Time 08:59 Visit Stop Time 09:34 Total Visit Minutes 35 Notes This ED visit is pt's 6th since May 2021. PT was consulted to determine level of assist required and to provide recommendation for discharge disposition. Physical Therapy Visit Comments Patient Comments Pt is hesitant to move due to pain but ultimately willing to participate with PT. Therapy Pain Assessment Pain When Pain Assessed During Mobility Location left shoulder Scale Used not quantified but worse than low back per pt Description Acute,Sharp,Spasm,With Movement Pain Behaviors Calling Out,Facial Grimacing, Wincing Pain Management Techniques Distraction,Modification of Treatment,Re-positioning lower back Scale Used not quantified M4 PT-IP Mobility and Gait Start: 03/10/22 10:40 Freq: Status: Active Protocol: Document 03/10/22 09:34 AW (Rec: 03/10/22 11:15 AW [id number]) PT-Bed Mobility Assessment Supine to Sit Supine to Sit Moderate Assistance,1 Person Assistance,Bedrails Sit to Supine Sit to Supine Moderate Assistance,1 Person Assistance PT-Transfer Assessment Sit to and From Stand Sit to and from Stand Moderate Assistance,1 Person Assistance,Use of Upper Extremities Equipment Transfer Assistive Device Gait Belt,Front Wheeled Walker Orthotic/Prosthetic Devices or Brace: No Transfers Transfer Destination Bed Transfer Technique amb with FWW Transfer Ability Level of Assist Moderate Assistance,1 Person Assistance,Use of Upper Extremities Comments Mobility Comments Pt was lying on the gurney as PT arrived. BP was 181/77 HR 55 SpO2 96% RA. He complained of significant left shoulder pain which he stated was worse than his chronic low back pain. He needed mod A to sit up EOB and continued to complain of left shoulder pain . He was able to stand mod A and he placed both hands on FWW. With mod A, he walked 20 feet in the room using FWW. He returned to sitting EOB and needed mod A for return to supine and repositioning. After activity, BP was 188/88 HR 60 SpO2 98% RA. Gait Assessment Gait Gait Assistance Required: Moderate Assistance,1 Person Assist Distance (Feet) 20 Able to Maintain Weight Bearing Status No During Gait Assistive Devices Assistive Device Gait Belt,Front Wheeled Walker Orthotic/Prosthetic Devices or Brace: No Gait Deviations General Gait Pattern Antalgic,Ataxic,Decreased Feet Clearance,Flexed Trunk Factors Limiting Gait Function Factors Limiting Gait Function Decreased Strength,Difficulty Following Directions,Pain,Poor Balance,Poor Safety Awareness Comments Gait Comments Gait was unsteady and pt complained of left shoulder pain which appeared to limit his use of LUE with the walker . Stair Climbing Assessment Comments Stair Climbing Comments Not assessed. No stairs at assisted facility. PT-Balance Assessment Sitting Balance and Reactions Static Sitting Balance Ability Fair Dynamic Sitting Balance Ability Fair Standing Balance and Reactions Static Standing Balance Ability Poor Dynamic Standing Balance Ability Poor Device Used FWW Comments Other Balance Tests/Deviations/Treatment Left shoulder pain affecting : balance and safe use of FWW. M5 PT-IP Objective Assessments Start: 03/10/22 10:40 Freq: Status: Active Protocol: Document 03/10/22 09:34 AW (Rec: 03/10/22 11:15 AW [id number]) Orientation Orientation/Cognition Level of Alertness Confusional State Orientation Name,Place,Situation Language Function Ability Hard of Hearing Safety Awareness Decreased Safety Awareness Memory Description Short Term Impaired Gross Range of Motion Upper Extremity ROM Assessment Left Impaired Impairments AROM and PROM left shoulder reproduce pain. Pt has specific tenderness along lateral 1/3 of left clavicle. Reported findings to RN and ED provider. Lower Extremity ROM Assessment Within Functional Limits Strength Upper Extremity Strength Assessment Left Impaired Lower Extremity Strength Hip 4/5 Knee 4+/5 ext; 4/5 flex Ankle 4+/5 DF Sensation Assessment Sensation Gross Sensation WNL M6 PT-IP Treatment Start: 03/10/22 10:40 Freq: Status: Active Protocol: Document 03/10/22 09:34 AW (Rec: 03/10/22 11:15 AW [id number]) Physical Therapy Treatment Education Education Provided Safety M7 PT-IP Assessment and Plan Start: 03/10/22 10:40 Freq: Status: Active Protocol: Document 03/10/22 09:34 AW (Rec: 03/10/22 11:24 AW [id number]) PT Summary Assessment and Plan Potential Rehabilitation Potential Good Status of Condition at Evaluation Evolving Summary Impairments Pain,ROM,Strength,Balance, Cognition,Bed Mobility, Transfers,Gait,Activity Tolerance Assessment Summary Niranjan is an 87 yo man seen for PT evaluation in the ED for mobility assessment. PLOF: Pt has dementia and lives independently at [facility]. He has chronic back pain but is typically modified independent with 4WW for facility distances and manages ADL's without assist. His son and daughter in law are in regular contact and provide some IADL assist such as with grocery shopping and medication setup. Pt is not supervised with medications and there is a great deal of concern that he is not taking his medications consistently. CLOF: Pt fell twice yesterday and presents with increased confusion on assessment today. He required mod assist with bed mobility, sit to stand, and short distance gait with FWW. His confusion is affecting his safety awareness and increasing his risk of falls. He also complains of left shoulder pain today. RN and ED provider were informed of left shoulder complaint. In the context of multiple ED visits over the past year, increasing confusion, and impaired mobility, pt is not safe for independent living at this time. He may benefit from SNF rehab to improve his strength and mobility but will eventually need increased daily assist such as at assisted living. Goals Bed Mobility Goal Standby Assistance Transfer Goal Standby Assistance,Four Wheeled Walker Gait Goal Standby Assistance,Four Wheel Walker Gait Distance 150 Days to Meet Goals 10 Frequency of Treatment Frequency Of Treatment Once a Day Treatment Plan Physical Therapy Treatment Plan Bed Mobility Training,Transfer Training,Gait Training, Therapeutic Exercise,Balance Retraining,Discharge Planning, Hot or Cold Pack,Neuromuscular Re-ed,Coordination Retraining ,Manual Therapy Other Recommendations and Next Treatment check for left shoulder x-ray, Focus any precautions; transfers and gait with FWW/4WW as tolerated; ther ex for BLE strength Precautions Other Precautions falls Recommendations To Nursing Amount of Assist Needed 1 Person Assist Discharge Recommendations PT Discharge Recommendations Home with 22/09 Assist Available,Home Health,SNF Rehab,Home vs SNF Transportation Needs at Discharge Private Vehicle
--- NOTE | 2022-03-10 12:22 | DI.RAD.S_ITS ---
PROCEDURE: XR SHOULDER LT MIN 2V INDICATIONS: pain TECHNIQUE: 2 views of the shoulder were acquired. may indicate COMPARISON: [facility], CT, CT CERVICAL SPINE WO CON, 03/09/2022, 22:27. FINDINGS: Bones: Subtle cortical irregularity involving distal clavicular shaft is seen. No other fracture or dislocation. Moderate acromioclavicular joint and glenohumeral joint osteoarthritic changes are seen. No suspicious bony lesions. Visualized ribs appear intact. Soft tissues: No suspicious soft tissue calcifications. IMPRESSION: Subtle irregularity involving distal clavicular shaft which may represent age indeterminate nondisplaced distal clavicular shaft fracture. Moderate left shoulder joint osteoarthritis. No other fracture or dislocation. Dictated by: Sumit Jones M.D. on 03/10/2022 at 13:04 Approved by: Sumit Jones M.D. on 03/10/2022 at 13:06
--- NOTE | 2022-03-10 12:29 | CM.DANOTE ---
Pt is 87 year old male, nonsmoker with history of atrial fibrillation on anticoagulation, CHF, hyperlipidemia, dementia and lumbar stenosis presents by EMS for evaluation of a ground level fall with head injury while on anticoagulation. Pt has [employer] Medicare and his PCP is Nathaniel Sarmiento. SW consulted to assist with safe discharge plan. SW discusses options with pt and daughter, Re and notes physical therapy's recommendation for SNF level of care. SW answers pt questions about SNF and he is agreeable to SW starting search. SW calls Agnes at [email or web address] and she reports that she will review referral right now. TATE Boateng Discharge Planning/Care Management CM Discharge Assessment Start: 03/10/22 12:25 Freq: Status: Active Protocol: Document 03/10/22 12:26 TM (Rec: 03/10/22 12:29 TM [id number]) Discharge Planning Assessment Assigned Slat Basket Maker Sarah Beth London DPOA/Assigned Designee Name Salty Cox/Son, DPOA Advance Directives? Yes: POLST Advance Directives on File Yes History Provided By Patient,Family Member Has Patient been admitted in last 30 No days? Prior Living Arrangements Care Home Facility Comment Pt lives in independent intermediate at [facility]. Household Members none Type of transporation used prior to Relies on Others admit Comment Pt has his own vehicle but has not been driving in last two months. Facility Name Admitted From: [facility] Willing to Return to Facility? Yes Independent with ADL's Yes Is patient alert and oriented? No Needs Assistance With Bathing,Meal Prep,Toileting, Managing Medications,Home Chores / Shopping Comment At baseline, pt is independent with transfers, toileting, grooming, chores. Caregiver for Another No DME Already Rented / Owned FWW / Walker Patient/Family Preference Snf Facility Comment PT evaluated pt and believe he needs SNF level of care. Barriers to Discharge No Discharge Plan Snf Facility Transportation Arrangement ambulance Referrals Initiated Snf If patient plan is SNF: Has PASSR been Yes completed? Medicare Choice List Provided Yes Has Agency SNF been contacted Yes Whiteboard Updated in Patient Room with Yes name and ext. # of Slat Basket Maker Please Provide Date Initial DC 03/10/22 Assessment Was Performed
--- NOTE | 2022-03-10 13:17 | CM.SWNOTE ---
ED SW Note SW following up on SNF search. EDUARDO previously talked to Agnes at [facility] who is reviewing referral now. July reports that they are out of network so there is a chance that pt would be responsible for a higher portion of the treatment but a lot of insurance companies are still using covid waivers to avoid out of network billing. SW called [facility] and they reported that they are out of network and do not typically get waivers to avoid out of network billing. EDUARDO called [facility] and left a voicemail requesting a call back. EDUARDO called [facility] and they are in network with pt's insurance and they do have bed availability. SW faxed referral to . EDUARDO called [facility] and they are in network with pt's insurance but will not have beds until Thursday vs . Plan: EDUARDO will follow up with [facility] and [facility] regarding referrals. TATE Boateng
--- NOTE | 2022-03-10 16:29 | PC.NURSE ---
Medication reconciliation completed. Eliquis discontinued by Dr. Sidhu.
[2022-03-10] MEDS: DIGOXIN 0.125 MG TABLET PO (16:52)
[2022-03-10] MEDS: METOPROLOL ER 50 MG TABLET 100 MG PO (16:53)
[2022-03-10] MEDS: TAMSULOSIN 0.4 MG CAPSULE PO (16:53)
[2022-03-10] MEDS: FUROSEMIDE 20 MG TABLET PO (16:53)
[2022-03-10] MEDS: GABAPENTIN 100 MG CAPSULE PO (21:30)
[2022-03-10] MEDS: HALOPERIDOL 5 MG/ML VIAL 2 MG IV (22:20)
[2022-03-11] MEDS: HALOPERIDOL 5 MG/ML VIAL 2 MG IM (01:35)
--- NOTE | 2022-03-11 04:34 | PC.NURSE ---
PEER COUNSELOR note: patient trying to get out of bed for the last 30 minutes. Needs someone to redirect him. Bed alarm on sensitive setting.
--- NOTE | 2022-03-11 06:43 | PC.NURSE ---
PATIENT COORDINATOR note: Around 0400 while other staff was handling other patients, Niranjan was attempting to get out of bed. He was refusing to stay in bed. Attempted to play music, a bed time story, even just talking to him. Explained to the patient that he was in the emergency room, that he needed to stay in bed for safety, patient began to kick staff (me) multiple times and push staff away while attempting to get out of bed. I told him Hey, I don't like that, we don't hurt staff. Explained to patient that we don't want him to fall, so he can't get out of bed. Patient is a 1-2 person to get up to void, which he had been doing. Patient wanted to get up to see what's happening outside. Patient was verbally not nice to me, and I told him that wasn't appropriate. Turned on bed alarm, opened curtain, and got patient a warm blanket, while I helped other staff. Patient pulled off cords from vital signs machine saying I'm going to get out of here. When I was able to get cords out of his hands I brought them to the nurse's station. Alerted RN. Patient is currently resting.
[2022-03-11 10:00] VITALS: BP 121/72; PULSE 76; RESP 23; O2SAT 94
[2022-03-11] MEDS: GABAPENTIN 100 MG CAPSULE PO (10:57)
[2022-03-11] MEDS: METOPROLOL ER 50 MG TABLET 100 MG PO (10:57)
[2022-03-11] MEDS: FUROSEMIDE 20 MG TABLET PO (10:57)
[2022-03-11] MEDS: TAMSULOSIN 0.4 MG CAPSULE PO (10:58)
[2022-03-11] MEDS: DIGOXIN 0.125 MG TABLET PO (10:59)
--- NOTE | 2022-03-11 11:46 | PT.IPTN ---
Physical Therapy Treatment Note M2 PT-IP Current Condition Start: 03/10/22 10:40 Freq: Status: Active Protocol: Document 03/10/22 09:34 AW (Rec: 03/10/22 10:44 AW [id number]) Physical Therapy Current Condition Current Condition Evaluation Date 03/10/22 Treatment Diagnosis GLF; confusion; back and left shoulder pain; impaired mobility and gait Onset Date 03/09/22 M3 PT-IP Subjective Start: 03/10/22 10:40 Freq: Status: Active Protocol: Document 03/11/22 11:26 LJ (Rec: 03/11/22 11:46 LJ [id number]) Subjective Physical Therapy Visit Type Type Treatment Note Visit Start Time 10:59 Visit Stop Time 11:26 Total Visit Minutes 27 Notes Pts dtr in law in room. MILL TENDER WARM UP states pt had walked with FWW from room 8 ED to toilet and return to room at ~930 Number of HUMAN FACTORS ENGINEER Visits 1 Physical Therapy Visit Comments Patient Comments Pt is hesitant to move due to pain but ultimately willing to participate with PT. Therapy Pain Assessment Pain When Pain Assessed During Mobility Location left shoulder Scale Used not quantified but worse than low back per pt Description Acute,Sharp,Spasm,With Movement Pain Behaviors Calling Out,Facial Grimacing, Wincing Pain Management Techniques Distraction,Modification of Treatment,Re-positioning lower back Scale Used not quantified M4 PT-IP Mobility and Gait Start: 03/10/22 10:40 Freq: Status: Active Protocol: Document 03/11/22 11:26 LJ (Rec: 03/11/22 11:46 LJ [id number]) PT-Bed Mobility Assessment Supine to Sit Supine to Sit Maximum Assistance,2 Person Assistance,Head of Bed Elevated Sit to Supine Sit to Supine Maximum Assistance,2 Person Assistance,Head of Bed Elevated PT-Transfer Assessment Sit to and From Stand Sit to and from Stand Maximum Assistance,2 Person Assistance,Use of Upper Extremities Equipment Transfer Assistive Device Gait Belt,Front Wheeled Walker Orthotic/Prosthetic Devices or Brace: No Transfers Transfer Destination Bed Transfer Ability Level of Assist Maximum Assistance,2 Person Assistance,Use of Upper Extremities Comments Mobility Comments Pt lying in bed. Difficult to rouse. Dtr in law in room assisting pt. Pt Pt requiring max cues and MaxA x2 supine to sit oon side of bed. Once seated on side of bed pt reqired MaxA x1-2 to stay upright. Pt sat on EOB while nursing and dtr gave pt medications. Pt attempted sit< >stand x4 requiring maxA x2 and max cues. Unable to come to complete standing without heavy leaning on side of bed. Pt stood for max of 15 sec at a time. Pt instructed to take steps to head of bed for better positioning however he was unable to lift feet to do so. MaxA x2 for positioning in bed. Pt made comfortable and left with dtr in room. Gait Assessment Comments Gait Comments unable at this time PT-Balance Assessment Sitting Balance and Reactions Static Sitting Balance Ability Poor Dynamic Sitting Balance Ability Poor Standing Balance and Reactions Static Standing Balance Ability Poor Dynamic Standing Balance Ability Poor Device Used FWW M5 PT-IP Objective Assessments Start: 03/10/22 10:40 Freq: Status: Active Protocol: Document 03/10/22 09:34 AW (Rec: 03/10/22 11:15 AW [id number]) Orientation Orientation/Cognition Level of Alertness Confusional State Orientation Name,Place,Situation Language Function Ability Hard of Hearing Safety Awareness Decreased Safety Awareness Memory Description Short Term Impaired Gross Range of Motion Upper Extremity ROM Assessment Left Impaired Impairments AROM and PROM left shoulder reproduce pain. Pt has specific tenderness along lateral 1/3 of left clavicle. Reported findings to RN and ED provider. Lower Extremity ROM Assessment Within Functional Limits Strength Upper Extremity Strength Assessment Left Impaired Lower Extremity Strength Hip 4/5 Knee 4+/5 ext; 4/5 flex Ankle 4+/5 DF Sensation Assessment Sensation Gross Sensation WNL M6 PT-IP Treatment Start: 03/10/22 10:40 Freq: Status: Active Protocol: Document 03/11/22 11:26 LJ (Rec: 03/11/22 11:46 LJ [id number]) Physical Therapy Treatment Education Education Provided Safety M7 PT-IP Assessment and Plan Start: 03/10/22 10:40 Freq: Status: Active Protocol: Document 03/11/22 11:26 LJ (Rec: 03/11/22 11:46 LJ [id number]) PT Summary Assessment and Plan Potential Rehabilitation Potential Good Status of Condition at Evaluation Evolving Summary Impairments Pain,ROM,Strength,Balance, Cognition,Bed Mobility, Transfers,Gait,Activity Tolerance Assessment Summary Nursing stated pt had walked to the toilet earlier in the morning with FWW. At this time pt unable to perform bed mobility without MaxA x2 and max cueing. Pt moaning and grimaing with pain stating shoulder more painful than back. Pt needed cueing for pushing off bed, leaning forward in sitting and standing, straightening knees in standing, and keeping eyes open. Nursing states he has not had pain med since last night but had not requested it . Dtr not wanting pt to be medicated any more. At this point, pt will require SNF to improve strength and functional mobility to return to [place]. Dtr states she and both work and cannot assist pt. Goals Bed Mobility Goal Standby Assistance Transfer Goal Standby Assistance,Four Wheeled Walker Gait Goal Standby Assistance,Four Wheel Walker Gait Distance 150 Days to Meet Goals 10 Frequency of Treatment Frequency Of Treatment Once a Day Treatment Plan Physical Therapy Treatment Plan Bed Mobility Training,Transfer Training,Gait Training, Therapeutic Exercise,Balance Retraining,Discharge Planning, Hot or Cold Pack,Neuromuscular Re-ed,Coordination Retraining ,Manual Therapy Other Recommendations and Next Treatment check for left shoulder x-ray, Focus any precautions; transfers and gait with FWW/4WW as tolerated; ther ex for BLE strength Precautions Other Precautions falls Recommendations To Nursing Amount of Assist Needed 1 Person Assist Discharge Recommendations PT Discharge Recommendations Home with / Assist Available,SNF Rehab Transportation Needs at Discharge Private Vehicle
[2022-03-11 11:47] VITALS: BP 124/78; BP 124/87; PULSE 85; RESP 18; O2SAT 94
[2022-03-11 15:50] VITALS: BP 110/55; PULSE 82; RESP 18; O2SAT 94
--- NOTE | 2022-03-11 16:06 | PC.NURSE ---
Helped pt into the wheelchair with Edyta DE PAZ, gait belt applied. Patient's daughter in law and son asked to wheel patient around the unit and the lobby. Checked with provider Juan Carlos and charge nurse Lizbet, both said it was OK for family to do so.
--- NOTE | 2022-03-11 16:53 | PC.NURSE ---
16:20 patient came back from being wheeled around in the hallway with patient's son. Dinner tray set up, patient eating in wheelchair with family assistance.
--- NOTE | 2022-03-11 19:00 | PC.NURSE ---
Patient ate 0% of his dinner. Family at bedside attempted to feed patient 5+ times. Patient refused any oral intake, fluids or food.
[2022-03-11 19:48] VITALS: PULSE 77; RESP 18; O2SAT 96
--- NOTE | 2022-03-11 19:49 | PC.NURSE ---
19:48 Patient refused to have his blood pressure taken. Patient removed BP cuff and refused to have this nurse reapply.
--- NOTE | 2022-03-11 19:53 | CM.SWNOTE ---
EDUARDO ED Note Pt is 87 year old male, nonsmoker with history of atrial fibrillation on anticoagulation, CHF, hyperlipidemia, dementia and lumbar stenosis presents by EMS for evaluation of a ground level fall with head injury while on anticoagulation. Pt has [employer] Medicare and his PCP is Nathaniel Sarmiento. EDUARDO consulted to assist with safe discharge plan. SW continuing SNF search today. EDUARDO called [facility] several times and eventually received update that they cannot accept pt because they believe his needs exceed their capacity. EDUARDO called [facility] and July reports that pt has HMO plan, which does not offer out of network benefits. Therefore, they are unable to accept pt unless he is private pay. EDUARDO called [facility] and left voicemail requesting call back regarding bed availability. EDUARDO faxed referral packet to admission coordinator for their review. EDUARDO called [facility] in [place] and left voicemail requesting a call back regarding bed availability. EDUARDO found [facility] listed on [employer] website as an in network facility. EDUARDO faxed referral packet to admissions for their review. EDUARDO met with pt's son and DIL and provided senior resource guide for their review, as they requested additional resources such as adult family homes. EDUARDO also provided patient with information for [facility] to get help with ocean transportation intermediary placement. Plan: EDUARDO will continue to reach out to SNFs regarding placement. TATE Boateng
[2022-03-11] MEDS: QUETIAPINE 25 MG TABLET PO (23:03)
--- NOTE | 2022-03-11 23:05 | PC.NURSE ---
Patient refusing this nurse to take his vital signs. Grabs the BP cuff and flings it off. Family at bedside attempting to calm the patient down, patient still not cooperating. This nurse attempted to give the patient ordered medication seroquel, patient spit out the medication. This nurse removed another dose and family (daughter-in law and son) asked if they could attempt to give the medication as they are familiar faces. Patient was agreeable to take the medication from the family members, however, patient refused the scheduled gabapentin. Patient also urinated on floor with family in the room. Patient cleaned up and now resting in bed with eyes closed, breathing even and unlabored.
--- NOTE | 2022-03-11 23:27 | PC.NURSE ---
Patient resting in bed, eyes closed, breathing even and unlabored. Patients' family members have left home, will call later to check on patient. Bed alarm on.
[2022-03-12 06:00] VITALS: BP 130/60; PULSE 68; RESP 18; O2SAT 97
[2022-03-12 09:40] VITALS: BP 101/54; PULSE 52
[2022-03-12] MEDS: DIGOXIN 0.125 MG TABLET PO (09:40)
[2022-03-12 09:43] VITALS: BP 101/54; PULSE 52
[2022-03-12] MEDS: FUROSEMIDE 20 MG TABLET PO (09:43)
[2022-03-12] MEDS: METOPROLOL ER 50 MG TABLET 100 MG PO (09:43)
[2022-03-12] MEDS: TAMSULOSIN 0.4 MG CAPSULE PO (09:43)
[2022-03-12] MEDS: GABAPENTIN 100 MG CAPSULE PO (09:44)
--- NOTE | 2022-03-12 10:54 | DI.CT.S_ITS ---
PROCEDURE: CT HEAD/BRAIN WO CON INDICATIONS: Fall a couple days ago, change in mental status this morning TECHNIQUE: Noncontrast 4.5 mm thick angled axial sections acquired from the foramen magnum to the vertex, with coronal and sagittal reformats. For radiation dose reduction, the following was used: automated exposure control, adjustment of mA and/or kV according to patient size. COMPARISON: [facility], CT, CT HEAD/BRAIN WO CON, 03/09/2022, 22:27. FINDINGS: Image quality: Excellent. CSF spaces: Basal cisterns are patent. No extra-axial fluid collections. The ventricles are symmetric in size and shape. Brain: No intracranial bleeds or masses. There is cerebral volume loss for age, with resultant ventricular and sulcal prominence. There are periventricular and deep white matter chronic small vessel ischemic changes. There is intracranial internal carotid artery atherosclerosis. Skull and face: Calvarium and visualized facial bones appear intact, without suspicious lesions. Sinuses: Visualized sinuses and mastoids are clear. IMPRESSION: 1. No acute intracranial process. 2. Moderate atrophy and chronic microvascular ischemic changes. Dictated by: Pauline Garcia M.D. on 03/12/2022 at 11:41 Approved by: Pauline Garcia M.D. on 03/12/2022 at 11:42
--- NOTE | 2022-03-12 12:38 | PT.IPTN ---
Physical Therapy Treatment Note M2 PT-IP Current Condition Start: 03/10/22 10:40 Freq: Status: Active Protocol: Document 03/10/22 09:34 AW (Rec: 03/10/22 10:44 AW [id number]) Physical Therapy Current Condition Current Condition Evaluation Date 03/10/22 Treatment Diagnosis GLF; confusion; back and left shoulder pain; impaired mobility and gait Onset Date 03/09/22 M3 PT-IP Subjective Start: 03/10/22 10:40 Freq: Status: Active Protocol: Document 03/12/22 12:09 LJ (Rec: 03/12/22 12:38 LJ [id number]) Subjective Physical Therapy Visit Type Type Treatment Note Visit Start Time 11:22 Visit Stop Time 11:56 Total Visit Minutes 34 Notes Family and GF in room with pt. Physical Therapy Visit Comments Patient Comments Pt willing to get up and ambulate Therapy Pain Assessment Pain When Pain Assessed During Mobility Location left shoulder Scale Used not quantified Pain Behaviors Calling Out Pain Management Techniques Distraction,Modification of Treatment,Re-positioning lower back Scale Used not quantified M4 PT-IP Mobility and Gait Start: 03/10/22 10:40 Freq: Status: Active Protocol: Document 03/12/22 12:09 LJ (Rec: 03/12/22 12:38 LJ [id number]) PT-Bed Mobility Assessment Rolling Type of Rolling Bilateral Supine to Sit Supine to Sit Moderate Assistance,2 Person Assistance,Head of Bed Elevated Sit to Supine Sit to Supine Minimal Assistance,2 Person Assistance,Head of Bed Elevated PT-Transfer Assessment Sit to and From Stand Sit to and from Stand Minimal Assistance,1 Person Assistance,Use of Upper Extremities Equipment Transfer Assistive Device Gait Belt,Front Wheeled Walker Orthotic/Prosthetic Devices or Brace: No Transfers Transfer Destination Bed,Toilet Transfer Technique amb with FWW Transfer Ability Level of Assist Contact Guard Assistance, Minimal Assistance,1 Person Assistance,Use of Upper Extremities Comments Mobility Comments Pt lying in bed. More alert than yestereday. Pt sttes willing to get up and attempt ambulation with FWW. Pt performed several LE bed exercises to test strength then sat up in bed ModA x2 with dtr assisting pt from behind. Pt requiring Max cueing for sequencing sidelying to sitting on SOB. Pt sat SBA with use of UEs on side of bed ~1 min then attempted to stand. Pt instructed to wait for therapist to don gait belt. Pt then stood Zoila x1 with cues and braced FWW. Pt then ambulated with WC follow in hallway around loop of ER then requested to use toilet. Pt used toilet to void standing while doing so and holding onto grab bar. Pt then walked to sink using FWW and washed hands without leaning against sink. Pt then ambulated with cues to slow down and direction instructions back to room. He sat on side of bed lowering himself down slowly with control. Pt stated he wanted to sit up for a while but decided to lay down. Completed lowering trunk with Zoila x2 into sidelying position. Zoila x1 to elevate LEs onto bed. Pt able to position self in bed. Gait Assessment Gait Gait Assistance Required: Contact Guard Assist,Minimum Assistance,1 Person Assist Distance (Feet) 150 Able to Maintain Weight Bearing Status No During Gait Assistive Devices Assistive Device Gait Belt,Front Wheeled Walker Orthotic/Prosthetic Devices or Brace: No Gait Deviations General Gait Pattern Antalgic,Ataxic,Decreased Feet Clearance,Flexed Trunk Factors Limiting Gait Function Factors Limiting Gait Function Decreased Strength,Difficulty Following Directions,Pain,Poor Balance,Poor Safety Awareness Comments Gait Comments Pt is impulsive with initiating and directioning gait. Requiring cues for posture, FWW management, and safe navigation around obstacles. Son following with WC but pt did not c/o fatigue but stated his knee hurt. Stair Climbing Assessment Comments Stair Climbing Comments Not assessed. No stairs at assisted facility. PT-Balance Assessment Sitting Balance and Reactions Static Sitting Balance Ability Fair Dynamic Sitting Balance Ability Fair Standing Balance and Reactions Static Standing Balance Ability Fair Dynamic Standing Balance Ability Fair Device Used FWW M5 PT-IP Objective Assessments Start: 03/10/22 10:40 Freq: Status: Active Protocol: Document 03/10/22 09:34 AW (Rec: 03/10/22 11:15 AW [id number]) Orientation Orientation/Cognition Level of Alertness Confusional State Orientation Name,Place,Situation Language Function Ability Hard of Hearing Safety Awareness Decreased Safety Awareness Memory Description Short Term Impaired Gross Range of Motion Upper Extremity ROM Assessment Left Impaired Impairments AROM and PROM left shoulder reproduce pain. Pt has specific tenderness along lateral 1/3 of left clavicle. Reported findings to RN and ED provider. Lower Extremity ROM Assessment Within Functional Limits Strength Upper Extremity Strength Assessment Left Impaired Lower Extremity Strength Hip 4/5 Knee 4+/5 ext; 4/5 flex Ankle 4+/5 DF Sensation Assessment Sensation Gross Sensation WNL M6 PT-IP Treatment Start: 03/10/22 10:40 Freq: Status: Active Protocol: Document 03/12/22 12:09 (Rec: 03/12/22 12:38 [id number]) Physical Therapy Treatment Exercises Exercises Ankle Pumps,Heel Slides, Straight Leg Raises Education Education Provided Safety M7 PT-IP Assessment and Plan Start: 03/10/22 10:40 Freq: Status: Active Protocol: Document 03/12/22 12:09 (Rec: 03/12/22 12:38 [id number]) PT Summary Assessment and Plan Potential Rehabilitation Potential Good Status of Condition at Evaluation Evolving Summary Impairments Pain,ROM,Strength,Balance, Cognition,Bed Mobility, Transfers,Gait,Activity Tolerance Progress Towards Goals Progressing Toward Goals Assessment Summary Pt mshowed much improvement with bed mobility, transfers, and ambulation. He is impulsive and needs mod cueing for FWW management and obstacle avoidance. He did not c/o pain in back or shoulder during ambulation but rather stated his knee hurt. He did not fatigue with ambulation and most likely could have gone farther however, with c/o knee pain he was instructed to return to room. Cognitively speaking he is somewhat confused and needs directioning. LE strength with bed exercises demonstrated good strength. Pt was taken for CT scan. Family in room Goals Bed Mobility Goal Standby Assistance Transfer Goal Standby Assistance,Four Wheeled Walker Gait Goal Standby Assistance,Four Wheel Walker Gait Distance 150 Days to Meet Goals 10 Frequency of Treatment Frequency Of Treatment Once a Day Treatment Plan Physical Therapy Treatment Plan Bed Mobility Training,Transfer Training,Gait Training, Therapeutic Exercise,Balance Retraining,Discharge Planning, Hot or Cold Pack,Neuromuscular Re-ed,Coordination Retraining ,Manual Therapy Other Recommendations and Next Treatment check for left shoulder x-ray, Focus any precautions; transfers and gait with FWW/4WW as tolerated; ther ex for BLE strength Precautions Other Precautions falls Recommendations To Nursing Amount of Assist Needed 1 Person Assist Discharge Recommendations PT Discharge Recommendations Home with 22/09 Assist Available,SNF Rehab Transportation Needs at Discharge Private Vehicle
[2022-03-12 14:02] VITALS: BP 130/63; PULSE 57; TEMP 36.5; O2SAT 99
== END 2022-03-12 14:08 | disposition home or self-care (01) ==
PROVIDERS: Emergency Medicine; Emergency Provider Emergency Medicine; PCP Family Medicine
DX: F03.B11 Unspecified dementia, moderate, with agitation (principal); R53.1 Weakness; R29.6 Repeated falls; M54.50 Low back pain, unspecified; W18.30XA Fall on same level, unspecified, initial encounter; Z79.01 Long term (current) use of anticoagulants; Z79.899 Other long term (current) drug therapy; Z20.822 Contact with and (suspected) exposure to COVID-19
CPT/HCPCS: 0241U; 36415; 70450; 72125; 72131; 73030; 80048; 81003; 82550; 82553; 83880; 84484; 85025; 85610; 96361; 96372; 96374; 97110; 97116; 97162; 97530; 99285; J1630

== ENCOUNTER 2022-06-12 10:53 | Emergency (ER) | payer MEDICARE, SELFPAY ==
[2022-06-12] VITALS (8 sets, daily range): BP systolic 186–221; BP diastolic 81–98; PULSE 55–60; RESP 19; TEMP 36.6; O2SAT 95–98
[2022-06-12] MEDS: SODIUM CHLORIDE 0.9% 500 ML 1000 ML IV (11:30)
[2022-06-12 11:32] LABS: Add Manual Diff / Slide Review NO; Basophils Absolute Auto 100 /uL (0-100); Eosinophils Absolute Auto 200 /uL (0-450); Eosinophils Percent Auto 2.8 % (2-4); Hematocrit 40.9 % (41-53); Hemoglobin 13.9 g/dL (13.5-17.5); Lymphocytes Absolute Auto 1100 /uL (1100-4500); Lymphocytes Percent Auto 13.4 % (25-40); Mean Corpuscular HGB Conc 34.1 % (30-36); Mean Corpuscular Hemoglobin 31.5 PG (26-34); Mean Corpuscular Volume 92.6 fL (80-100); Monocytes Absolute Auto 900 /uL (0-900); Monocytes Percent Auto 10.6 % (3-14); Neutrophils Absolute Auto 6100 /uL (1500-7000); Neutrophils Percent Auto 72.2 % (50-75); Platelet Count 125 X10^3/uL (150-400); Red Blood Cell Count 4.41 X10^6/uL (4.5-5.9); White Blood Cell Count 8.4 X10^3/uL (4.5-11.0)
[2022-06-12 11:46] LABS: Alanine Aminotransferase 21 IU/L (<50); Albumin 3.5 g/dL (3.5-5.0); Albumin Globulin Ratio 1.2 (1.0-2.8); Alkaline Phosphatase 53 U/L (38-126); Aspartate Aminotransferase 31 IU/L (17-59); BUN Creatinine Ratio 20.3 (6-22); Blood Urea Nitrogen 16 mg/dL (9-20); Calcium 8.7 mg/dL (8.4-10.2); Carbon Dioxide 29 mmol/L (22-32); Chloride 106 mmol/L (98-107); Creatine Kinase 77 U/L (55-170); Estimated Glomerular Filt Rate > 60 mL/min (>60); Glucose 103 mg/dL (80-110); HEMOLYSIS 37 (0-50); Magnesium 2.1 mg/dL (1.6-2.3); Potassium 3.9 mmol/L (3.4-5.1); Sodium 142 mmol/L (137-145); Total Protein 6.5 g/dL (6.3-8.2)
[2022-06-12 11:56] LABS: Troponin I < 0.012 ng/mL (0.01-0.034)
--- NOTE | 2022-06-12 12:21 | PC.NURSE ---
Son and daughter in law at the bedside.
[2022-06-12 12:24] LABS: Appearance Urine UA CLEAR; Bilirubin Urine UA NEGATIVE (NEGATIVE); Color Urine UA YELLOW; Glucose Urine UA NEGATIVE (Negative); Ketones Urine UA NEGATIVE (NEGATIVE); Leukocyte Esterase Urine UA NEGATIVE (NEGATIVE); Nitrite Urine UA NEGATIVE (Negative); Occult Blood Urine UA NEGATIVE (Negative); Protein Urine UA NEGATIVE (Negative); Urobilinogen Urine UA 0.2 E.U./dL (0.2); pH Urine UA 5.5 (4.5-8.0)
[2022-06-12 12:26] LABS: Bacteria Urine None Seen; Culture Indicated Urine Cult Not Indicated; RBC Urine None Seen (0-5/HPF); Urine Comments Microscopic Normal; WBC Urine None Seen (0-5/HPF)
--- NOTE | 2022-06-12 14:47 | ED_ITS ---
HPI - Altered Mental Status General Chief Complaint: Altered Mental Status Stated Complaint: Agitated Time Seen by Provider: 06/12/22 10:56 Source: EMS Mode of arrival: EMS History of Present Illness HPI narrative: 87-year-old male nonsmoker with history of hypertension, dementia and chronic AFib presents by EMS at the request of his nursing facility. The report is that he was agitated today and yelling out, acting inappropriately and nursing staff became concerned. EMS reports that he was calm and without incident for the duration of transport. There is no report of any provocation. He is had no abnormal urine or fever. There is no report of any recent trauma or injury or other changes in medications. Related Data Home Medications Medication Instructions Recorded Confirmed furosemide 40 mg tablet 20 mg PO DAILY 03/19/22 03/19/22 Previous Rx's Medication Instructions Recorded digoxin 125 mcg (0.125 mg) tablet 125 mcg PO DAILY #90 tabs 07/18/21 potassium chloride 8 mEq 8 meq PO DAILY #90 caps 02/03/22 capsule,extended release gabapentin 100 mg capsule 100 mg PO BID #60 caps 02/12/22 hydrocodone 5 mg-acetaminophen 325 1 tab PO Q6H PRN pain #90 tabs 02/18/22 mg tablet metoprolol succinate 100 mg 100 mg PO DAILY #90 tabs 02/20/22 tablet,extended release 24 hr tamsulosin 0.4 mg capsule 0.4 mg PO DAILY #90 caps 02/20/22 quetiapine 25 mg tablet (Seroquel) 12.5 - 25 mg PO BID PRN aggitation 03/12/22 #60 tabs meloxicam 7.5 mg tablet 7.5 mg PO DAILY #30 tabs 03/19/22 lorazepam 0.5 mg tablet 0.5 mg PO TID PRN anxiety #30 tabs 04/01/22 Allergies Allergy/AdvReac Type Severity Reaction Status Date / Time No Known Drug Allergies Allergy Verified 06/12/22 11:01 Review of Systems Review of Systems ROS Unobtainable: Unobtainable due to mental status/LOC Patient History Medical History Asthma Atrial fibrillation BPH (benign prostatic hyperplasia) Cervical spine disease CHF (congestive heart failure) Dementia Disease of spine Facial basal cell cancer Hearing loss Hepatitis Hyperlipidemia Jaundice Lumbar stenosis with neurogenic claudication Osteoarthritis Shoulder pain Vision disorder Surgical History Anesthesia History of cataract removal with insertion of prosthetic lens History of discectomy (~2001) History of fusion of cervical spine (~2001) History of lumbar laminectomy (~2001) Family History Mother Cancer Brother History of kidney cancer Sister History of heart disease Social History household members: none Smoking Status: Never smoker Smoking Status: Never smoker alcohol intake frequency: 0-2 drinks per day Substance Use Type: does not use Exam Narrative Exam Narrative: GENERAL: [87] year old patient appears stated age. Well-developed patient, in mild distress. Pleasantly confused (GCS 14) HEAD: Atraumatic. Normocephalic. EYES: Pupils equal round and reactive. Extraocular motions intact. No scleral icterus. No injection or drainage. ENT: Nose without bleeding, purulent drainage. Throat without erythema, tonsillar hypertrophy or exudate. Airway patent. NECK: Trachea midline. Non tender CARDIOVASCULAR: Regular rate and rhythm without murmurs, gallops, or rubs. RESPIRATORY: Clear to auscultation. Breath sounds equal bilaterally. No wheezes, rales, or rhonchi. GASTROINTESTINAL: Abdomen soft, non-tender, nondistended. EXTREMITIES: No edema or joint tenderness. BACK: Nontender without deformity or crepitance. No flank tenderness. NEURO: Cranial nerves 2-12 grossly intact SKIN: No rash or erythema of visible areas Initial Vital Signs Initial Vital Signs: Vital Signs Temperature 97.8 F 06/12/22 11:01 Course Orders Ordered: ED Orders 06/12/22 11:12 Urinalysis and Microscopic Stat 06/12/22 11:26 Complete Blood Count AUTO DIFF Stat Comprehensive Metabolic Panel Stat Magnesium Stat Troponin & CK Cardiac Panel Stat 06/12/22 12:12 Consult to [facility] [place] - Dry Kiln Worker Stat Discontinued Medications Sodium Chloride (Normal Saline 0.9%) 500 mls @ 1,000 mls/hr IV BOLUS ONE Stop: 06/12/22 11:25 Last Infusion: 06/12/22 12:11 Dose: 0 mls/hr Documented By: Admin: 06/12/22 11:30 Dose: 1,000 mls/hr Documented By: ADRI Vital Signs Vital signs: Vital Signs - 8 hr 06/12/22 11:30 06/12/22 13:56 06/12/22 13:57 Pulse Rate 58 L 57 L 57 L Blood Pressure 186/81 H Pulse Oximetry 96 95 96 06/12/22 13:57 06/12/22 15:08 06/12/22 15:09 Pulse Rate Blood Pressure 186/81 H 221/98 H Pulse Oximetry 98 06/12/22 15:09 Pulse Rate 55 L Blood Pressure Pulse Oximetry 98 MDM - Altered Mental Status Lab Data 06/12/22 11:26 06/12/22 11:26 Labs: Lab Results 06/12/22 06/12/22 06/12/22 Range/Units 11:12 11:26 11:26 WBC 8.4 (4.5-11.0) X10^3/uL RBC 4.41 L (4.5-5.9) X10^6/uL Hgb 13.9 (13.5-17.5) g/dL Hct 40.9 L (41-53) % MCV 92.6 (80-100) fL MCH 31.5 (26-34) PG MCHC 34.1 (30-36) % RDW 15.0 H (11.6-14.8) % Plt Count 125 L (150-400) X10^3/uL Neut % (Auto) 72.2 (50-75) % Lymph % (Auto) 13.4 L (25-40) % [place] % (Auto) 10.6 (3-14) % Eos % (Auto) 2.8 (2-4) % Baso % (Auto) 1.0 (0-2) % Neut # (Auto) 6100 (8398-3906) /uL Lymph # (Auto) 1100 (6546-8449) /uL [place] # (Auto) 900 (0-900) /uL Eos # (Auto) 200 (0-450) /uL Baso # (Auto) 100 (0-100) /uL Sodium 142 (137-145) mmol/L Potassium 3.9 (3.4-5.1) mmol/L Chloride 106 (98-107) mmol/L Carbon Dioxide 29 (22-32) mmol/L BUN 16 (9-20) mg/dL Creatinine 0.79 (0.66-1.25) mg/dL Estimated GFR > 60 (>60) mL/min BUN/Creatinine Ratio 20.3 (6-22) Glucose 103 (80-110) mg/dL Calcium 8.7 (8.4-10.2) mg/dL Magnesium 2.1 (1.6-2.3) mg/dL Total Bilirubin 1.0 (0.2-1.3) mg/dL AST 31 (17-59) IU/L ALT 21 (<50) IU/L Alkaline Phosphatase 53 (38-126) U/L Total Creatine Kinase 77 (55-170) U/L CK-MB (CK-2) TNP CK-MB (CK-2) Rel Index TNP Troponin I < 0.012 (0.01-0.034) ng/mL Total Protein 6.5 (6.3-8.2) g/dL Albumin 3.5 (3.5-5.0) g/dL Globulin 3.0 (1.7-4.1) g/dL Albumin/Globulin Ratio 1.2 (1.0-2.8) Urine Color Yellow Urine Appearance Clear Urine pH 5.5 (4.5-8.0) Ur Specific [place] 1.020 (1.000-1.035) Urine Protein Negative (Negative) Urine Glucose (UA) Negative (Negative) g/dL Urine Ketones Negative (NEGATIVE) Urine Occult Blood Negative (Negative) Urine Nitrate Negative (Negative) Urine Bilirubin Negative (NEGATIVE) Urine Urobilinogen 0.2 (0.2) E.U./dL Ur Leukocyte Esterase Negative (NEGATIVE) Urine RBC None seen (0-5/HPF) Urine WBC None seen (0-5/HPF) Urine Bacteria None seen (None) Ur Culture Indicated? Cult not indicated Micro UA Comment Microscopic normal Urine Dip Bedside Urine Glucose Negative Bedside Urine Bilirubin - Negative Bedside Urine Ketone - Negative Urine Specific Allgood 1.015 Bedside Urine Occult Blood - Negative Bedside Urine pH 6.0 Bedside Urine Protein - Negative Bedside Urine Urobilinogen - Negative Bedside Urine Nitrite - Negative Bedside Urine Leukocytes - Negative Esterase MDM Narrative Medical decision making narrative: [87] year old patient presents with evaluation of agitation Multiple etiologies for patient's symptoms considered including, but not limited to: [Dementia, urinary tract infection, electrolyte abnormality versus other] Prior Charts reviewed in our EMR Primary Historian: patient, patient's family Labs reviewed and interpreted by myself: No significant abnormalities requiring a specific intervention Consultations: Discussed with patient's primary care provider. She will increase the doses of some of his medications and follow closely Patient was asymptomatic for the duration of his visit and had no signs of agitation. There was no evidence of any reversible cause of any of his symptoms or anything requiring specific intervention or treatment. We reached out to the arranging funeral director services at the patient's home who said they would be happy to take him back provided there is a plan to address his behavior with medication changes. As noted above his primary care provider will take care of this. I had a lengthy discussion at the bedside with patient's family who have had their questions answered to their apparent satisfaction. They understand and agree with diagnosis and plan Findings and discharge diagnosis discussed with patient/family followed by verbalization of understanding Return precautions discussed with patient/family whom verbalize understanding of diagnosis and plan Discharge Plan Departure Patient Disposition: Home Clinical Impression: Agitation due to dementia, Hallucinations Instructions: Dementia Activity Restrictions/Additional Instructions: *You have been diagnosed with [agitation likely due to dementia. Your provider will be changing some of the doses of your medication which will hopefully help] *What to do: *Please continue to take your regular medications as directed. [ ] New medication prescriptions sent to your pharmacy: [ ] [ ] New medication written as a paper prescription [ ] No new medications given *Please follow up with your primary care provider in 2-3 days, call for an appointment. Let them know you were seen in the Emergency Department and that we ask that you be seen in follow up. We will electronically transmit a record of today's note if your PCP is in our system *Return to Emergency Department if you should have any new, worsening or concerning symptoms, such as [fever greater than 101 F, shaking chills, worsening pain, persistent vomiting or other bothersome symptoms] Prescriptions: No Action gabapentin 100 mg capsule 100 mg PO BID Qty: 60 1RF hydrocodone-acetaminophen 5-325 mg tablet 1 tab PO Q6H PRN (Reason: pain) Qty: 90 0RF Rx Instructions: Decreasing dosing amount due to progressive dementia metoprolol succinate 100 mg tablet extended release 24 hr 100 mg PO DAILY Qty: 90 0RF tamsulosin 0.4 mg capsule 0.4 mg PO DAILY Qty: 90 0RF lorazepam 0.5 mg tablet 0.5 mg PO TID PRN (Reason: anxiety) Qty: 30 1RF digoxin 125 mcg (0.125 mg) tablet 125 mcg PO DAILY Qty: 90 3RF potassium chloride 8 mEq capsule, extended release 8 meq PO DAILY Qty: 90 1RF furosemide 40 mg tablet 20 mg PO DAILY Rx Instructions: patient has only been taking 1/2 tablet meloxicam 7.5 mg tablet 7.5 mg PO DAILY Qty: 30 5RF quetiapine [Seroquel] 25 mg tablet 12.5 - 25 mg PO BID PRN (Reason: aggitation) Qty: 60 2RF Referrals: Nathaniel Sarmiento DO [Primary Care Provider] - Stand Alone Forms: Patient Portal/API
--- NOTE | 2022-06-12 16:21 | CM.SWNOTE ---
PERSONNEL COORDINATOR Note PERSONNEL COORDINATOR received consult for patient. Patient is 87 y/o male who presents to ED via EMS due to 911 call from [facility] in [place] due to concern for patient's aggressive behaviors. Patient discharges with son/DPOA prior to PERSONNEL COORDINATOR meeting with patient. Per RN, Patient can return to [facility] care upon medical clearance and discharge requesting care plan with new interventions. Patricia Pelayo, APPRENTICE PHOTOGRAPHER
== END 2022-06-12 15:46 | disposition home or self-care (01) ==
PROVIDERS: Emergency Provider Emergency Medicine; PCP Family Medicine
DX: F03.911 Unspecified dementia, unspecified severity, with agitation (principal); R44.3 Hallucinations, unspecified
CPT/HCPCS: 36415; 80053; 81001; 81003; 82550; 83735; 84484; 85025; 99283; 99284

== ENCOUNTER 2022-06-18 20:18 | Inpatient (IN) | payer MEDICARE, SELFPAY ==
--- NOTE | 2022-06-18 20:40 | DI.RAD.S_ITS ---
PROCEDURE: XR HIP W PEL IF DONE RT 2V INDICATIONS: fall with pain in hip with leg shortening TECHNIQUE: 2 views of the hip were acquired. COMPARISON: None. FINDINGS: Bones: Mildly impacted and displaced intertrochanteric fracture of the right femur. Soft tissues: Degenerative changes. Exostosis/enthesopathy of the right anterior superior iliac. No suspicious calcifications. IMPRESSION: Right intertrochanteric femur fracture. Dictated by: Jayden Beatty M.D. on 06/18/2022 at 20:58 Approved by: Jayden Beatty M.D. on 06/18/2022 at 20:59
[2022-06-18 20:43] VITALS: BP 190/91; PULSE 57; RESP 18; TEMP 36.4; O2SAT 93; BMI 24.3
--- NOTE | 2022-06-18 20:51 | DI.RAD.S_ITS ---
PROCEDURE: XR CHEST 1V INDICATIONS: fall TECHNIQUE: One view of the chest was acquired. COMPARISON: [facility], CR, XR CHEST 1V, 02/16/2022, 8:09. [facility], CR, XR CHEST 1V, 12/29/2021, 8:59. FINDINGS: Surgical changes and devices: None. Lungs and pleura: Low lung volumes. Prominence of the right infrahilar region, stable compared to January of 2022. No new consolidation or effusion. Mediastinum: Mediastinal contours appear normal. Heart size is normal. Bones and chest wall: No suspicious bony lesions. Overlying soft tissues appear unremarkable. IMPRESSION: Stable prominence of the right infrahilar region, without new consolidation or pleural effusions. Low lung volumes. Dictated by: Jayden Beatty M.D. on 06/18/2022 at 21:41 Approved by: Jayden Beatty M.D. on 06/18/2022 at 21:42
--- NOTE | 2022-06-18 20:51 | DI.CT.S_ITS ---
PROCEDURE: CT CERVICAL SPINE WO CON INDICATIONS: fall TECHNIQUE: Noncontrast 3 mm thick sections acquired from the skull base to the T4 level. Sagittal and coronal reformats were then constructed. For radiation dose reduction, the following was used: automated exposure control, adjustment of mA and/or kV according to patient size. COMPARISON: [facility], CT, CT CERVICAL SPINE WO CON, 03/09/2022, 22:27. FINDINGS: Image quality: Good Bones: Pasl-xm-ydspniol degenerative changes with postsurgical fusion and decompression at C6-C7. No acute traumatic subluxation or vertebral body height loss identified. Prominent pannus at the C1/C2 articulation again seen. Soft tissues: No pathologic prevertebral soft tissue swelling. There are vascular calcifications. IMPRESSION: No acute fracture or traumatic subluxation of the cervical spine. There are postsurgical changes and [id number]-eehredns spondylosis. If there is high concern for further derangement, consider MRI evaluation. Dictated by: Jayden Beatty M.D. on 06/18/2022 at 21:44 Approved by: Jayden Beatty M.D. on 06/18/2022 at 21:46
--- NOTE | 2022-06-18 20:51 | DI.CT.S_ITS ---
PROCEDURE: CT HEAD/BRAIN WO CON INDICATIONS: fall TECHNIQUE: Noncontrast 4.5 mm thick angled axial sections acquired from the foramen magnum to the vertex, with coronal and sagittal reformats. For radiation dose reduction, the following was used: automated exposure control, adjustment of mA and/or kV according to patient size. COMPARISON: [facility], CT, CT HEAD/BRAIN WO CON, 03/12/2022, 11:32. FINDINGS: Image quality: Good CSF spaces: Basal cisterns are patent. Lateral ventricles are symmetric. Volume: Vascular calcifications. Periventricular white matter disease is commonly seen with chronic microangiopathy. Volume loss is present. These findings are moderate Brain: No intracranial hemorrhage. Garcia-white differentiation is grossly maintained. Craniofacial structures: No displaced fracture. Sinuses are clear. Orbits are intact. IMPRESSION: No acute intracranial abnormality. Dictated by: Jayden Beatty M.D. on 06/18/2022 at 21:42 Approved by: Jayden Beatty M.D. on 06/18/2022 at 21:44
[2022-06-18 20:56] LABS: Add Manual Diff / Slide Review NO; Basophils Absolute Auto 100 /uL (0-100); Basophils Percent Auto 0.7 % (0-2); Eosinophils Absolute Auto 400 /uL (0-450); Eosinophils Percent Auto 4.8 % (2-4); Hematocrit 39.5 % (41-53); Hemoglobin 13.3 g/dL (13.5-17.5); Lymphocytes Absolute Auto 1500 /uL (1100-4500); Mean Corpuscular HGB Conc 33.6 % (30-36); Mean Corpuscular Hemoglobin 31.3 PG (26-34); Monocytes Absolute Auto 900 /uL (0-900); Monocytes Percent Auto 10.2 % (3-14); Neutrophils Absolute Auto 5900 /uL (1500-7000); Neutrophils Percent Auto 67.3 % (50-75); Platelet Count 124 X10^3/uL (150-400); Red Blood Cell Count 4.25 X10^6/uL (4.5-5.9); Red Cell Distribution Width 14.8 % (11.6-14.8); White Blood Cell Count 8.8 X10^3/uL (4.5-11.0)
[2022-06-18] MEDS: MORPHINE 2 MG/ML INJ IV ×2 (21:01→22:45)
[2022-06-18 21:11] LABS: Alanine Aminotransferase 21 IU/L (<50); Albumin 3.5 g/dL (3.5-5.0); Albumin Globulin Ratio 1.3 (1.0-2.8); Alkaline Phosphatase 62 U/L (38-126); Aspartate Aminotransferase 31 IU/L (17-59); BUN Creatinine Ratio 20.2 (6-22); Bilirubin Total 0.8 mg/dL (0.2-1.3); Blood Urea Nitrogen 17 mg/dL (9-20); Calcium 8.6 mg/dL (8.4-10.2); Carbon Dioxide 29 mmol/L (22-32); Chloride 105 mmol/L (98-107); Estimated Glomerular Filt Rate > 60 mL/min (>60); Globulin 2.7 g/dL (1.7-4.1); Glucose 106 mg/dL (80-110); HEMOLYSIS 33 (0-50); Potassium 4.1 mmol/L (3.4-5.1); Sodium 139 mmol/L (137-145); Total Protein 6.2 g/dL (6.3-8.2)
--- NOTE | 2022-06-18 21:38 | ED_ITS ---
HPI - Fall General Chief Complaint: Fall Stated Complaint: Fall/Found down/Hip Fx Time Seen by Provider: 06/18/22 20:51 Source: family and EMS Mode of arrival: EMS History of Present Illness HPI Narrative: Patient is a 87-year-old male history of atrial fibrillation no longer on anticoagulation secondary to falls presents today after a fall at [facility]. Unclear specifics of fall. He is in a cervical collar EMS reports that history of fusion was out of precaution. No evidence of head injury. Right leg shortened and rotated. Patient is not complaining of other pain. Family at bedside states that he is comfort measures DNR. However he typically ambulates with a walker he can get himself dressed and does some daily living activities. Related Data Home Medications Medication Instructions Recorded Confirmed furosemide 40 mg tablet 20 mg PO DAILY 03/19/22 03/19/22 Previous Rx's Medication Instructions Recorded digoxin 125 mcg (0.125 mg) tablet 125 mcg PO DAILY #90 tabs 07/18/21 potassium chloride 8 mEq 8 meq PO DAILY #90 caps 02/03/22 capsule,extended release gabapentin 100 mg capsule 100 mg PO BID #60 caps 02/12/22 hydrocodone 5 mg-acetaminophen 325 1 tab PO Q6H PRN pain #90 tabs 02/18/22 mg tablet metoprolol succinate 100 mg 100 mg PO DAILY #90 tabs 02/20/22 tablet,extended release 24 hr tamsulosin 0.4 mg capsule 0.4 mg PO DAILY #90 caps 02/20/22 quetiapine 25 mg tablet (Seroquel) 12.5 - 25 mg PO BID PRN aggitation 03/12/22 #60 tabs meloxicam 7.5 mg tablet 7.5 mg PO DAILY #30 tabs 03/19/22 lorazepam 0.5 mg tablet 0.5 mg PO TID PRN anxiety #30 tabs 04/01/22 Allergies Allergy/AdvReac Type Severity Reaction Status Date / Time No Known Drug Allergies Allergy Verified 06/12/22 11:01 Review of Systems Review of Systems ROS Unobtainable: All systems reviewed & are unremarkable except as noted in HPI and below Patient History Medical History Asthma Atrial fibrillation BPH (benign prostatic hyperplasia) Cervical spine disease CHF (congestive heart failure) Dementia Disease of spine Facial basal cell cancer Hearing loss Hepatitis Hyperlipidemia Jaundice Lumbar stenosis with neurogenic claudication Osteoarthritis Shoulder pain Vision disorder Surgical History Anesthesia History of cataract removal with insertion of prosthetic lens History of discectomy (~2001) History of fusion of cervical spine (~2001) History of lumbar laminectomy (~2001) Family History Mother Cancer Brother History of kidney cancer Sister History of heart disease Social History household members: none Smoking Status: Never smoker Smoking Status: Never smoker alcohol intake frequency: 0-2 drinks per day Substance Use Type: does not use Exam Initial Vital Signs Initial Vital Signs: Vital Signs Temperature 97.6 F 06/18/22 20:43 Pulse Rate 57 L 06/18/22 20:43 Respiratory Rate 18 06/18/22 20:43 Blood Pressure 190/91 H 06/18/22 20:43 Pulse Oximetry 93 06/18/22 20:43 Oxygen Delivery Method Room Air 06/18/22 20:43 GENERAL: Alert pleasantly confused 87-year-old male HEENT: Head atraumatic,EOMI, pupils reactive, face symmetric, [moist] mucous membranes NECK: Mildly tender in C-spine CARDIOVASCULAR: Regular rate and rhythm without murmurs, rubs or gallops. RESPIRATORY: Breath sounds equal bilaterally, no wheezes rales or rhonchi. ABDOMEN: Soft, nontender. Normoactive bowel sounds all 4 quadrants. No guarding or rebound. EXTREMITIES: Normal range of motion, no clubbing or edema. Neurovascularly intact Pelvis stable tender. Distal pedal pulse intact NEUROLOGICAL: Clinical Assistant Professor strength equal bilaterally SKIN: Warm, dry, no laceration, no petechiae, no rashes or lesions. Course Orders Ordered: ED Orders 06/18/22 20:40 XR hip w pel if done RT 2V Stat 06/18/22 20:51 CT cervical spine wo con Stat CT head/brain wo con Stat Chest [XR chest 1V] Stat 06/18/22 22:58 COVID19 -Nasal RAPID Stat Acetaminophen (Acetaminophen 325 Mg Tablet) 650 mg PO Q6H PRN PRN Reason: Fever/Mild Pain (1-3) Hydrocodone Bitart/Acetaminophen (Hydrocodone/Acet 5/325 Tablet) 1 tab PO Q4H PRN PRN Reason: Pain, Moderate (4-6) Last Admin: 06/19/22 00:11 Dose: 1 tab Documented By: KATHI Al Hydrox/Mg Hydrox/Simethicone (Mag Hydrox/Alum/Simeth 30 Ml Udc) 30 ml PO Q6HR PRN PRN Reason: Dyspepsia Calcium Carbonate (Calcium Carbonate 500 Mg Tab) 1,000 mg PO Q4HR PRN PRN Reason: Dyspepsia Digoxin (Digoxin 0.125 Mg Tablet) 0.125 mg PO DAILY [facility] Gabapentin (Gabapentin 100 Mg Capsule) 100 mg PO BID [facility] Last Admin: 06/19/22 00:11 Dose: 100 mg Documented By: KATHI Hydromorphone HCl (Hydromorphone 0.5 Mg Inj) 0.5 mg IV Q4H PRN PRN Reason: Pain, Severe (7-10) Dextrose/Sodium Chloride (Dextrose 5%-0.9% Ns) 1,000 mls @ 60 mls/hr IV CONT [facility] Last Admin: 06/19/22 00:06 Dose: 60 mls/hr Documented By: KATHI Meloxicam (Meloxicam 7.5 Mg Tablet) 7.5 mg PO DAILY [facility] Metoprolol Succinate (Metoprolol Er 50 Mg Tablet) 100 mg PO DAILY [facility] Naloxone HCl (Naloxone 0.4 Mg/Ml Vial) 0.2 mg IV Q2MIN PRN PRN Reason: Opiate Reversal Ondansetron HCl (Ondansetron 4 Mg/2 Ml Inj) 4 mg IV Q4HR PRN PRN Reason: Nausea And Vomiting Potassium Chloride (Potassium Chloride 10 Meq Tab) 10 meq PO DAILY [facility] Quetiapine Fumarate (Quetiapine 25 Mg Tablet) 25 mg PO BID [facility] Last Admin: 06/19/22 00:11 Dose: 25 mg Documented By: KATHI Sennosides (Sennosides 8.6 Mg Tablet) 17.2 mg PO BEDTIME [facility] Discontinued Medications Lidocaine HCl (Lidocaine 2% (Glydo) 6 Ml Gel) 6 ml TOP NOW ONE Stop: 06/18/22 22:45 Last Admin: 06/18/22 22:47 Dose: 6 ml Documented By: RADHA Metoprolol Tartrate (Metoprolol Ir 25 Mg Tablet) 25 mg PO NOW ONE Stop: 06/18/22 23:32 Last Admin: 06/19/22 00:12 Dose: 25 mg Documented By: KATHI Morphine Sulfate (Morphine 2 Mg/Ml Inj) 2 mg IV NOW ONE Stop: 06/18/22 20:52 Last Admin: 06/18/22 21:01 Dose: 2 mg Documented By: RADHA Morphine Sulfate (Morphine 2 Mg/Ml Inj) 2 mg IV NOW ONE Stop: 06/18/22 22:43 Last Admin: 06/18/22 22:45 Dose: 2 mg Documented By: RADHA Vital Signs Vital signs: Vital Signs - 8 hr 06/18/22 20:43 Temperature 97.6 F Pulse Rate 57 L Respiratory Rate 18 Blood Pressure 190/91 H Pulse Oximetry 93 Oxygen Delivery Method Room Air MDM - Fall Lab Data 06/18/22 20:30 06/18/22 20:30 Labs: Lab Results 06/18/22 06/18/22 06/18/22 Range/Units 20:30 20:30 22:58 WBC 8.8 (4.5-11.0) X10^3/uL RBC 4.25 L (4.5-5.9) X10^6/uL Hgb 13.3 L (13.5-17.5) g/dL Hct 39.5 L (41-53) % MCV 93.0 (80-100) fL MCH 31.3 (26-34) PG MCHC 33.6 (30-36) % RDW 14.8 (11.6-14.8) % Plt Count 124 L (150-400) X10^3/uL Neut % (Auto) 67.3 (50-75) % Lymph % (Auto) 17.0 L (25-40) % [place] % (Auto) 10.2 (3-14) % Eos % (Auto) 4.8 H (2-4) % Baso % (Auto) 0.7 (0-2) % Neut # (Auto) 5900 (0974-4538) /uL Lymph # (Auto) 1500 (2350-6207) /uL [place] # (Auto) 900 (0-900) /uL Eos # (Auto) 400 (0-450) /uL Baso # (Auto) 100 (0-100) /uL Sodium 139 (137-145) mmol/L Potassium 4.1 (3.4-5.1) mmol/L Chloride 105 (98-107) mmol/L Carbon Dioxide 29 (22-32) mmol/L BUN 17 (9-20) mg/dL Creatinine 0.84 (0.66-1.25) mg/dL Estimated GFR > 60 (>60) mL/min BUN/Creatinine Ratio 20.2 (6-22) Glucose 106 (80-110) mg/dL Calcium 8.6 (8.4-10.2) mg/dL Total Bilirubin 0.8 (0.2-1.3) mg/dL AST 31 (17-59) IU/L ALT 21 (<50) IU/L Alkaline Phosphatase 62 (38-126) U/L Total Protein 6.2 L (6.3-8.2) g/dL Albumin 3.5 (3.5-5.0) g/dL Globulin 2.7 (1.7-4.1) g/dL Albumin/Globulin Ratio 1.3 (1.0-2.8) SARS-CoV-2 (PCR) Negative (Negative) Imaging Data CT scan - head: Radiologist's Impression: PROCEDURE:? CT HEAD/BRAIN WO CON ? INDICATIONS:? fall ? TECHNIQUE:? Noncontrast 4.5 mm thick angled axial sections acquired from the foramen magnum to the vertex, with coronal and sagittal reformats.? For radiation dose reduction, the following was used:? automated exposure control, adjustment of mA and/or kV according to patient size.? ? COMPARISON:? [facility], CT, CT HEAD/BRAIN WO CON, 03/12/2022, 11:32. ? FINDINGS:? Image quality:? Good ? CSF spaces: Basal cisterns are patent. Lateral ventricles are symmetric. Volume:? Vascular calcifications. Periventricular white matter disease is commonly seen with chronic microangiopathy. Volume loss is present. These findings are moderate ? Brain: No intracranial hemorrhage. Garcia-white differentiation is grossly maintained. ? Craniofacial structures: No displaced fracture. Sinuses are clear. Orbits are intact. ? IMPRESSION:? No acute intracranial abnormality. ? ? Dictated by: Jayden Beatty M.D. on 06/18/2022 at 21:42 ?? Chest x-ray: Radiologist's Impression: PROCEDURE:? XR CHEST 1V ? INDICATIONS:? fall ? TECHNIQUE:? One view of the chest was acquired.? ? COMPARISON:? [facility], CR, XR CHEST 1V, 02/16/2022, 8:09.? [facility], CR, XR CHEST 1V, 12/29/2021, 8:59. ? FINDINGS:? ? Surgical changes and devices:? None.? ? Lungs and pleura:? Low lung volumes.? Prominence of the right infrahilar region, stable compared to January of 2022. No new consolidation or effusion. ? Mediastinum:? Mediastinal contours appear normal.? Heart size is normal.? ? Bones and chest wall:? No suspicious bony lesions.? Overlying soft tissues appear unremarkable.? ? IMPRESSION:? Stable prominence of the right infrahilar region, without new consolidation or pleural effusions.? Low lung volumes.? ? ? Dictated by: Jayden Beatty M.D. on 06/18/2022 at 21:41 ? ? Approved by: Jayden Beatty M.D. on 06/18/2022 at 21:42 ? MDM Narrative Medical decision making narrative: Patient 79-year-old male who presents in memory care presents today after ground level fall landing on his right side. He has a intertrochanteric fracture confirmed by x-ray. Head CT and other blood work is overall reassuring. Family at bedside report that he is comfort care and DNR but does typically walk and get around. Dr. Cai updated on patient's symptoms test results Romaine VERDUGO updated patient's symptoms test results and accepts patient Discharge Plan Departure Patient Disposition: Admitted As Inpatient Clinical Impression: Closed fracture of left hip Admit Date/Time: 06/18/22 23:03 Admit Provider: Charlene Gavin
[2022-06-18] MEDS: LIDOCAINE 2% (GLYDO) 6 ML GEL TOP (22:47)
--- NOTE | 2022-06-18 23:03 | P.CONS_ITS ---
History of Present Illness Consult details Date Patient Seen: 06/19/22 Time Patient Seen: 20:38 Chief complaint: Fall/Found down/Hip Fx Reason for consult: R IT hip fx Requesting provider: Trinh Sidhu Narrative: 87 yo male in memory care with dementia. Patient has sustained a fall with R hip pain, unable to ambulate (ambulatory at baseline) found to have IT fx at . family POA 87-year-old male is seen with his power of deputy commonwealth's attorney son Salty Cox and additional family member Re swan provide all of the patient's history. They are independent historians. Patient is hard of hearing and has dementia. Typically ambulates with a walker. Demonstrates pain behaviors in bed. Fidgeting. Moaning. Agitated. Head head and neck CT scans that were negative. Appears to be isolated right intertrochanteric hip fracture. Orthopedic surgery was called by the emergency medicine team regarding the fracture. The patient was indicated for admission to the hospitalist team. The hospitalist and emergency medicine notes were reviewed. Meds Home Medications and Allergies Home Medications Medication Instructions Recorded Confirmed Type digoxin 125 mcg (0.125 mg) tablet 125 mcg PO DAILY #90 tabs 07/18/21 06/19/22 Rx potassium chloride 8 mEq 8 meq PO DAILY #90 caps 02/03/22 06/19/22 Rx capsule,extended release hydrocodone 5 mg-acetaminophen 325 1 tab PO Q6H PRN pain #90 tabs 02/18/22 06/19/22 Rx mg tablet metoprolol succinate 100 mg 100 mg PO DAILY #90 tabs 02/20/22 06/19/22 Rx tablet,extended release 24 hr tamsulosin 0.4 mg capsule 0.4 mg PO DAILY #90 caps 02/20/22 06/19/22 Rx furosemide 40 mg tablet 20 mg PO DAILY 03/19/22 06/19/22 History meloxicam 7.5 mg tablet 7.5 mg PO DAILY #30 tabs 03/19/22 06/19/22 Rx gabapentin 300 mg capsule 300 mg PO QPM 06/19/22 06/19/22 History lorazepam 0.5 mg tablet 0.25 mg PO TID PRN anxiety 06/19/22 06/19/22 History quetiapine 25 mg tablet 25 mg PO BID anxiety 06/19/22 06/19/22 History quetiapine 50 mg tablet 50 mg PO BEDTIME anxiety 06/19/22 06/19/22 History Allergies Allergy/AdvReac Type Severity Reaction Status Date / Time No Known Drug Allergies Allergy Verified 06/12/22 11:01 Review of Systems Review of Systems ROS: Yes unobtainable due to mental condition Exam Vital Signs (past 8 hours): - 06/18/22 20:43 Temperature 97.6 F Pulse Rate 57 L Respiratory Rate 18 Blood Pressure 190/91 H Pulse Oximetry 93 Oxygen Delivery Method Room Air Oxygen Delivery Method Room Air Narrative Exam Narrative: Patient is awake. He is unable to respond reliably to my questions. Agitated and appears uncomfortable. Does endorse right hip pain. Does not demonstrate any grimace with secondary examination palpating the clavicles upper extremities bilaterally forearms and left lower extremity. Limited motor and sensory exam due to mental status but is visualized to flex and extend his bilateral great toes and dorsiflex and plantar flex his ankles. Right lower extremity is externally rotated and shortened consistent with intertrochanteric hip fracture. His calf is soft. He is a palpable dorsalis pedis pulse. And he is demonstrated moving bilateral upper extremities without restriction. Objective Imaging AP pelvis and right hip lateral x-ray: My impression: Displaced intertrochanteric hip fracture right hip. Radiologist's impression: Right intertrochanteric femur fracture Labs 06/19/22 08:10 06/19/22 08:10 Labs: Laboratory Results - last 24 hr 06/18/22 06/18/22 20:30 20:30 WBC 8.8 RBC 4.25 L Hgb 13.3 L Hct 39.5 L MCV 93.0 MCH 31.3 MCHC 33.6 RDW 14.8 Plt Count 124 L Neut % (Auto) 67.3 Lymph % (Auto) 17.0 L [place] % (Auto) 10.2 Eos % (Auto) 4.8 H Baso % (Auto) 0.7 Neut # (Auto) 5900 Lymph # (Auto) 1500 [place] # (Auto) 900 Eos # (Auto) 400 Baso # (Auto) 100 Sodium 139 Potassium 4.1 Chloride 105 Carbon Dioxide 29 BUN 17 Creatinine 0.84 Estimated GFR > 60 BUN/Creatinine Ratio 20.2 Glucose 106 Calcium 8.6 Total Bilirubin 0.8 AST 31 ALT 21 Alkaline Phosphatase 62 Total Protein 6.2 L Albumin 3.5 Globulin 2.7 Albumin/Globulin Ratio 1.3 PFSH Medical History Asthma Atrial fibrillation BPH (benign prostatic hyperplasia) Cervical spine disease CHF (congestive heart failure) Dementia Disease of spine Facial basal cell cancer Hearing loss Hepatitis Hyperlipidemia Jaundice Lumbar stenosis with neurogenic claudication Osteoarthritis Shoulder pain Vision disorder Surgical History Anesthesia History of cataract removal with insertion of prosthetic lens History of discectomy (~2001) History of fusion of cervical spine (~2001) History of lumbar laminectomy (~2001) Family History Mother Cancer Brother History of kidney cancer Sister History of heart disease Social History household members: none Tobacco & Substance Use Smoking Status: Never smoker Assessment & Plan Assessment and plan (1) Fx intertrochanteric hip: Status: Acute (2) Osteoporotic hip fracture: Status: Acute Plan right intertroch hip fx from GLF, osteoporotic fx complicated by advance age, dementia indicated for surgical fixation to restore alignment and stability to allow early mobilization and ambulation and reduce the morbidity associated with prolonged immobility. the POAs understand the significant morbidity and mort ality associated with a hip fracture and that without surgery return to ambulation would not be expected. Surgical fixation is recommended. risks include infection, perioperative blood loss, possible requirement of transfusion, pneumonia, heart attack, stroke, paralysis, . Patient has a hip fracture. We discussed these are sentinel events an elderly population with a high morbidity and mortality. We discussed that it is recommended to have surgical fixation of hip fractures in almost all cases to help reduce the higher associated morbidity and mortality with prolonged bed rest. The risks and benefits of the procedure have been discussed with the POA and they have given the opportunity to ask questions. The risks of surgery include but are not limited to infection, malunion, nonunion, persistence of pain, damage to nerves and blood vessels, posttraumatic arthritis, DVT, PE, ca rdiopulmonary complications heart attack, stroke, paralysis and . The power of deputy commonwealth's attorney expressed a thorough understanding of the risks and benefits of surgery and has elected to proceed. Consent was signed. Plan will be for surgery tomorrow. Patient will be NPO after midnight or 8 hours prior to scheduled surgery. Will have preoperative antibiotic with Ancef and postoperative appropriate antibiotics. Discussed patient will need to be monitored for acute blood loss anemia postoperatively will likely stay in the hospital several days to work with physical therapy and allow medical stability and then discharge to a rehab facility. High medical complexity. Serious injury hip fracture in medically complex patient with dementia requiring independent historians. Will require inpatient hospital stay and major orthopedic surgery with significant risk of perioperative morbidity and mortality. Chart has been reviewed. History with independent historian. Decision for surgery. Inpatient hospital stay COVID-19 COVID-19 status: Negative Time Spent With Patient Time with patient: 70 minutes or more, with 50% spent counseling/coordinating
[2022-06-18 23:16] LABS: COVID19 -Nasal RAPID Negative (Negative)
--- NOTE | 2022-06-18 23:26 | PM.HP.1 ---
History of Present Illness History of Present Illness Date Patient Seen: 06/18/22 Time Patient Seen: 23:26 Chief complaint: Fall/Found down/Hip Fx Narrative: Bassam snell is an 87-year-old male with a past medical history of chronic atrial fibrillation without anticoagulation, CHF, dementia moderate with associated agitation, frequent falls, BPH, and cervical spine disease. Who presented to the ED via EMS after a fall at [facility].? Unclear specifics of fall.?Right leg shortened and rotated.? Patient is not complaining of other pain.? Family at bedside in ED stated that he is comfort measures DNR.? However he typically ambulates with a walker he can get himself dressed and does some daily living activities. Unable to obtain HPI, ROS due to patient's dementia. On admit patient is stable but slightly hypertensive temp 97.6?, BP 190/91, HR 59, RR 18, O2 saturation 93% on room air. Patient's H&H 13.3/39.5, platelets 124. Renal and hepatic labs are unremarkable, COVID negative. Chest x-ray unchanged from 12 no acute cardiopulmonary process, head CT negative, C-spine pending, right hip x-ray demonstrates right interotrochanteric femur fracture for admit, Dr. Mascorro surgery to consult. [facility] Medical History Asthma Atrial fibrillation BPH (benign prostatic hyperplasia) Cervical spine disease CHF (congestive heart failure) Dementia Disease of spine Facial basal cell cancer Hearing loss Hepatitis Hyperlipidemia Jaundice Lumbar stenosis with neurogenic claudication Osteoarthritis Shoulder pain Vision disorder Surgical History Anesthesia History of cataract removal with insertion of prosthetic lens History of discectomy (~2001) History of fusion of cervical spine (~2001) History of lumbar laminectomy (~2001) Family History Mother Cancer Brother History of kidney cancer Sister History of heart disease Social History household members: none Smoking Status: Never smoker Meds Home Medications and Allergies Home Medications Medication Instructions Recorded Confirmed Type digoxin 125 mcg (0.125 mg) tablet 125 mcg PO DAILY #90 tabs 07/18/21 03/19/22 Rx potassium chloride 8 mEq 8 meq PO DAILY #90 caps 02/03/22 03/19/22 Rx capsule,extended release gabapentin 100 mg capsule 100 mg PO BID #60 caps 02/12/22 03/19/22 Rx hydrocodone 5 mg-acetaminophen 325 1 tab PO Q6H PRN pain #90 tabs 02/18/22 03/19/22 Rx mg tablet metoprolol succinate 100 mg 100 mg PO DAILY #90 tabs 02/20/22 03/19/22 Rx tablet,extended release 24 hr tamsulosin 0.4 mg capsule 0.4 mg PO DAILY #90 caps 02/20/22 03/19/22 Rx quetiapine 25 mg tablet (Seroquel) 12.5 - 25 mg PO BID PRN aggitation 03/12/22 03/19/22 Rx #60 tabs furosemide 40 mg tablet 20 mg PO DAILY 03/19/22 03/19/22 History meloxicam 7.5 mg tablet 7.5 mg PO DAILY #30 tabs 03/19/22 03/19/22 Rx lorazepam 0.5 mg tablet 0.5 mg PO TID PRN anxiety #30 tabs 04/01/22 Rx Allergies Allergy/AdvReac Type Severity Reaction Status Date / Time No Known Drug Allergies Allergy Verified 06/12/22 11:01 Review of Systems Review of Systems Narrative: Unable to obtain ROS due to patient's dementia. Exam Vital Signs (past 8 hours): - 06/18/22 20:43 06/18/22 23:11 Temperature 97.6 F Pulse Rate 57 L Respiratory Rate 18 Blood Pressure 190/91 H Pulse Oximetry 93 Oxygen Delivery Method Room Air Room Air Oxygen Delivery Method Room Air Narrative Exam Narrative: General: Patient is a well-developed, well-nourished elderly male, confused but commonly resting without pain or discomfort, in no distress at this time. HEENT: C-collar in place pending C-spine reading, unable to asses neck. Normocephalic, atraumatic, extraocular muscles intact, oral pharynx is clear and mucous membranes are moist. Chest: Breathing without nasal flaring, retractions, or tachypneic labored Lungs: Auscultation of all lung christian are clear without adventitious sounds, wheezes, rhonchi, or rales. Cardio: regular rate and rhythm without murmur, rubs, or gallops, no carotid bruit, no cardiac pulsations present. Abdomen: Soft nontender, negative for organomegaly, or masses. Bowel sounds are hypoactive present in all 4 quadrants without guarding or rebound, no CVA tenderness. Musculoskeletal: Right leg shortened internal rotation, intact radial and pedal pulses are normal. Skin: Warm dry and intact without rashes, ulcerations or petechiae. Neuro: Patient confused unable to answer any questions, unable to state name or date of , Moves all extremities, sensation to touch intact, no gross deficits noted of cranial nerves. Psych: Patient has a well-kept appearance, confused secondary to dementia. Resting calmly in no pain in bed. Objective Labs 06/18/22 20:30 06/18/22 20:30 Labs: Laboratory Results - last 24 hr 06/18/22 06/18/22 06/18/22 20:30 20:30 22:58 WBC 8.8 RBC 4.25 L Hgb 13.3 L Hct 39.5 L MCV 93.0 MCH 31.3 MCHC 33.6 RDW 14.8 Plt Count 124 L Neut % (Auto) 67.3 Lymph % (Auto) 17.0 L [place] % (Auto) 10.2 Eos % (Auto) 4.8 H Baso % (Auto) 0.7 Neut # (Auto) 5900 Lymph # (Auto) 1500 [place] # (Auto) 900 Eos # (Auto) 400 Baso # (Auto) 100 Sodium 139 Potassium 4.1 Chloride 105 Carbon Dioxide 29 BUN 17 Creatinine 0.84 Estimated GFR > 60 BUN/Creatinine Ratio 20.2 Glucose 106 Calcium 8.6 Total Bilirubin 0.8 AST 31 ALT 21 Alkaline Phosphatase 62 Total Protein 6.2 L Albumin 3.5 Globulin 2.7 Albumin/Globulin Ratio 1.3 SARS-CoV-2 (PCR) Negative Assessment & Plan Assessment & Plan narrative: Bassam snell is an 87-year-old male who lives in a memory care center with a past medical history of chronic atrial fibrillation without anticoagulation, CHF, dementia moderate with associated agitation, frequent falls, BPH, and cervical spine disease who was transported to the ED following a ground level fall resulting in a right intertrochanteric femur fracture. He is admitted to the hospitalist service with Dr. Mascorro to consult for surgery. 1. Ground level fall, history of frequent falls, resulting in right intratrochanteric femur fracture, acute on chronic, present on admission -history of cervical spine disease,chronic back pain, mild chronic thrombocytopenia (baseline 120-140 platelets) -platelets 124, H&H 13.3/39.5 -Dr. Mascorro to consult-she is unsure as to the surgery being on 06/19, or for 03/21/2022 as her schedule is quite full -will make patient NPO at 10:00 a.m. on 06/19/2022-planning for possible surg, with glucose checks q.6 hours -Reynoso placed by ED, I&O q.12 -D5 NS at 60 cc/HR -patient on strict fall precautions -pain management/comfort measures -will continue hydrocodone, gabapentin, meloxicam 2. Essential hypertension, hypertensive urgency, with chronic atrial fibrillation without anticoagulation, acute on chronic, present on admission -admitting BP 190/91, repeat 226/116, HR 63-ordered now dose metoprolol p.o. 25 mg due to letha HR -continue digoxin, metoprolol, holding Lasix, continue K+ 3. Dementia, moderate, with agitation, acute on chronic, present on admission -continue Seroquel -aki Pond and his will remain at bedside 4. Malnutrition, mild, acute on chronic, present on admission -BMI 23.3 -patient's malnutrition places them at high risk for medical and surgical complications in relation to acute illness/chronic illness. This increases the difficulty in complexity of medical management and increases the chances poor outcomes such as mortality and morbidity as well as impaired wound healing, and immune suppression. -No dietary consult ordered due to patient's moderate dementia Code status: DNR Surrogate decision maker: Aki BORJA PCR: Negative DVT/VTE prophylaxis: Holding medication, SCD on left only Disposition: Patient admitted to acute care, for surgical intervention for right hip fracture, expected length of stay greater than 2 midnights. I have utilized all available immediate resources to obtain, update, or review the patient's current medications. I confirmed that the patient's advanced care plan is present, Code status is documented and/or surrogate decision maker is listed in the patient's medical record. I have personally reviewed patient's chart notes from PCP, specialists, diagnostic imaging, and laboratory results.
[2022-06-18 23:32] VITALS: BMI 23.2
[2022-06-18 23:33] VITALS: BP 226/116; PULSE 63; RESP 20; TEMP 36.4; O2SAT 96
[2022-06-19] VITALS (7 sets, daily range): BP systolic 172–213; BP diastolic 78–100; PULSE 58–74; RESP 16–20; TEMP 36.3–37.3; O2SAT 88–94
[2022-06-19] MEDS: DEXTROSE 5%-0.9% NS 1,000 ML 60 ML IV ×2 (00:06→15:57)
[2022-06-19] MEDS: GABAPENTIN 100 MG CAPSULE PO ×2 (00:11→09:17)
[2022-06-19] MEDS: HYDROCODONE/ACET 5/325 TABLET 1 TAB PO ×2 (00:11→09:14)
[2022-06-19] MEDS: QUETIAPINE 25 MG TABLET PO ×2 (00:11→09:16)
[2022-06-19] MEDS: METOPROLOL IR 25 MG TABLET PO (00:12)
[2022-06-19 00:49] LABS: Appearance Urine UA CLEAR; Bilirubin Urine UA NEGATIVE (NEGATIVE); Color Urine UA YELLOW; Glucose Urine UA NEGATIVE (Negative); Ketones Urine UA NEGATIVE (NEGATIVE); Leukocyte Esterase Urine UA NEGATIVE (NEGATIVE); Nitrite Urine UA NEGATIVE (Negative); Occult Blood Urine UA 2+ (Negative); Protein Urine UA NEGATIVE (Negative); Specific Gravity Urine UA 1.015 (1.000-1.035)
[2022-06-19 01:06] LABS: Bacteria Urine None Seen; Culture Indicated Urine Cult Not Indicated; RBC Urine 5-10/HPF (0-5/HPF); Renal Epithelial Cells Urine 1-5/HPF (0-1/HPF); WBC Urine None Seen (0-5/HPF)
[2022-06-19 08:21] LABS: Add Manual Diff / Slide Review NO; Basophils Absolute Auto 100 /uL (0-100); Basophils Percent Auto 0.7 % (0-2); Eosinophils Absolute Auto 400 /uL (0-450); Eosinophils Percent Auto 3.5 % (2-4); Hematocrit 39.8 % (41-53); Hemoglobin 13.5 g/dL (13.5-17.5); Lymphocytes Absolute Auto 1200 /uL (1100-4500); Lymphocytes Percent Auto 10.4 % (25-40); Mean Corpuscular HGB Conc 33.9 % (30-36); Mean Corpuscular Hemoglobin 31.6 PG (26-34); Monocytes Absolute Auto 1200 /uL (0-900); Monocytes Percent Auto 10.4 % (3-14); Neutrophils Absolute Auto 8300 /uL (1500-7000); Platelet Count 109 X10^3/uL (150-400); Red Blood Cell Count 4.28 X10^6/uL (4.5-5.9); White Blood Cell Count 11.1 X10^3/uL (4.5-11.0)
[2022-06-19 08:28] LABS: INR 1.1 (0.9-1.3); Prothrombin Time 13.1 SECONDS (10.1-12.7)
[2022-06-19 08:31] LABS: PTT Partial Thromboplastin Tim 35 SECONDS (26-36)
[2022-06-19 08:34] LABS: BUN Creatinine Ratio 16.7 (6-22); Blood Urea Nitrogen 14 mg/dL (9-20); Calcium 8.5 mg/dL (8.4-10.2); Carbon Dioxide 33 mmol/L (22-32); Chloride 105 mmol/L (98-107); Estimated Glomerular Filt Rate > 60 mL/min (>60); Glucose 109 mg/dL (80-110); HEMOLYSIS < 15 (0-50); Magnesium 2.1 mg/dL (1.6-2.3); Potassium 3.8 mmol/L (3.4-5.1); Sodium 140 mmol/L (137-145)
[2022-06-19] MEDS: METOPROLOL ER 50 MG TABLET 100 MG PO (09:16)
[2022-06-19] MEDS: POTASSIUM CHLORIDE 10 MEQ TAB PO (09:17)
[2022-06-19] MEDS: DIGOXIN 0.125 MG TABLET PO (09:17)
[2022-06-19] MEDS: MELOXICAM 7.5 MG TABLET PO (09:17)
--- NOTE | 2022-06-19 09:21 | PM.PN.1 ---
Subjective Subjective Interval history: 87 M with PMH of afib, not on AC, dementia admitted with a ground level fall and R hip fracture. Patient confused, and hard of hearing. Denies any pain currently, last pain medication was at midnight yesterday. Planning for surgery today or tomorrow depending on OR availability. Exam Vital Signs (past 8 hours): - 06/19/22 07:55 06/19/22 09:16 06/19/22 09:17 Temperature 97.3 F L Pulse Rate 58 L 59 L Respiratory Rate 16 Blood Pressure 181/87 H 181/87 H 181/87 H Pulse Oximetry 94 Oxygen Flow Rate 0 Oxygen Delivery Method Room Air Oxygen Flow Rate 0 Narrative Exam Narrative: General: Patient is a well-developed, well-nourished elderly male, confused but resting without pain or discomfort, in no distress at this time. HEENT: C-collar in place, removed with no midline tenderess and removed C-spine collar. Normocephalic, atraumatic, extraocular muscles intact, oral pharynx is clear and mucous membranes are moist. Chest: Breathing without nasal flaring, retractions, or tachypneic labored Lungs: Auscultation of all lung christian are clear without adventitious sounds, wheezes, rhonchi, or rales. Cardio: regular rate and rhythm without murmur, rubs, or gallops, no carotid bruit, no cardiac pulsations present. Abdomen: Soft nontender, negative for organomegaly, or masses. Bowel sounds are hypoactive present in all 4 quadrants without guarding or rebound, no CVA tenderness. Musculoskeletal: Right leg shortened, externally rotated, intact radial and pedal pulses are normal. Skin: Warm dry and intact without rashes, ulcerations or petechiae. Neuro: Patient confused unable to answer any questions, unable to state name or date of though he is hard of hearing, Moves all extremities, sensation to touch intact, no gross deficits noted of cranial nerves. Psych: Patient has a well-kept appearance, confused secondary to dementia. Resting calmly in no pain in bed. Objective Labs 06/19/22 08:10 06/19/22 08:10 Labs: Laboratory Results - last 24 hr 06/18/22 06/18/22 06/18/22 20:30 20:30 22:58 WBC 8.8 RBC 4.25 L Hgb 13.3 L Hct 39.5 L MCV 93.0 MCH 31.3 MCHC 33.6 RDW 14.8 Plt Count 124 L Neut % (Auto) 67.3 Lymph % (Auto) 17.0 L [place] % (Auto) 10.2 Eos % (Auto) 4.8 H Baso % (Auto) 0.7 Neut # (Auto) 5900 Lymph # (Auto) 1500 [place] # (Auto) 900 Eos # (Auto) 400 Baso # (Auto) 100 PT INR APTT Sodium 139 Potassium 4.1 Chloride 105 Carbon Dioxide 29 BUN 17 Creatinine 0.84 Estimated GFR > 60 BUN/Creatinine Ratio 20.2 Glucose 106 Calcium 8.6 Magnesium Total Bilirubin 0.8 AST 31 ALT 21 Alkaline Phosphatase 62 Total Protein 6.2 L Albumin 3.5 Globulin 2.7 Albumin/Globulin Ratio 1.3 Urine Color Urine Appearance Urine pH Ur Specific [place] Urine Protein Urine Glucose (UA) Urine Ketones Urine Occult Blood Urine Nitrate Urine Bilirubin Urine Urobilinogen Ur Leukocyte Esterase Urine RBC Urine WBC Ur Renal Epithelial Cell Urine Bacteria Ur Culture Indicated? SARS-CoV-2 (PCR) Negative 06/19/22 06/19/22 06/19/22 00:00 08:10 08:10 WBC 11.1 H RBC 4.28 L Hgb 13.5 Hct 39.8 L MCV 93.0 MCH 31.6 MCHC 33.9 RDW 15.0 H Plt Count 109 L Neut % (Auto) 75.0 Lymph % (Auto) 10.4 L [place] % (Auto) 10.4 Eos % (Auto) 3.5 Baso % (Auto) 0.7 Neut # (Auto) 8300 H Lymph # (Auto) 1200 [place] # (Auto) 1200 H Eos # (Auto) 400 Baso # (Auto) 100 PT 13.1 H INR 1.1 APTT 35 Sodium Potassium Chloride Carbon Dioxide BUN Creatinine Estimated GFR BUN/Creatinine Ratio Glucose Calcium Magnesium Total Bilirubin AST ALT Alkaline Phosphatase Total Protein Albumin Globulin Albumin/Globulin Ratio Urine Color Yellow Urine Appearance Clear Urine pH 7.0 Ur Specific [place] 1.015 Urine Protein Negative Urine Glucose (UA) Negative Urine Ketones Negative Urine Occult Blood 2+ H Urine Nitrate Negative Urine Bilirubin Negative Urine Urobilinogen 1.0 Ur Leukocyte Esterase Negative Urine RBC 5-10/hpf H Urine WBC None seen Ur Renal Epithelial Cell 1-5/hpf H Urine Bacteria None seen Ur Culture Indicated? Cult not indicated SARS-CoV-2 (PCR) 06/19/22 08:10 WBC RBC Hgb Hct MCV MCH MCHC RDW Plt Count Neut % (Auto) Lymph % (Auto) Lau[place] % (Auto) Eos % (Auto) Baso % (Auto) Neut # (Auto) Lymph # (Auto) [place] # (Auto) Eos # (Auto) Baso # (Auto) PT INR APTT Sodium 140 Potassium 3.8 Chloride 105 Carbon Dioxide 33 H BUN 14 Creatinine 0.84 Estimated GFR > 60 BUN/Creatinine Ratio 16.7 Glucose 109 Calcium 8.5 Magnesium 2.1 Total Bilirubin AST ALT Alkaline Phosphatase Total Protein Albumin Globulin Albumin/Globulin Ratio Urine Color Urine Appearance Urine pH Ur Specific [place] Urine Protein Urine Glucose (UA) Urine Ketones Urine Occult Blood Urine Nitrate Urine Bilirubin Urine Urobilinogen Ur Leukocyte Esterase Urine RBC Urine WBC Ur Renal Epithelial Cell Urine Bacteria Ur Culture Indicated? SARS-CoV-2 (PCR) [facility] Medical History Asthma Atrial fibrillation BPH (benign prostatic hyperplasia) Cervical spine disease CHF (congestive heart failure) Dementia Disease of spine Facial basal cell cancer Hearing loss Hepatitis Hyperlipidemia Jaundice Lumbar stenosis with neurogenic claudication Osteoarthritis Shoulder pain Vision disorder Surgical History Anesthesia History of cataract removal with insertion of prosthetic lens History of discectomy (~2001) History of fusion of cervical spine (~2001) History of lumbar laminectomy (~2001) Family History Mother Cancer Brother History of kidney cancer Sister History of heart disease Social History household members: none Smoking Status: Never smoker Assessment & Plan Assessment & Plan narrative: Bassam snell is an 87-year-old male who lives in a memory care center with a past medical history of chronic atrial fibrillation without anticoagulation, CHF, dementia moderate with associated agitation, frequent falls, BPH, and cervical spine disease who was transported to the ED following a ground level fall resulting in a right intertrochanteric femur fracture. He is admitted to the hospitalist service with Dr. Mascorro to consult for surgery. Surgery planned for possibly later today or tomorrow. 1. Ground level fall, history of frequent falls, resulting in right intratrochanteric femur fracture, acute on chronic, present on admission, pathologic fracture given nature of fall. -possible OR today or tomorrow for definitive repair with orthopedics. -Reynoso placed by ED, I&O q.12 -D5 NS at 60 cc/HR -patient on strict fall precautions -pain management will continue hydrocodone, gabapentin, meloxicam 2. Essential hypertension, hypertensive urgency, with chronic atrial fibrillation without anticoagulation, acute on chronic, present on admission -admitting BP 190/91, repeat 226/116, given 25 mg metoprolol, likely elevated in setting of pain -continue digoxin, metoprolol, holding Lasix, continue K+ 3. Dementia, moderate, with agitation, acute on chronic, present on admission -continue Seroquel -aki Pond and his will remain at bedside 4. Malnutrition, mild, acute on chronic, present on admission -BMI 23.3 -patient's malnutrition places them at high risk for medical and surgical complications in relation to acute illness/chronic illness. This increases the difficulty in complexity of medical management and increases the chances poor outcomes such as mortality and morbidity as well as impaired wound healing, and immune suppression. -No dietary consult ordered due to patient's moderate dementia Code status: DNR Surrogate decision maker: Aki SRINIVASAN COVGLADYS PCR: Negative DVT/VTE prophylaxis: Holding medication, SCD on left only Disposition: Inpatient, possible SNF vs return to memory care depending on PT / OT evaluations. Discussed with orthopedic surgery, additional history from family at bedside. Quality VTE Deep Vein Thrombosis/Pulmonary Embolism Present on Admission: No
[2022-06-19] MEDS: HYDROMORPHONE 0.5 MG INJ IV ×3 (10:42→23:49)
--- NOTE | 2022-06-19 10:52 | CM.DANOTE ---
Addendum entered by TATE Owens 06/20/22 10:22: Correction: [facility] DOES NOT have contract with [facility]. [facility] does have contract. Additional referrals need to be sent, pls review w/family. Patient scheduled for the OR today, will be here over the weekend NINA Addendum entered by TATE Owens 06/20/22 08:11: ADD: [facility] is contracted with [facility] and has this referral, [facility] also contracted and sent referral as back up- family agreeable. Patient awaiting surgery on his hip for alignment and stabilization NINA Original Note: Initial DCP Assessment Note 87 yo male, demented, resident of [facility] unit, arrives after fall at home with subsequent hip fx- requiring repair. OR either later this evening or tomorrow Met w/patient's son Salty and LAURY Grimaldo to introduce self and role. Both appear overwhelmed, LAURY states she is an RN and hopes to speak with an orthopedist to discuss imaging. Son is DPOA, they live here in [place] Briefly discussed discharge planning process and likelihood that patient will require SNF for recovery. Reviewed MCR choice list and family would like more information re which facility would contract with patient's [facility]. Family hopeful patient can remain as close to them as possible ie [facility] aware that family waiting to speak with someone from the Ortho team and this has already been addressed with the family MariaaALLYN, kindly agreed to research patient's SNF options with the [facility]. CM team following closely for continued assessment of need and coordination of DCP TATE Abel Discharge Planning/Care Management CM Discharge Assessment Start: 06/19/22 10:43 Freq: Status: Active Protocol: Document 06/19/22 10:43 NINA (Rec: 06/19/22 10:52 NINA [id number]) Discharge Planning Assessment Assigned Slide Fasteners Inspector TATE Hinojosa DPOA/Assigned Designee Name Salty Cox, son/DPOA Contact Information [phone] Advance Directives? Yes: POLST Advance Directives on File Yes History Provided By Family Member,Medical Record Prior Living Arrangements Assisted Living Comment Lives at [facility] Household Members none Type of transporation used prior to Relies on Others admit Facility Name Admitted From: [facility] Willing to Return to Facility? Yes Independent with ADL's No: Ambulates w/ FWW at baseline Is patient alert and oriented? No: Demented Needs Assistance With Bathing,Grooming,Meal Prep, Toileting,Managing Medications ,Home Chores / Shopping Comment Son states patient has been more sedentary lately Patient/Family Preference [facility] Facility Barriers to Discharge Yes Comment 87 yo demented man now with hip fracture in need of stabilization and repair. SNF needed for recovery and care s /p hip repair Discharge Plan [facility] Transportation Arrangement TBD If patient plan is SNF: Has PASSR been Yes completed? Medicare Choice List Provided Yes Medicare choice list reviewed on family electronic tablet with SNF/HH Preference Hopeful to stay close to [place], however, son/DIL explain they would be open to most SNF options that would accept patient and his insurance
[2022-06-19] MEDS: LORazepam 2 MG/ML INJ 0.25 MG IV (12:48)
--- NOTE | 2022-06-19 13:18 | P.PN_ITS ---
Subjective Subjective Date Patient Seen: 06/19/22 Time Patient Seen: 13:18 Interval history: Patient is sitting up in bed fidgeting with his sheets. His son and daug hter-in-law, Carlos, are at bedside. Information taken from family members as patient's dementia interferes with history taking. Salty and Re express their frustration that they have not been shown the hip xrays and have little information about the plan for the patient's care moving forward. Re states that she's a nurse. We discussed that surgery has been recommended by the family and consumer education teacher orthopedic surgeon, Dr. Mascorro, and surgery time is pending. They would like to know when Dr. Mascorro will come see the patient. I relayed that Dr. Mascorro is in surgery today and I am unsure when she will be in the hospital. Salty and Re would also like to know how long the recovery time will be after surgery. We discussed that the patient will need rehabilitation after surgery and it is difficult to determine when the patient will safely return to his baseline ambulation. Exam Vital Signs (past 8 hours): - 06/19/22 07:55 06/19/22 09:16 06/19/22 09:17 Temperature 97.3 F L Pulse Rate 58 L 59 L Respiratory Rate 16 Blood Pressure 181/87 H 181/87 H 181/87 H Pulse Oximetry 94 Oxygen Flow Rate 0 Oxygen Delivery Method Room Air Oxygen Flow Rate 0 Narrative Exam Narrative: Awake, alert, disoriented. Appears to be restless and fidgeting. Right hip shortened and externally rotated. No significant swelling, bruising, or erythema. No abrasions or open wounds. Patient unable to follow commands though spontaneous movements of bilateral lower extremities indicate strength is intact. Bilateral calves soft, compressible, nontender with no palpable cords or masses. Objective Labs 06/19/22 08:10 06/19/22 08:10 Labs: Laboratory Results - last 24 hr 06/18/22 06/18/22 06/18/22 20:30 20:30 22:58 WBC 8.8 RBC 4.25 L Hgb 13.3 L Hct 39.5 L MCV 93.0 MCH 31.3 MCHC 33.6 RDW 14.8 Plt Count 124 L Neut % (Auto) 67.3 Lymph % (Auto) 17.0 L [place] % (Auto) 10.2 Eos % (Auto) 4.8 H Baso % (Auto) 0.7 Neut # (Auto) 5900 Lymph # (Auto) 1500 [place] # (Auto) 900 Eos # (Auto) 400 Baso # (Auto) 100 PT INR APTT Sodium 139 Potassium 4.1 Chloride 105 Carbon Dioxide 29 BUN 17 Creatinine 0.84 Estimated GFR > 60 BUN/Creatinine Ratio 20.2 Glucose 106 Calcium 8.6 Magnesium Total Bilirubin 0.8 AST 31 ALT 21 Alkaline Phosphatase 62 Total Protein 6.2 L Albumin 3.5 Globulin 2.7 Albumin/Globulin Ratio 1.3 Urine Color Urine Appearance Urine pH Ur Specific Adkins Urine Protein Urine Glucose (UA) Urine Ketones Urine Occult Blood Urine Nitrate Urine Bilirubin Urine Urobilinogen Ur Leukocyte Esterase Urine RBC Urine WBC Ur Renal Epithelial Cell Urine Bacteria Ur Culture Indicated? SARS-CoV-2 (PCR) Negative 06/19/22 06/19/22 06/19/22 00:00 08:10 08:10 WBC 11.1 H RBC 4.28 L Hgb 13.5 Hct 39.8 L MCV 93.0 MCH 31.6 MCHC 33.9 RDW 15.0 H Plt Count 109 L Neut % (Auto) 75.0 Lymph % (Auto) 10.4 L [place] % (Auto) 10.4 Eos % (Auto) 3.5 Baso % (Auto) 0.7 Neut # (Auto) 8300 H Lymph # (Auto) 1200 [place] # (Auto) 1200 H Eos # (Auto) 400 Baso # (Auto) 100 PT 13.1 H INR 1.1 APTT 35 Sodium Potassium Chloride Carbon Dioxide BUN Creatinine Estimated GFR BUN/Creatinine Ratio Glucose Calcium Magnesium Total Bilirubin AST ALT Alkaline Phosphatase Total Protein Albumin Globulin Albumin/Globulin Ratio Urine Color Yellow Urine Appearance Clear Urine pH 7.0 Ur Specific Adkins 1.015 Urine Protein Negative Urine Glucose (UA) Negative Urine Ketones Negative Urine Occult Blood 2+ H Urine Nitrate Negative Urine Bilirubin Negative Urine Urobilinogen 1.0 Ur Leukocyte Esterase Negative Urine RBC 5-10/hpf H Urine WBC None seen Ur Renal Epithelial Cell 1-5/hpf H Urine Bacteria None seen Ur Culture Indicated? Cult not indicated SARS-CoV-2 (PCR) 06/19/22 08:10 WBC RBC Hgb Hct MCV MCH MCHC RDW Plt Count Neut % (Auto) Lymph % (Auto) [place] % (Auto) Eos % (Auto) Baso % (Auto) Neut # (Auto) Lymph # (Auto) [place] # (Auto) Eos # (Auto) Baso # (Auto) PT INR APTT Sodium 140 Potassium 3.8 Chloride 105 Carbon Dioxide 33 H BUN 14 Creatinine 0.84 Estimated GFR > 60 BUN/Creatinine Ratio 16.7 Glucose 109 Calcium 8.5 Magnesium 2.1 Total Bilirubin AST ALT Alkaline Phosphatase Total Protein Albumin Globulin Albumin/Globulin Ratio Urine Color Urine Appearance Urine pH Ur Specific Adkins Urine Protein Urine Glucose (UA) Urine Ketones Urine Occult Blood Urine Nitrate Urine Bilirubin Urine Urobilinogen Ur Leukocyte Esterase Urine RBC Urine WBC Ur Renal Epithelial Cell Urine Bacteria Ur Culture Indicated? SARS-CoV-2 (PCR) [facility] Medical History Asthma Atrial fibrillation BPH (benign prostatic hyperplasia) Cervical spine disease CHF (congestive heart failure) Dementia Disease of spine Facial basal cell cancer Hearing loss Hepatitis Hyperlipidemia Jaundice Lumbar stenosis with neurogenic claudication Osteoarthritis Shoulder pain Vision disorder Surgical History Anesthesia History of cataract removal with insertion of prosthetic lens History of discectomy (~2001) History of fusion of cervical spine (~2001) History of lumbar laminectomy (~2001) Family History Mother Cancer Brother History of kidney cancer Sister History of heart disease Social History household members: none Smoking Status: Never smoker Assessment & Plan Assessment & Plan narrative: Per Dr. Mascorro: right intertroch hip fx from GLF, osteoporotic fx complicated by advance age, dementia indicated for surgical fixation to restore alignment and stability to allow early mobilization and ambulation and reduce the morbidity associated with pro longed immobility. the POAs understand the significant morbidity and mortality associated with a hip fracture and that without surgery return to ambulation would not be expected. Surgical fixation is recommended. risks include infection, perioperative blood loss, possible requirement of transfusion, pneumonia, heart attack, stroke, paralysis, . plan for surgery 06/19 evening or 06/20 depending on operating room and surgeon availablity and patient optimization. As of now, surgery planned for 06/20/22 at 1600. Patient diet changed to NPO at midnight 06/20/22. Preoperative pain medications per internal medicine. Family has been updated about planned date and time for surgery. Quality VTE Deep Vein Thrombosis/Pulmonary Embolism Present on Admission: No
[2022-06-19] MEDS: LORazepam 2 MG/ML INJ 1 MG IV ×2 (16:39→20:25)
--- NOTE | 2022-06-19 22:10 | PC.NURSE ---
Mouth breathing, taking off his Oxygen . SPO2 in RA 88-90%, re-applied his 02 @ 1 liter. Will cont. POC & monitor.
[2022-06-20] VITALS (18 sets, daily range): BP systolic 113–213; BP diastolic 58–172; PULSE 57–131; RESP 16–22; TEMP 36.2–36.9; O2SAT 91–99; BMI 23.2
--- NOTE | 2022-06-20 | DI.RAD.S_ITS ---
PROCEDURE: XR HIP W PEL IF DONE RT 4V INDICATIONS: INF RIGHT TECHNIQUE: AP pelvis with lateral view(s) of the right hip(s). COMPARISON: [facility], , XR HIP W PEL IF DONE RT 2V, 06/18/2022, 20:42. FINDINGS: Intraoperative images were obtained for right fixation hardware placement for hip fracture. IMPRESSION: Intraoperative images were obtained for right hip fracture fixation hardware placement. Please see operative report for full details. Dictated by: Jayden Beatty M.D. on 06/20/2022 at 21:15 Approved by: Jayden Beatty M.D. on 06/20/2022 at 21:15
--- NOTE | 2022-06-20 00:45 | PC.NURSE ---
B/P 213/94, HR 81 LUCINA Gavin notified. Pt. too sleepy to swallow PO meds. Will implement B/P IV med. after clarified by night pharmacist. Will cont. POC & monitor.
[2022-06-20] MEDS: METOPROLOL TARTRATE 5 MG/5 ML INJ 2 MG IV (00:58)
[2022-06-20] MEDS: HYDROMORPHONE 0.5 MG INJ IV ×4 (05:07→22:47)
--- NOTE | 2022-06-20 05:39 | PC.NURSE ---
Pt. was very restless beginning this shift. Was spitting out his pills, pudding & water. Trying to pull his IV, gama cath out & grabbing any person that he can reached. Medicated with 1 mg. of Lorazepam IV, but still restless after the Lorazepam. Reassessed FLACC pain level it was 7/10. 0.5 mg. of IVP Dilaudid admin. He finally settled to rest & slept, while he was sleeping we're able to changed his clothes to a hospital gown. He slept from 0030 to 0500, then he wakes up moaning & trying to pull his IV & gama again. Medicated with 0.5 mg. of Dilaudid & B/P 147/75 with heart rate of 63. Will continue plan of care & monitor.
[2022-06-20 05:59] LABS: Add Manual Diff / Slide Review NO; Basophils Absolute Auto 100 /uL (0-100); Basophils Percent Auto 0.5 % (0-2); Eosinophils Absolute Auto 200 /uL (0-450); Eosinophils Percent Auto 1.1 % (2-4); Hematocrit 37.9 % (41-53); Hemoglobin 12.7 g/dL (13.5-17.5); Lymphocytes Absolute Auto 1000 /uL (1100-4500); Lymphocytes Percent Auto 6.9 % (25-40); Mean Corpuscular HGB Conc 33.6 % (30-36); Mean Corpuscular Volume 92.3 fL (80-100); Monocytes Absolute Auto 1300 /uL (0-900); Monocytes Percent Auto 9.4 % (3-14); Neutrophils Absolute Auto 11800 /uL (1500-7000); Neutrophils Percent Auto 82.1 % (50-75); Platelet Count 104 X10^3/uL (150-400); Red Blood Cell Count 4.11 X10^6/uL (4.5-5.9); Red Cell Distribution Width 14.5 % (11.6-14.8); White Blood Cell Count 14.3 X10^3/uL (4.5-11.0)
[2022-06-20 06:02] LABS: INR 1.3 (0.9-1.3)
[2022-06-20 06:08] LABS: BUN Creatinine Ratio 17.6 (6-22); Blood Urea Nitrogen 12 mg/dL (9-20); Calcium 8.2 mg/dL (8.4-10.2); Carbon Dioxide 29 mmol/L (22-32); Chloride 103 mmol/L (98-107); Estimated Glomerular Filt Rate > 60 mL/min (>60); Glucose 134 mg/dL (80-110); HEMOLYSIS < 15 (0-50); Potassium 3.8 mmol/L (3.4-5.1); Sodium 137 mmol/L (137-145)
[2022-06-20] MEDS: DEXTROSE 5%-0.9% NS 1,000 ML 60 ML IV (07:41)
--- NOTE | 2022-06-20 11:19 | P.PN_ITS ---
Subjective Subjective Interval history: 87 M with PMH of afib, not on AC, dementia admitted with a ground level fall and R hip fracture. Patient confused, and hard of hearing. Denies any pain currently, Planning for surgery today. Exam Vital Signs (past 8 hours): - 06/20/22 05:48 06/20/22 07:49 Temperature 98.4 F 98.3 F Pulse Rate 71 67 Respiratory Rate 20 18 Blood Pressure 147/75 H 166/84 H Pulse Oximetry 93 94 Oxygen Flow Rate 1 1 Oxygen Delivery Method Room Air Oxygen Flow Rate 1 Narrative Exam Narrative: General: Patient is a well-developed, well-nourished elderly male, confused but resting without pain or discomfort, in no distress at this time. HEENT: Normocephalic, atraumatic, extraocular muscles intact, oral pharynx is clear and mucous membranes are moist. Chest: Breathing without nasal flaring, retractions, or tachypneic labored Lungs: Auscultation of all lung christian are clear without adventitious sounds, wheezes, rhonchi, or rales. Cardio: regular rate and rhythm without murmur, rubs, or gallops, no carotid bruit, no cardiac pulsations present. Abdomen: Soft nontender, negative for organomegaly, or masses. Bowel sounds are hypoactive present in all 4 quadrants without guarding or rebound, no CVA tenderness. Musculoskeletal: Right leg shortened, externally rotated, intact radial and pedal pulses are normal. Skin: Warm dry and intact without rashes, ulcerations or petechiae. Neuro: Patient confused but able to answer simple questions, unable to state name or date of though he is hard of hearing, Moves all extremities, sensation to touch intact, no gross deficits noted of cranial nerves. Psych: Patient has a well-kept appearance, confused secondary to dementia. Resting calmly in no pain in bed. Objective Labs 06/20/22 05:35 06/20/22 05:35 Labs: Laboratory Results - last 24 hr 06/20/22 06/20/22 06/20/22 05:35 05:35 05:35 WBC 14.3 H RBC 4.11 L Hgb 12.7 L Hct 37.9 L MCV 92.3 MCH 31.0 MCHC 33.6 RDW 14.5 Plt Count 104 L Neut % (Auto) 82.1 H Lymph % (Auto) 6.9 L [place] % (Auto) 9.4 Eos % (Auto) 1.1 L Baso % (Auto) 0.5 Neut # (Auto) 19393 H Lymph # (Auto) 1000 L [place] # (Auto) 1300 H Eos # (Auto) 200 Baso # (Auto) 100 PT 15.0 H INR 1.3 Sodium 137 Potassium 3.8 Chloride 103 Carbon Dioxide 29 BUN 12 Creatinine 0.68 Estimated GFR > 60 BUN/Creatinine Ratio 17.6 Glucose 134 H Calcium 8.2 L PFSH Medical History Asthma Atrial fibrillation BPH (benign prostatic hyperplasia) Cervical spine disease CHF (congestive heart failure) Dementia Disease of spine Facial basal cell cancer Hearing loss Hepatitis Hyperlipidemia Jaundice Lumbar stenosis with neurogenic claudication Osteoarthritis Shoulder pain Vision disorder Surgical History Anesthesia History of cataract removal with insertion of prosthetic lens History of discectomy (~2001) History of fusion of cervical spine (~2001) History of lumbar laminectomy (~2001) Family History Mother Cancer Brother History of kidney cancer Sister History of heart disease Social History household members: none Smoking Status: Never smoker Assessment & Plan Assessment & Plan narrative: Bassam snell is an 87-year-old male who lives in a memory care center with a past medical history of chronic atrial fibrillation without anticoagulation, CHF, dementia moderate with associated agitation, frequent falls, BPH, and cervical spine disease who was transported to the ED following a ground level fall resulting in a right intertrochanteric femur fracture. He is admitted to the hospitalist service with Dr. Mascorro to consult for surgery. Surgery planned for today 1. Ground level fall, history of frequent falls, resulting in right intratrochanteric femur fracture, acute on chronic, present on admission, pathologic fracture given nature of fall. -awaiting definitive repair with orthopedics, planned for today. -Reynoso placed by ED, I&O q.12 -D5 NS at 60 cc/HR -patient on strict fall precautions -pain management will continue hydrocodone, gabapentin, meloxicam 2. Essential hypertension, hypertensive urgency, with chronic atrial fibrillation without anticoagulation, acute on chronic, present on admission -admitting BP 190/91, repeat 226/116, given 25 mg metoprolol, likely elevated in setting of pain -continue digoxin, metoprolol, holding Lasix, continue K+ 3. Dementia, moderate, with agitation, acute on chronic, present on admission -continue Seroquel, also getting ativan prn while NPO 4. Malnutrition, mild, acute on chronic, present on admission -BMI 23.3 -patient's malnutrition places them at high risk for medical and surgical complications in relation to acute illness/chronic illness. This increases the difficulty in complexity of medical management and increases the chances poor outcomes such as mortality and morbidity as well as impaired wound healing, and immune suppression. -No dietary consult ordered due to patient's moderate dementia Code status: DNR Surrogate decision maker: Son Salty BORJA PCR: Negative DVT/VTE prophylaxis: Holding medication, SCD on left only Disposition: Inpatient, possible SNF vs return to memory care depending on PT / OT evaluations. Quality VTE Deep Vein Thrombosis/Pulmonary Embolism Present on Admission: No
--- NOTE | 2022-06-20 13:44 | PM.PREOP ---
Pre-operative Note COVID-19 COVID-19 status: Negative Interval Note History & Physical reviewed/Exam performed by Physician: Yes Changes to H&P: No
--- NOTE | 2022-06-20 13:44 | CM.DPC ---
DCP Cont: Spoke to Zahraa at [facility]. She indicated, she had not received the referral. Confirmed that they are contracted with patient's insurance. Went ahead and faxed over the face sheet, H&P, recent progress notes, and DC land use planner assessment. P.T. pending, as surgery is scheduled for this pm. P: DCP working on plan, faxed over the referral to Zahraa at [facility], will not be able to initiate auth until patient has surgery, and can work with P.T. Hailee Azul RN/Switchboard Installer
[2022-06-20] MEDS: LACTATED RINGERS 1,000 ML 42 ML IV (16:43)
--- NOTE | 2022-06-20 17:25 | PC.NURSE ---
Pt is taken via bed by preop RN's down for surgery just prior to 4 pm. POA son accompanied to preop. Family in room very supportive.
[2022-06-20] MEDS: CEFAZOLIN 2 GM/100 ML PREMIX 100 ML IV (19:10)
--- NOTE | 2022-06-20 19:48 | SUR.OPER ---
Supine on padded [place] table with bilateral legs secured in padded positioning boots and suspended in positioning spars, operative leg in traction per surgeon. Head on one pillow. Arm on non-operative side secured on padded armboard <90 degrees abduction. Arm on operative side padded and resting across chest then secured with tape over sheet. Padded perineal post in place per surgeon.
[2022-06-20] MEDS: BUPIVACAINE 0.25% (PF) 30 ML, EPINEPHrine 0.15 MG INJ (19:54)
[2022-06-20] MEDS: TRANEXAMIC ACID 1,000 MG in SODIUM CHLORIDE 0.9% 100 ML 200 MG IV (20:29)
--- NOTE | 2022-06-20 20:56 | PM.OP.1 ---
Operative Date/Time/Diagnoses Date of procedure: 06/20/22 Time of procedure: 19:30 Pre-op diagnosis: Right intertrochanteric hip fracture Osteoporotic hip fracture Dementia Post-op diagnosis: same Procedure & Clinicians Procedure: Cephalomedullary nail fixation intertrochanteric fracture right CPT code 34962 Same procedure as scheduled: Yes Indications: Patient is a 87-year-old male that had a ground level fall and sustained a displaced intertrochanteric right hip fracture. He was indicated for surgical fixation to promote mobility and reduce the morbidity and mortality associated prolonged bed rest. He has significant comorbidities including dementia. His son Salty is his power of respite coordinator. Lives in memory Care but typically ambulates with a walker at baseline. The risks and benefits of the procedure have been discussed with the POA and they were given the opportunity to ask questions. The risks of surgery include but are not limited to infection, malunion, nonunion, persistence of pain, damage to nerves and blood vessels, posttraumatic arthritis, DVT, PE, cardiopulmonary complications and . The POA expressed a thorough understanding of the risks and benefits of surgery and has elected to proceed. Consent was signed. Surgeon: Shakira Mascorro Click Yes if Unassisted: Yes Anesthesia Type: General and Local Operative Notes Findings: Displaced intertrochanteric hip fracture, right Closure Type: primary Specimen(s): none sent Prosthetic devices, grafts, tissues, transplants, or devices: Alvarez and nephew triGen intertan nail short 11.5 x 18cm 105 mm lag screw and 100 mm compression screw 35 x 5 mm distal locking screw Estimated Blood Loss (mL): 150 Blood products transfused: none Tourniquet time (min): 0 Procedure in detail: Procedure cephalomedullary nail intertrochanteric hip fracture the CPT code 78164 Side: Implant Alvarez and Nephew 11.5 x 18 cm cephalomedullary nail intertan Procedure: The patient was seen and the site of surgery was marked in the preoperative area. This was the right hip. Patient was brought to the operating room and placed on the operative table and general anesthesia was administered. The patient was positioned on the fracture table in standard fashion with a well-padded boots and a padded peroneal post. An SCD was on the contralateral leg. A formal time-out was called to confirm the patient's side and site of surgery administration of preoperative antibiotics. Tranexamic acid was also administered to reduce blood loss. All were in agreement. The operative leg was then gently manipulated under fluoroscopic guidance to obtain a closed reduction in near anatomic alignment. At this point the operative extremity was prepped and draped in the standard sterile manner. The starting point was marked out using fluoroscopic guidance and marked on the skin. A guidewire was placed percutaneously and the starting point was obtained. Incision was made over the guidewire. An opening drill was inserted to the level of the lesser trochanter. The opening Reamer and guidewire were then removed. An 18 cm cephalomedullary nail was selected. The 11.5 x 18 cm nail was then slid into the canal. The nail was advanced to the proper depth and rotation. The guide for the cephalomedullary screw was then inserted into the external handle. An incision was made and the guide was placed down to the bone. A guidewire was placed to the proper depth into the femoral head and this was confirmed on AP and lateral imaging. The tip apex distance was evaluated and appropriate. This was measured. Next the outer cortex was drilled for the interlocking screw and the anti rotation bar was placed. The cephalomedullary screw length was then measured off the drill again. A 105 mm lag screw was selected and the corresponding interlocking compression screw. A guidewire was then over drilled and the lag screw placed. The anti rotation bar was removed and then the locking compression screws were placed and confirmed on biplanar fluoroscopy. The integrated compression screw was tightened. Attention was turned to the distal interlock. This was placed with the guide in the standard technique. AP and lateral images were captured in the or confirming alignment hardware placement. Wounds were irrigated and closed in layers with 2-0 Vicryl in the deep fascia.4-0 Monocryl in the subcutaneous tissue and susan in the skin. 0.25% Marcaine with epinephrine was injected into the incision sites for local anesthetic. Sterile dressings were applied. There no immediate complications. Surgical counts were correct. The patient tolerated the procedure well was taken to recovery room. Complications: none Post-operative Condition: stable Disposition: PACU Plan for aftercare: Weightbear as tolerated. No hip precautions. Activities as tolerated. Recommend aspirin 81 mg b.i.d. for DVT prophylaxis and SCDs. Patient has dementia and fall risk so would avoid higher power anticoagulants. Discharge by primary team. Likely snf. Monitor hemoglobin and hematocrit postoperatively may require transfusion if needed. Encourage incentive spirometry. Follow-up [facility] in 2 weeks for wound check, staple removal and repeat x-rays AP pelvis and right lateral hip. Keep dressing clean dry and intact. May change of saturated.
[2022-06-20] MEDS: SODIUM CHLORIDE 0.9% 1,000 ML 60 ML IV (22:46)
[2022-06-20] MEDS: LORazepam 2 MG/ML INJ 1 MG IV (23:57)
[2022-06-21] VITALS (17 sets, daily range): BP systolic 129–153; BP diastolic 70–112; PULSE 75–132; RESP 14–22; TEMP 36.1–37.1; O2SAT 92–96
[2022-06-21] MEDS: CEFAZOLIN 2 GM/100 ML PREMIX 100 ML IV ×2 (03:03→11:24)
[2022-06-21] MEDS: LORazepam 2 MG/ML INJ 1 MG IV ×3 (07:57→20:36)
[2022-06-21 08:16] LABS: Add Manual Diff / Slide Review NO; Basophils Absolute Auto 0 /uL (0-100); Basophils Percent Auto 0.2 % (0-2); Eosinophils Absolute Auto 0 /uL (0-450); Hematocrit 38.1 % (41-53); Hemoglobin 12.8 g/dL (13.5-17.5); Lymphocytes Absolute Auto 900 /uL (1100-4500); Lymphocytes Percent Auto 5.4 % (25-40); Mean Corpuscular HGB Conc 33.5 % (30-36); Mean Corpuscular Hemoglobin 31.1 PG (26-34); Mean Corpuscular Volume 92.9 fL (80-100); Monocytes Absolute Auto 1000 /uL (0-900); Monocytes Percent Auto 6.2 % (3-14); Neutrophils Absolute Auto 13800 /uL (1500-7000); Neutrophils Percent Auto 88.2 % (50-75); Platelet Count 108 X10^3/uL (150-400); Red Cell Distribution Width 14.5 % (11.6-14.8); White Blood Cell Count 15.6 X10^3/uL (4.5-11.0)
[2022-06-21] MEDS: HYDROMORPHONE 0.5 MG INJ IV ×4 (08:28→20:36)
[2022-06-21 08:48] LABS: BUN Creatinine Ratio 22.2 (6-22); Blood Urea Nitrogen 14 mg/dL (9-20); Calcium 8.2 mg/dL (8.4-10.2); Carbon Dioxide 25 mmol/L (22-32); Chloride 104 mmol/L (98-107); Estimated Glomerular Filt Rate > 60 mL/min (>60); Glucose 144 mg/dL (80-110); HEMOLYSIS < 15 (0-50); Potassium 3.9 mmol/L (3.4-5.1); Sodium 137 mmol/L (137-145)
--- NOTE | 2022-06-21 09:16 | PM.PNPO.1 ---
Subjective Subjective Date Patient Seen: 06/21/22 Time Patient Seen: 09:17 Interval history: Pt sleeping, unarousable to voice. Per RN and MAR, recently received Ativan and Dilaudid. Exam Vital Signs (past 8 hours): - 06/21/22 04:15 06/21/22 08:01 06/21/22 08:20 Temperature 97.0 F L 98.0 F Pulse Rate 75 120 H 120 H Respiratory Rate 18 16 Blood Pressure 129/70 133/112 H 142/91 H Pulse Oximetry 95 96 Oxygen Delivery Method Oxygen Flow Rate 2 06/21/22 08:59 06/21/22 09:14 Temperature Pulse Rate 87 Respiratory Rate Blood Pressure 142/71 H Pulse Oximetry 95 Oxygen Delivery Method Nasal Cannula Oxygen Flow Rate 2 Oxygen Delivery Method Nasal Cannula Oxygen Flow Rate 2 Narrative Exam Narrative: Distal dressing with some old drainage, dressings placed intraoperatively otherwise CDI. Pt moving foot involuntarily, distal leg warm, no edema. Objective Labs 06/21/22 08:05 06/21/22 08:05 Labs: Laboratory Results - last 24 hr 06/21/22 06/21/22 08:05 08:05 WBC 15.6 H RBC 4.10 L Hgb 12.8 L Hct 38.1 L MCV 92.9 MCH 31.1 MCHC 33.5 RDW 14.5 Plt Count 108 L Neut % (Auto) 88.2 H Lymph % (Auto) 5.4 L [place] % (Auto) 6.2 Eos % (Auto) 0.0 L Baso % (Auto) 0.2 Neut # (Auto) 60722 H Lymph # (Auto) 900 L [place] # (Auto) 1000 H Eos # (Auto) 0 Baso # (Auto) 0 Sodium 137 Potassium 3.9 Chloride 104 Carbon Dioxide 25 BUN 14 Creatinine 0.63 L Estimated GFR > 60 BUN/Creatinine Ratio 22.2 H Glucose 144 H Calcium 8.2 L PFSH Medical History Asthma Atrial fibrillation BPH (benign prostatic hyperplasia) Cervical spine disease CHF (congestive heart failure) Dementia Disease of spine Facial basal cell cancer Hearing loss Hepatitis Hyperlipidemia Jaundice Lumbar stenosis with neurogenic claudication Osteoarthritis Shoulder pain Vision disorder Surgical History Anesthesia History of cataract removal with insertion of prosthetic lens History of discectomy (~2001) History of fusion of cervical spine (~2001) History of lumbar laminectomy (~2001) Family History Mother Cancer Brother History of kidney cancer Sister History of heart disease Social History household members: none Smoking Status: Never smoker Assessment & Plan Post-op Assessment and plan (1) Status post hip surgery: Assessment and Plan narrative: Weightbear as tolerated on right leg.? No hip precautions.? Activities as tolerated.? Recommend aspirin 81 mg b.i.d. for DVT prophylaxis and SCDs.? Discharge by primary team.? Likely long-term.? Monitor hemoglobin and hematocrit postoperatively may require transfusion if needed.? Encourage incentive spirometry.? Follow-up [facility] in 2 weeks for wound check, staple removal and repeat x-rays AP pelvis and right lateral hip.? Keep dressing clean dry and intact.? May change if saturated. Postoperative Procedures: Procedures Operation Date: 06/20/22 16:00 Actual Procedure Side Surgeon p Intramedullary Nailing Femur Right Shakira Mascorro MD Postoperative day: 1 Quality VTE Deep Vein Thrombosis/Pulmonary Embolism Present on Admission: No
--- NOTE | 2022-06-21 09:22 | PT.IPNOTE ---
Hold AM PT eval per nsng due to confusion/restless/pulling at lines when awake; currently given IV ativan and not appropriate to participate with PT safely.
--- NOTE | 2022-06-21 10:25 | PM.PN.1 ---
Subjective Subjective Interval history: Patient is 1 day post op Cephalomedullary nail fixation intertrochanteric fracture right side. Per nursing has been spitting out oral medication. Order written for IV lopressor if needed for both tachycardia and elevated systolic hypertension. Exam Vital Signs (past 8 hours): - 06/21/22 04:15 06/21/22 08:01 06/21/22 08:20 Temperature 97.0 F L 98.0 F Pulse Rate 75 120 H 120 H Respiratory Rate 18 16 Blood Pressure 129/70 133/112 H 142/91 H Pulse Oximetry 95 96 Oxygen Delivery Method Oxygen Flow Rate 2 06/21/22 08:59 06/21/22 09:14 Temperature Pulse Rate 87 Respiratory Rate Blood Pressure 142/71 H Pulse Oximetry 95 Oxygen Delivery Method Nasal Cannula Oxygen Flow Rate 2 Oxygen Delivery Method Nasal Cannula Oxygen Flow Rate 2 Narrative Exam Narrative: General:? Patient is a well-developed, well-nourished elderly male, currently sleeping peacefully and not aroused for the examination. HEENT:? Normocephalic, atraumatic, trachea midline. Chest:? Breathing without nasal flaring, retractions, or tachypneic labored Lungs:? Auscultation of all lung christian are clear without adventitious sounds, wheezes, rhonchi, or rales. Cardio:? regular rate and rhythm without murmur, rubs, or gallops, no carotid bruit, no cardiac pulsations present. Abdomen:? Soft nontender, negative for organomegaly, or masses.? Bowel sounds are hypoactive present in all 4 quadrants. No tenderness. Musculoskeletal:? Normal extremities on observation. Postop dressing right hip. Skin:? Warm dry and intact without rashes or lesions. Neuro:? Unable to assess due to sleeping. Psych:? Resting calmly in no apparent pain in bed. Objective Labs 06/21/22 08:05 06/21/22 08:05 Labs: Laboratory Results - last 24 hr 06/21/22 06/21/22 08:05 08:05 WBC 15.6 H RBC 4.10 L Hgb 12.8 L Hct 38.1 L MCV 92.9 MCH 31.1 MCHC 33.5 RDW 14.5 Plt Count 108 L Neut % (Auto) 88.2 H Lymph % (Auto) 5.4 L [place] % (Auto) 6.2 Eos % (Auto) 0.0 L Baso % (Auto) 0.2 Neut # (Auto) 28444 H Lymph # (Auto) 900 L [place] # (Auto) 1000 H Eos # (Auto) 0 Baso # (Auto) 0 Sodium 137 Potassium 3.9 Chloride 104 Carbon Dioxide 25 BUN 14 Creatinine 0.63 L Estimated GFR > 60 BUN/Creatinine Ratio 22.2 H Glucose 144 H Calcium 8.2 L PFSH Medical History Asthma Atrial fibrillation BPH (benign prostatic hyperplasia) Cervical spine disease CHF (congestive heart failure) Dementia Disease of spine Facial basal cell cancer Hearing loss Hepatitis Hyperlipidemia Jaundice Lumbar stenosis with neurogenic claudication Osteoarthritis Shoulder pain Vision disorder Surgical History Anesthesia History of cataract removal with insertion of prosthetic lens History of discectomy (~2001) History of fusion of cervical spine (~2001) History of lumbar laminectomy (~2001) Family History Mother Cancer Brother History of kidney cancer Sister History of heart disease Social History household members: none Smoking Status: Never smoker Assessment & Plan Assessment & Plan narrative: 1. Ground level fall, history of frequent falls, resulting in right intratrochanteric femur fracture, acute on chronic, present on admission -history of cervical spine disease,chronic back pain, mild chronic thrombocytopenia (baseline 120-140 platelets) -platelets 124 on presentation, today is 108, H&H 13.3/39.5 on presentation, today is 12.8/38.1 -Dr. Mascorro completed right hip surgery yesterday. -Reynoso placed by ED, I&O q.12 -D5 NS at 60 cc/HR-continue -patient on strict fall precautions -pain management/comfort measures -will continue hydrocodone, gabapentin, meloxicam 2. Essential hypertension, hypertensive urgency, with chronic atrial fibrillation without anticoagulation, acute on chronic, present on admission -admitting BP 190/91, repeat 226/116, HR 63-ordered now dose metoprolol p.o. 25 mg due to letha HR -currently blood pressure 142/71 and heart rate 87 -continue digoxin, metoprolol, holding Lasix, continue K+, however Lopressor has been ordered for intravenous option of treatment of blood pressure and tachycardia since patient has been spitting out oral medications today 3. Dementia, moderate, with agitation, acute on chronic, present on admission -continue Seroquel 4. Malnutrition, mild, acute on chronic, present on admission -BMI 23.3 -patient's malnutrition places them at high risk for medical and surgical complications in relation to acute illness/chronic illness.? This increases the difficulty in complexity of medical management and increases the chances poor outcomes such as mortality and morbidity as well as impaired wound healing, and immune suppression. -No dietary consult ordered due to patient's moderate dementia Follow labs and clinically. Code status:? DNR Surrogate decision maker:? Son Salty SRINIVASAN COVID PCR:? Negative DVT/VTE prophylaxis:? Holding medication, SCD on left only Quality VTE Deep Vein Thrombosis/Pulmonary Embolism Present on Admission: No
--- NOTE | 2022-06-21 12:08 | PT.IPNOTE ---
1150: Attempted PT with family present and nursing. Unable to arouse Pt to safely participate. Used washcloth to wipe face and eyes, sternal rubbing, sat bed position more upright and had family attempt to verbally arouse him. No improvement in arousal beyond moaning. Nsng and PT adjusted Pt in bed to L sidelying with pillow support.
[2022-06-21] MEDS: METOPROLOL TARTRATE 5 MG/5 ML INJ IV ×4 (12:46→18:23)
--- NOTE | 2022-06-21 13:07 | PC.NURSE ---
Addendum entered by Shantell Garza R.N. 06/21/22 17:02: pt started on digoxin to control HR. HR was still in 115-130's after first dose of digoxin, 5mg metoprolol given. Original Note: pt very agitated this morning. he kept pulling his gama. gave 1mg ativan. still trying pull gama and IV. unable to verbalize pain. he did follow commands when I asked him to raise both his arms. gave 0.5 dilaudid for pain, his HR was also 130's. went down to 80's after pain med.
--- NOTE | 2022-06-21 13:21 | CM.DPNOTE ---
Discharge Planning Note: Patient is POD #1 s/p R hip ORIF. Per nurse, patient spits out food and meds. Currently on O2 at 1 LPM, down from 2 liters. Patient lives in a memory care facility, [facility].. Apparently he is combative there and tries to escape. Patient is currently somnolent. Called and spoke with son Salty Cox JAROD ([phone]) and updated him re discharge planning. He is accepting of patient going to [facility], he asked why not [facility]? This DCP explained that [facility] does not accept patient's [employer] [facility] insurance and that [facility] does. He is accepting of this. Left message with Zahraa at [facility] to proceed with the auth, that patient had his surgery yesterday and that we will fax pertinent notes when available. Plan: When medically cleared and if auth goes through, discharge to [facility]. Continue to follow closely and call son with updates as needed. Isabella Sidhu RN/DCP
--- NOTE | 2022-06-21 13:41 | PT-IP ANOTE ---
Per nursing, patient's HR still elevated in 130's and not appropriate to work with therapy. Patient is still obtunded and not eating/taking oral meds. Discussed having nursing staff assist patient to sit EOB when more alert and stable.
--- NOTE | 2022-06-21 14:03 | PC.NURSE ---
Addendum entered by Claudia Contreras R.N. 06/21/22 19:27: Pt remained agitated and combative, with family in the room. HR in 120s-130s, BP 140s, Dr. Nj aware. Digoxin ordered and given. Dilaudid given. Pt resting. HR Afib in 100s-120s, BP 140s. Original Note: Pt restless, pulling at Reynoso and IV, grabbing at staff and family. Will only say, Get me out of here, but occasionally follows simple verbal commands. Post-surgical dressings on right lateral hip mostly CDI with scant, old drainage on one. Pt spits out PO medications, Dr. Nj aware. IV Metoprolol ordered and given x2 for HR sustained over 110. PRN dilaudid and Ativan given in morning d/t agitation, groaning with good results, pt resting quietly. Given in afternoon d/t pt grimacing, groaning. HR and BP remained elevated. PRN Ativan given d/t continued agitation.
[2022-06-21] MEDS: DIGOXIN 500 MCG/2 ML AMPUL IV (15:03)
[2022-06-21] MEDS: SODIUM CHLORIDE 0.9% 1,000 ML 60 ML IV (16:22)
[2022-06-21] MEDS: QUETIAPINE 25 MG TABLET 50 MG PO (20:27)
[2022-06-21] MEDS: DIGOXIN 500 MCG/2 ML AMPUL 250 MCG IV (21:25)
[2022-06-22] VITALS (10 sets, daily range): BP systolic 108–164; BP diastolic 61–113; PULSE 54–150; RESP 16–24; TEMP 36.3–37.1; O2SAT 92–98
[2022-06-22] MEDS: METOPROLOL TARTRATE 5 MG/5 ML INJ IV ×3 (01:44→19:52)
[2022-06-22] MEDS: HYDROMORPHONE 0.5 MG INJ IV ×2 (01:55→19:53)
[2022-06-22] MEDS: LORazepam 2 MG/ML INJ 1 MG IV ×4 (04:16→18:09)
[2022-06-22 06:24] LABS: Add Manual Diff / Slide Review NO; Basophils Absolute Auto 0 /uL (0-100); Basophils Percent Auto 0.1 % (0-2); Eosinophils Absolute Auto 100 /uL (0-450); Hematocrit 34.3 % (41-53); Hemoglobin 11.4 g/dL (13.5-17.5); Lymphocytes Absolute Auto 1600 /uL (1100-4500); Lymphocytes Percent Auto 11.6 % (25-40); Mean Corpuscular HGB Conc 33.2 % (30-36); Mean Corpuscular Hemoglobin 30.9 PG (26-34); Mean Corpuscular Volume 93.2 fL (80-100); Monocytes Absolute Auto 1700 /uL (0-900); Monocytes Percent Auto 12.9 % (3-14); Neutrophils Absolute Auto 10000 /uL (1500-7000); Neutrophils Percent Auto 74.4 % (50-75); Platelet Count 134 X10^3/uL (150-400); Red Blood Cell Count 3.67 X10^6/uL (4.5-5.9); Red Cell Distribution Width 14.5 % (11.6-14.8); White Blood Cell Count 13.5 X10^3/uL (4.5-11.0)
[2022-06-22 06:36] LABS: Blood Urea Nitrogen 20 mg/dL (9-20); Calcium 7.9 mg/dL (8.4-10.2); Carbon Dioxide 28 mmol/L (22-32); Chloride 105 mmol/L (98-107); Estimated Glomerular Filt Rate > 60 mL/min (>60); Glucose 103 mg/dL (80-110); HEMOLYSIS < 15 (0-50); Potassium 4.1 mmol/L (3.4-5.1); Sodium 137 mmol/L (137-145)
--- NOTE | 2022-06-22 09:05 | PM.PN.1 ---
Subjective Subjective Interval history: Nurses report that the patient was combative this morning. During my visit with the patient he was mostly somnolent and trying to sleep. No new complaints. Patient is 2 days postoperative open reduction internal fixation of right intertrochanteric fracture. Exam Vital Signs (past 8 hours): - 06/22/22 02:39 06/22/22 02:54 06/22/22 05:06 Temperature 97.4 F L Pulse Rate 74 74 92 H Respiratory Rate 16 18 Blood Pressure 108/63 108/63 116/71 Pulse Oximetry 98 Oxygen Flow Rate 2 06/22/22 06:13 Temperature 98.4 F Pulse Rate 104 H Respiratory Rate 20 Blood Pressure 108/61 Pulse Oximetry 92 Oxygen Flow Rate 0.5 Oxygen Delivery Method Room Air Oxygen Flow Rate 0.5 Narrative Exam Narrative: General:? Patient is a well-developed, well-nourished elderly male, currently trying to sleep peacefully and able to be aroused for the examination. HEENT:? Normocephalic, atraumatic, trachea midline. Chest:? Breathing without nasal flaring, retractions, or tachypneic labored Lungs:? Auscultation of all lung christian are clear without adventitious sounds, wheezes, rhonchi, or rales. Cardio:? regular rate and rhythm without murmur, rubs, or gallops, no carotid bruit, no cardiac pulsations present. Abdomen:? Soft nontender, negative for organomegaly, or masses.? Bowel sounds are hypoactive present in all 4 quadrants.? No tenderness. Musculoskeletal:? Normal extremities on observation.? Postop dressing right hip.Tenderness right hip Skin:? Warm dry and intact without rashes or lesions. Neuro:? Unable to assess due to sleeping. Psych:?? Resting calmly in no apparent pain in bed. Objective Labs 06/22/22 05:44 06/22/22 05:44 Labs: Laboratory Results - last 24 hr 06/22/22 06/22/22 05:44 05:44 WBC 13.5 H RBC 3.67 L Hgb 11.4 L Hct 34.3 L MCV 93.2 MCH 30.9 MCHC 33.2 RDW 14.5 Plt Count 134 L Neut % (Auto) 74.4 Lymph % (Auto) 11.6 L [place] % (Auto) 12.9 Eos % (Auto) 1.0 L Baso % (Auto) 0.1 Neut # (Auto) 62137 H Lymph # (Auto) 1600 [place] # (Auto) 1700 H Eos # (Auto) 100 Baso # (Auto) 0 Sodium 137 Potassium 4.1 Chloride 105 Carbon Dioxide 28 BUN 20 Creatinine 0.77 Estimated GFR > 60 BUN/Creatinine Ratio 26.0 H Glucose 103 Calcium 7.9 L PFSH Medical History Asthma Atrial fibrillation BPH (benign prostatic hyperplasia) Cervical spine disease CHF (congestive heart failure) Dementia Disease of spine Facial basal cell cancer Hearing loss Hepatitis Hyperlipidemia Jaundice Lumbar stenosis with neurogenic claudication Osteoarthritis Shoulder pain Vision disorder Surgical History Anesthesia History of cataract removal with insertion of prosthetic lens History of discectomy (~2001) History of fusion of cervical spine (~2001) History of lumbar laminectomy (~2001) Family History Mother Cancer Brother History of kidney cancer Sister History of heart disease Social History household members: none Smoking Status: Never smoker Assessment & Plan Assessment & Plan narrative: 1. Ground level fall, history of frequent falls, resulting in right intratrochanteric femur fracture, acute on chronic, present on admission -history of cervical spine disease,chronic back pain, mild chronic thrombocytopenia (baseline 120-140 platelets) -platelets 124 on presentation, today is 108, H&H 13.3/39.5 on presentation, today is 12.8/38.1 -Dr. Mascorro completed right hip surgery with open reduction internal fixation of right intertrochanteric fracture. Currently 2 days postoperative. -Reynoso placed by ED, I&O q.12 -blood pressure soft and slight tachycardia. Initiated D5 normal saline at 84 mils per hour. -patient on strict fall precautions -pain management/comfort measures -will continue hydrocodone, gabapentin, meloxicam 2. Essential hypertension, hypertensive urgency, with chronic atrial fibrillation without anticoagulation, acute on chronic, present on admission -admitting BP 190/91, repeat 226/116, HR 63-ordered now dose metoprolol p.o. 25 mg due to letha HR -yesterday blood pressure 142/71 and heart rate 87, today blood pressure is soft at the 108/61 and pulse elevated at 104-increase IV fluid -continue digoxin, metoprolol, holding Lasix, continue K+, however Lopressor has been ordered for intravenous option of treatment of blood pressure and tachycardia since patient has been spitting out oral medications yesterday 3. Dementia, moderate, with agitation, acute on chronic, present on admission -continue Seroquel 4. Malnutrition, mild, acute on chronic, present on admission -BMI 23.3 -patient's malnutrition places them at high risk for medical and surgical complications in relation to acute illness/chronic illness.? This increases the difficulty in complexity of medical management and increases the chances poor outcomes such as mortality and morbidity as well as impaired wound healing, and immune suppression. -No dietary consult ordered due to patient's moderate dementia Follow labs and clinically. Today chemistry panel is good. White blood count is decreasing and hemoglobin is stable. Code status:? DNR Surrogate decision maker:? Son Salty SRINIVASAN COVID PCR:? Negative DVT/VTE prophylaxis:? Holding medication, SCD on left only Quality VTE Deep Vein Thrombosis/Pulmonary Embolism Present on Admission: No
--- NOTE | 2022-06-22 10:03 | PM.PNPO.1 ---
Subjective Subjective Interval history: Patient is status post surgical fixation of a proximal femur fracture. Exam Vital Signs (past 8 hours): - 06/22/22 02:39 06/22/22 02:54 06/22/22 05:06 Temperature 97.4 F L Pulse Rate 74 74 92 H Respiratory Rate 16 18 Blood Pressure 108/63 108/63 116/71 Pulse Oximetry 98 Oxygen Flow Rate 2 06/22/22 06:13 06/22/22 08:00 Temperature 98.4 F 97.5 F L Pulse Rate 104 H 54 L Respiratory Rate 20 22 Blood Pressure 108/61 152/70 H Pulse Oximetry 92 97 Oxygen Flow Rate 0.5 0 Oxygen Delivery Method Room Air Oxygen Flow Rate 0 Narrative Exam Narrative: Dressings clean and dry. Positive dorsiflexion and plantar flexion the toes and ankles. Palpable pedal pulses. Objective Labs 06/22/22 05:44 06/22/22 05:44 Labs: Laboratory Results - last 24 hr 06/22/22 06/22/22 05:44 05:44 WBC 13.5 H RBC 3.67 L Hgb 11.4 L Hct 34.3 L MCV 93.2 MCH 30.9 MCHC 33.2 RDW 14.5 Plt Count 134 L Neut % (Auto) 74.4 Lymph % (Auto) 11.6 L [place] % (Auto) 12.9 Eos % (Auto) 1.0 L Baso % (Auto) 0.1 Neut # (Auto) 92164 H Lymph # (Auto) 1600 [place] # (Auto) 1700 H Eos # (Auto) 100 Baso # (Auto) 0 Sodium 137 Potassium 4.1 Chloride 105 Carbon Dioxide 28 BUN 20 Creatinine 0.77 Estimated GFR > 60 BUN/Creatinine Ratio 26.0 H Glucose 103 Calcium 7.9 L PFSH Medical History Asthma Atrial fibrillation BPH (benign prostatic hyperplasia) Cervical spine disease CHF (congestive heart failure) Dementia Disease of spine Facial basal cell cancer Hearing loss Hepatitis Hyperlipidemia Jaundice Lumbar stenosis with neurogenic claudication Osteoarthritis Shoulder pain Vision disorder Surgical History Anesthesia History of cataract removal with insertion of prosthetic lens History of discectomy (~2001) History of fusion of cervical spine (~2001) History of lumbar laminectomy (~2001) Family History Mother Cancer Brother History of kidney cancer Sister History of heart disease Social History household members: none Smoking Status: Never smoker Assessment & Plan Post-op Postoperative Procedures: Procedures Operation Date: 06/20/22 16:00 Actual Procedure Side Surgeon p Intramedullary Nailing Femur Right Shakira Mascorro MD Postoperative day: 3 Postoperative plan: routine post-op care Postoperative plan narrative: Patient can be weight-bearing as tolerated with no posterior hip precautions. Quality VTE Deep Vein Thrombosis/Pulmonary Embolism Present on Admission: No
[2022-06-22] MEDS: DIGOXIN 500 MCG/2 ML AMPUL 250 MCG IV ×2 (10:05→16:14)
[2022-06-22] MEDS: DEXTROSE 5%-0.9% NS 1,000 ML 84 ML IV ×2 (10:06→22:31)
--- NOTE | 2022-06-22 10:39 | CM.DPNOTE ---
Discharge Planning Note: Patient is POD 2 (ORIF 06/20). Patient sleeping, was spitting out po meds, his heart rate was elevated and was given IV meds. Unsure if we have PT available today. Will to work with therapy. Dr Son in to see patient. Left Zahraa at [facility] yesterday to confirm he had surgery and to proceed with auth and that when PT notes available will send along. Plan: Work with PT. Contact Zahraa at [facility] regarding auth. Contact [place] for updates as needed. Isabella Sidhu RN/DCP
--- NOTE | 2022-06-22 12:27 | PC.NURSE ---
Addendum entered by Sandhya Rodriguez R.N. 06/22/22 18:35: Patient awake and pulling at iv and gama catheter. Not taking things by mouth, spitting out meds. Just given iv ativan around 1800 and helpful. Addendum entered by Sandhya Rodriguez R.N. 06/22/22 15:12: Family talking to and asked if patients daughter can call and get information on patient as she is an RN. Explained to family that this is fine. We also talked about maybe having one person call and relay messages to family, as it sometimes get hard to talk to many people at one time. Aminah Clifton is the Daughters name and she can have info on patient. Original Note: Patient can become easily agitated, and was swinging at staff yesterday. He was resting for about three hours this am. Tele on and pulse up to the 150s, given 250mcg of iv digoxin and helpful. Patient then woke up about an hour later pulling hard at his gama catheter and becoming increasingly agitated. Metoprolol 5mg iv given to patient as heart rate up to 160. May have been due to agitation and pain. 1mg of iv ativan also given to patient and he is more calm and comfortable.
[2022-06-22] MEDS: QUETIAPINE 25 MG TABLET 50 MG PO (19:53)
[2022-06-23] VITALS (10 sets, daily range): BP systolic 103–178; BP diastolic 64–124; PULSE 58–134; RESP 16–24; TEMP 36.2–36.8; O2SAT 93–95
[2022-06-23] MEDS: METOPROLOL TARTRATE 5 MG/5 ML INJ IV ×4 (01:01→16:12)
[2022-06-23] MEDS: LORazepam 2 MG/ML INJ 1 MG IV ×2 (01:04→04:33)
[2022-06-23] MEDS: HYDROMORPHONE 0.5 MG INJ IV ×3 (02:30→20:52)
[2022-06-23 06:06] LABS: Add Manual Diff / Slide Review NO; Basophils Absolute Auto 100 /uL (0-100); Basophils Percent Auto 0.6 % (0-2); Eosinophils Absolute Auto 700 /uL (0-450); Eosinophils Percent Auto 5.7 % (2-4); Hematocrit 32.9 % (41-53); Lymphocytes Absolute Auto 1300 /uL (1100-4500); Lymphocytes Percent Auto 10.8 % (25-40); Mean Corpuscular HGB Conc 33.4 % (30-36); Mean Corpuscular Hemoglobin 31.1 PG (26-34); Mean Corpuscular Volume 93.2 fL (80-100); Monocytes Absolute Auto 1500 /uL (0-900); Monocytes Percent Auto 12.8 % (3-14); Neutrophils Absolute Auto 8300 /uL (1500-7000); Neutrophils Percent Auto 70.1 % (50-75); Platelet Count 130 X10^3/uL (150-400); Red Blood Cell Count 3.52 X10^6/uL (4.5-5.9); Red Cell Distribution Width 14.2 % (11.6-14.8); White Blood Cell Count 11.8 X10^3/uL (4.5-11.0)
[2022-06-23 06:11] LABS: BUN Creatinine Ratio 23.2 (6-22); Blood Urea Nitrogen 16 mg/dL (9-20); Calcium 7.7 mg/dL (8.4-10.2); Carbon Dioxide 31 mmol/L (22-32); Chloride 106 mmol/L (98-107); Estimated Glomerular Filt Rate > 60 mL/min (>60); Glucose 122 mg/dL (80-110); HEMOLYSIS < 15 (0-50); Potassium 3.6 mmol/L (3.4-5.1); Sodium 138 mmol/L (137-145)
[2022-06-23] MEDS: DEXTROSE 5%-0.9% NS 1,000 ML 84 ML IV (09:24)
--- NOTE | 2022-06-23 10:54 | P.PN_ITS ---
Subjective Subjective Interval history: Patient quite groggy due to recent Seroquel doses overnight. However he is not agitated at this time and nursing has been able to do shaving and clean up the patient appropriately. No new nursing complaints. Exam Vital Signs (past 8 hours): - 06/23/22 04:00 06/23/22 05:12 06/23/22 06:25 Temperature 97.1 F L Pulse Rate 102 H 119 H Respiratory Rate 16 24 Blood Pressure 141/77 H 103/74 Pulse Oximetry 93 Oxygen Delivery Method Room Air Oxygen Flow Rate 06/23/22 08:00 Temperature 97.3 F L Pulse Rate 58 L Respiratory Rate 17 Blood Pressure 109/64 Pulse Oximetry 93 Oxygen Delivery Method Oxygen Flow Rate 0 Oxygen Delivery Method Room Air Oxygen Flow Rate 0 Narrative Exam Narrative: General:? Patient is a well-developed, well-nourished elderly male, currently trying to sleep peacefully and unable to be aroused for the examination, but does try to mumble when asked questions. HEENT:? Normocephalic, atraumatic, trachea midline. Chest:? Breathing without nasal flaring, retractions, or tachypneic labored Lungs:? Auscultation of all lung christian are clear without adventitious sounds, wheezes, rhonchi, or rales. Cardio:? regular rate and rhythm without murmur, rubs, or gallops, no carotid bruit, no cardiac pulsations present. Abdomen:? Soft nontender, negative for organomegaly, or masses.? Bowel sounds present. No tenderness. Musculoskeletal:? Normal extremities on observation.? Postop dressing right hip.Tenderness right hip Skin:? Warm dry and intact without rashes or lesions. Neuro:? Unable to assess due to sleeping. Psych:??Unable to assess due to sleeping. Objective Labs 06/23/22 05:32 06/23/22 05:32 Labs: Laboratory Results - last 24 hr 06/23/22 06/23/22 05:32 05:32 WBC 11.8 H RBC 3.52 L Hgb 11.0 L Hct 32.9 L MCV 93.2 MCH 31.1 MCHC 33.4 RDW 14.2 Plt Count 130 L Neut % (Auto) 70.1 Lymph % (Auto) 10.8 L [place] % (Auto) 12.8 Eos % (Auto) 5.7 H Baso % (Auto) 0.6 Neut # (Auto) 8300 H Lymph # (Auto) 1300 [place] # (Auto) 1500 H Eos # (Auto) 700 H Baso # (Auto) 100 Sodium 138 Potassium 3.6 Chloride 106 Carbon Dioxide 31 BUN 16 Creatinine 0.69 Estimated GFR > 60 BUN/Creatinine Ratio 23.2 H Glucose 122 H Calcium 7.7 L PFSH Medical History Asthma Atrial fibrillation BPH (benign prostatic hyperplasia) Cervical spine disease CHF (congestive heart failure) Dementia Disease of spine Facial basal cell cancer Hearing loss Hepatitis Hyperlipidemia Jaundice Lumbar stenosis with neurogenic claudication Osteoarthritis Shoulder pain Vision disorder Surgical History Anesthesia History of cataract removal with insertion of prosthetic lens History of discectomy (~2001) History of fusion of cervical spine (~2001) History of lumbar laminectomy (~2001) Family History Mother Cancer Brother History of kidney cancer Sister History of heart disease Social History household members: none Smoking Status: Never smoker Assessment & Plan Assessment & Plan narrative: 1. Ground level fall, history of frequent falls, resulting in right intratrochanteric femur fracture, acute on chronic, present on admission -history of cervical spine disease,chronic back pain, mild chronic thrombocytopenia (baseline 120-140 platelets) -platelets 124 on presentation, H&H 13.3/39.5 on presentation, today is hemoglobin 11.0 hematocrit 32.9 and platelets have improved to 130. -Dr. Mascorro completed right hip surgery with open reduction internal fixation of right intertrochanteric fracture.? Currently 3 days postoperative. -Reynoso placed by ED, I&O q.12 -blood pressure soft and heart rate stable.? Initiated D5 normal saline at 84 mils per hour. -patient on strict fall precautions -pain management/comfort measures -will continue hydrocodone, gabapentin, meloxicam 2. Essential hypertension, hypertensive urgency, with chronic atrial fibrillation without anticoagulation, acute on chronic, present on admission -admitting BP 190/91, repeat 226/116, HR 63-ordered now dose metoprolol p.o. 25 mg due to letha HR -yesterday blood pressure 142/71 and heart rate 87, today blood pressure is soft at the 109/64 and pulse stable at 58 -continue digoxin, metoprolol, holding Lasix, continue K+, however Lopressor has been ordered for intravenous option of treatment of blood pressure and tachycardia since patient has been spitting out oral medications 3. Dementia, moderate, with agitation, acute on chronic, present on admission -continue Seroquel 4. Malnutrition, mild, acute on chronic, present on admission -BMI 23.3 -patient's malnutrition places them at high risk for medical and surgical complications in relation to acute illness/chronic illness.? This increases the difficulty in complexity of medical management and increases the chances poor outcomes such as mortality and morbidity as well as impaired wound healing, and immune suppression. -No dietary consult ordered due to patient's moderate dementia 5. Mobility. PT/OT will commence once patient is alert enough to cooperate. Follow labs and clinically.? Today chemistry panel is good.? White blood count is decreasing and hemoglobin is stable. Code status:? DNR Surrogate decision maker:? Son Salty SRINIVASAN COVGLADYS PCR:? Negative DVT/VTE prophylaxis:? Holding medication, SCD on left only Quality VTE Deep Vein Thrombosis/Pulmonary Embolism Present on Admission: No
--- NOTE | 2022-06-23 11:22 | PT-IP ANOTE ---
Pt has had PT orders since Thursday PM after surgery. He was not appropriate for therapy evaluation on Thursday. PT was not staffed on Thursday. In follow up today, PT and OT met with pt who responded with guttural vocalizations only to sternal rubs and other attempts to rouse him. Made the decision to facilitate transfer to sitting EOB which was a dependent transfer requiring 2 person assist. Tele showed a fib with rate 66 at rest, increasing to 161 while upright. RN was notified. PT and OT returned pt to supine and repositioned him. Will follow up again tomorrow if pt is more appropriate for skilled therapy and depending on goals of care.
--- NOTE | 2022-06-23 11:54 | PC.NURSE ---
0800: patient is drowsy, snoring. 2pa position change and supported w/ pillows. appears to be comfortable. hold AM PO meds until more awake. 1130: PT attempted to get OOB to chair, but patient unable to do more than sit on EOB. continues to be very drowsy. tele: HR 140's, metoprolol 5mg PIV given. frequent safety and room checks. frequent oral care to keep mucosa moist. bed alarm on , call light w/in reach.
--- NOTE | 2022-06-23 13:42 | PC.NURSE ---
1145: HR sustained 140's. PRN IV metoprolol given x 1 w/ fair effect. patient has been drowsy most of the morning, starting to rouse and become restless. after reposition he quiets down and is calm. frequent oral care provided, shower cap for his hair and head that smell of perspiration. patient did not open his eyes during these cares. Frequent turning, bed alarm is on, call light w/in reach. 1345: call from ICU: patient sustained 140s HR - gave another dose of metoprolol (give >110 HR) call to MD to update. 1530: family here to see patient. had a laura conversation w/ son and daughter in law about comfort care vs attempt PT. Dr Nj in to discuss w/ family. Plan: continue to allow patient to wake up from drowsy state. dc lorazepam, give loxepine (im route) spoke w/ pharmacy, this med is not available. will notify MD.
--- NOTE | 2022-06-23 14:30 | CM.DPC ---
DCP SNF planning Per MD, pt seems to have stabilized some but had discussion with family regarding pt's declining of meds and food etc. and possibly appropriate for Hospice at this time but family was not yet agreeable with Hospice and want to see if pt could participate with PT/OT. Per RN, pt was able to take his Seroquel last night and now quite drowsy this morning. PT/OT attempted to sit pt upright and he was too drowsy and bp issues when sitting upright and unable to full eval. Will attempt again later. SW updated [facility] and provided updated RN and PT notes showing pt having difficulty being alert to participate. [facility] willing to see if they can submit for auth with the updated notes. Plan: SW to follow for pt to be more medically appropriate for further PT/OT to confirm SNF and not Hospice at d/c. TATE Daigle
[2022-06-23] MEDS: DIGOXIN 500 MCG/2 ML AMPUL IV (16:12)
[2022-06-23] MEDS: hydrOXYzine 50 MG/ML INJ 25 MG IM (16:58)
--- NOTE | 2022-06-23 19:53 | PC.NURSE ---
IV vistaril effective for keeping agitation at bay, while allowing patient to wake up a little bit. patient did not open his eyes, but moving his UE's more. prn dilauded given x 1 this shift for btp, and he appears comfortable. oral mucosa is very dry, thick secretions difficult to remove w/ toothette. patient unable to swallow his own secretions, and was attempting to clear his throat alot. HOB up for comfort. HR is now upper 90s, afib on tele. covered w/ a sheet, skin is warm and dry. turned frequently thru the shift and pillows in between knees to keep hip in good alignment. dressing to R hip has scant shadow drainage. no SOI. per MD and family: awaiting improvement in mentation, and hospice vs SNF is next planned decision. report to NOC.
[2022-06-24] MEDS: hydrOXYzine 50 MG/ML INJ 25 MG IM ×2 (00:45→05:44)
[2022-06-24 02:00] VITALS: BP 169/86; PULSE 131; RESP 18; TEMP 36.8; O2SAT 94
[2022-06-24] MEDS: METOPROLOL TARTRATE 5 MG/5 ML INJ IV ×2 (02:56→10:39)
[2022-06-24] MEDS: HYDROMORPHONE 0.5 MG INJ IV ×3 (03:08→12:23)
[2022-06-24 03:16] VITALS: BP 70/38; PULSE 68; RESP 16; O2SAT 95
[2022-06-24 03:19] VITALS: BP 92/38; PULSE 67; RESP 16; O2SAT 96
[2022-06-24 04:49] VITALS: BP 163/99; PULSE 82; RESP 18; TEMP 36.7; O2SAT 96
[2022-06-24 06:15] LABS: Add Manual Diff / Slide Review NO; Basophils Absolute Auto 100 /uL (0-100); Basophils Percent Auto 0.6 % (0-2); Eosinophils Absolute Auto 600 /uL (0-450); Eosinophils Percent Auto 4.4 % (2-4); Hematocrit 34.8 % (41-53); Hemoglobin 11.7 g/dL (13.5-17.5); Lymphocytes Absolute Auto 1500 /uL (1100-4500); Lymphocytes Percent Auto 11.4 % (25-40); Mean Corpuscular HGB Conc 33.6 % (30-36); Mean Corpuscular Hemoglobin 31.1 PG (26-34); Mean Corpuscular Volume 92.8 fL (80-100); Monocytes Absolute Auto 1500 /uL (0-900); Monocytes Percent Auto 11.7 % (3-14); Neutrophils Absolute Auto 9200 /uL (1500-7000); Neutrophils Percent Auto 71.9 % (50-75); Platelet Count 163 X10^3/uL (150-400); Red Blood Cell Count 3.75 X10^6/uL (4.5-5.9); Red Cell Distribution Width 14.7 % (11.6-14.8); White Blood Cell Count 12.8 X10^3/uL (4.5-11.0)
[2022-06-24 06:25] LABS: BUN Creatinine Ratio 17.2 (6-22); Blood Urea Nitrogen 10 mg/dL (9-20); Calcium 7.8 mg/dL (8.4-10.2); Carbon Dioxide 28 mmol/L (22-32); Chloride 106 mmol/L (98-107); Estimated Glomerular Filt Rate > 60 mL/min (>60); Glucose 126 mg/dL (80-110); HEMOLYSIS < 15 (0-50); Potassium 3.4 mmol/L (3.4-5.1); Sodium 137 mmol/L (137-145)
[2022-06-24 06:27] LABS: Digoxin 1.2 ng/mL (0.8-2.0)
[2022-06-24 08:00] VITALS: BP 130/65; PULSE 84; RESP 17; TEMP 36.7; O2SAT 95
--- NOTE | 2022-06-24 08:08 | PM.PN.1 ---
Subjective Subjective Interval history: Patient continues to moan and is very encephalopathic. Son and [id number] at bedside and a 25 minute discussion was had about patient's continued lack of ability to interact and refusal to eat. They elected for comfort measures on hospice. Home oral meds stopped and IV ativan and morphine ordered for comfort. Exam Vital Signs (past 8 hours): - 06/24/22 02:00 06/24/22 03:16 06/24/22 03:19 Temperature 98.3 F Pulse Rate 131 H 68 67 Respiratory Rate 18 16 16 Blood Pressure 169/86 H 70/38 L 92/38 L Pulse Oximetry 94 95 96 Oxygen Flow Rate 0 0 06/24/22 04:49 Temperature 98.0 F Pulse Rate 82 Respiratory Rate 18 Blood Pressure 163/99 H Pulse Oximetry 96 Oxygen Flow Rate 0 Oxygen Delivery Method Nasal Cannula Oxygen Flow Rate 0 Narrative Exam Narrative: General:? Patient is a well-developed, well-nourished elderly male, moaning frequently and appears uncomfortable, diaphoretic HEENT:? Normocephalic, atraumatic, trachea midline. Chest:? Breathing without nasal flaring, retractions, or tachypneic labored Lungs:? Auscultation of all lung christian are clear without adventitious sounds, wheezes, rhonchi, or rales. Cardio:? regular rate and rhythm without murmur, rubs, or gallops, no carotid bruit, no cardiac pulsations present. Abdomen:? Soft nontender, negative for organomegaly, or masses.? Bowel sounds present. No tenderness. Musculoskeletal:? Normal extremities on observation.? Postop dressing right hip.Tenderness right hip Skin:? Warm dry and intact without rashes or lesions. Neuro:? Unable to assess due to mental status. Objective Labs 06/24/22 05:53 06/24/22 05:53 Labs: Laboratory Results - last 24 hr 06/24/22 06/24/22 06/24/22 05:53 05:53 05:53 WBC 12.8 H RBC 3.75 L Hgb 11.7 L Hct 34.8 L MCV 92.8 MCH 31.1 MCHC 33.6 RDW 14.7 Plt Count 163 Neut % (Auto) 71.9 Lymph % (Auto) 11.[address] [place] % (Auto) 11.7 Eos % (Auto) 4.4 H Baso % (Auto) 0.6 Neut # (Auto) 9200 H Lymph # (Auto) 1500 [place] # (Auto) 1500 H Eos # (Auto) 600 H Baso # (Auto) 100 Sodium 137 Potassium 3.4 Chloride 106 Carbon Dioxide 28 BUN 10 Creatinine 0.58 L Estimated GFR > 60 BUN/Creatinine Ratio 17.2 Glucose 126 H Calcium 7.8 L Digoxin 1.2 PFSH Medical History Asthma Atrial fibrillation BPH (benign prostatic hyperplasia) Cervical spine disease CHF (congestive heart failure) Dementia Disease of spine Facial basal cell cancer Hearing loss Hepatitis Hyperlipidemia Jaundice Lumbar stenosis with neurogenic claudication Osteoarthritis Shoulder pain Vision disorder Surgical History Anesthesia History of cataract removal with insertion of prosthetic lens History of discectomy (~2001) History of fusion of cervical spine (~2001) History of lumbar laminectomy (~2001) Family History Mother Cancer Brother History of kidney cancer Sister History of heart disease Social History household members: none Smoking Status: Never smoker Assessment & Plan Assessment & Plan narrative: # Acute hospital acquired delirium, severe -patient disoriented, confused, not eating and pulling at lines -failed to improve with IV vistaril or seroquel -GOC discussion with family decided on comfort measures and hospice -morphine and ativan IV PRN -comfort care only # Ground level fall, history of frequent falls, resulting in right intratrochanteric femur fracture, acute on chronic, present on admission -history of cervical spine disease,chronic back pain, mild chronic thrombocytopenia (baseline 120-140 platelets) -platelets 124 on presentation, H&H 13.3/39.5 on presentation, today is hemoglobin 11.0 hematocrit 32.9 and platelets have improved to 130. -Dr. Mascorro completed right hip surgery with open reduction internal fixation of right intertrochanteric fracture on 06/20/22 # Essential hypertension, hypertensive urgency, with chronic atrial fibrillation without anticoagulation, acute on chronic, present on admission -admitting BP 190/91, repeat 226/116, HR 63 -stopped BP meds as now comfort care # Dementia, moderate, with agitation, acute on chronic, present on admission -holding home Seroquel # Malnutrition, mild, acute on chronic, present on admission -BMI 23.3 -patient's malnutrition places them at high risk for medical and surgical complications in relation to acute illness/chronic illness.? This increases the difficulty in complexity of medical management and increases the chances poor outcomes such as mortality and morbidity as well as impaired wound healing, and immune suppression. -No dietary consult ordered due to patient's moderate dementia Code status:? DNR Surrogate decision maker:? Aki SRINIVASAN COVID PCR:? Negative Dispo: Back to memory care on hospice on 06/25. Quality VTE Deep Vein Thrombosis/Pulmonary Embolism Present on Admission: No
[2022-06-24] MEDS: DEXTROSE 5%-0.9% NS 1,000 ML 84 ML IV (08:30)
--- NOTE | 2022-06-24 11:26 | CM.DPC ---
Addendum entered by TATE Daigle 06/24/22 14:08: ADD: Per MD, Goals of Care completed bedside with family and decision to switch to Comfort Measures and ordered Ativan and Morphine as pt does not appear comfortable and has labored breathing but remains non-responsive. SW met bedside with son/DPOA and his Re and they confirm they are agreeable with return to [facility] with Hospice and agreeable with BLS transport as pt has additional coverage for Air and BLS transport that covers cost that insurance does not cover. SW confirmed with [facility] Vanessa that they can open tomorrow Wed at 1100 at [facility] and will call both Jadyn at [facility] as well as son/DPOA and his to answer any questions. SW called Jadyn at [facility] and updated on plan of d/c tomorrow Wed around 0930 BLS to arrive at their facility for [facility] to open at 1100 and she is agreeable. SW called [facility] and scheduled BLS for 0930 tomorrow morning and BLS form completed and signed by MD and attached POLST and placed on pt chart for the AM transport. Plan: SW to follow for plan of d/c tomorrow Wed 06/25 back to [facility] Care via [facility] at [address] [facility] to open at 1100. SW to fax [facility] d/c summary as well as [facility] Care. BF Original Note: DCP SNF vs Hospice Per MD, pt remains minimally responsive and to talk with family today to make determination of possible Comfort/Hospice. PT/OT will attempt one more time this morning to see if pt can participate to r/o SNF option. EDUARDO called pt's son/DPOA Salty and left vm requesting call back. EDUARDO called Dtr inlaw (son's spouse) Re who is a retired RN to determine if they can arrive bedside for planning discussion. Re quite emotional and frustrated and overwhelmed and confirms she mostly manages pt's medical decisions and care since they moved pt up from [place] about a year and a half ago. EDUARDO discussed PT/OT will attempt again today but barriers for SNF auth from insurance if pt cannot participate. SW discussed option then of return to [facility] with Hospice support. Dtr in law confirms she and her (pt's DPOA) will be bedside at lunch time to see pt and have discussion with MD. EDUARDO updated MD who kindly agrees to meet with family when bedside. EDUARDO called [facility] [phone] and spoke to Jadyn and provided update and she confirms they could accept pt back if Hospice on board and DME needed would be hospital bed and bed side table and would want Hospice ready to start when pt returns but would consider pt returning before hospital bed delivered if needed. EDUARDO called Vanessa at [facility] with update and she is agreeable to order DME today for request of delivery tomorrow 06/25 but might not arrive until 06/26 but they have an opening to start care tomorrow 06/25 around [phone] or could open 06/26 in the AM. SW discussed with family possible options of transport and they are aware of likely BLS out of pocket expense and would be agreeable to transport if pt alert enough. Plan: SW to follow closely for GOals of Care discussion bedside between family and MD to formalize likely plan of return to [facility] tomorrow 06/25 with [facility] to open at d/c. TATE Daigle
[2022-06-24 12:00] VITALS: BP 172/102; PULSE 66; RESP 19; TEMP 36.9; O2SAT 94
[2022-06-24] MEDS: HALOPERIDOL 5 MG/ML VIAL IV (12:29)
[2022-06-24] MEDS: MORPHINE 2 MG/ML INJ IV ×5 (13:43→18:11)
[2022-06-24] MEDS: LORazepam 2 MG/ML INJ 1 MG IV ×3 (13:48→16:27)
--- NOTE | 2022-06-24 14:43 | OT.IPNOTE ---
Pt now comfort measures. Hospitalist has discharged OT eval.
--- NOTE | 2022-06-24 18:07 | PM.PNPO.1 ---
Subjective Subjective Date Patient Seen: 06/24/22 Time Patient Seen: 07:15 Interval history: Patient sleeping this morning. He is unarousable to voice and gentle shake of the shoulder. Family not at bedside. Exam Vital Signs (past 8 hours): - 06/24/22 12:00 Temperature 98.4 F Pulse Rate 66 Respiratory Rate 19 Blood Pressure 172/102 H Pulse Oximetry 94 Oxygen Flow Rate 0 Oxygen Delivery Method Nasal Cannula Oxygen Flow Rate 0 Narrative Exam Narrative: Somnolent, unarousable. Unable to follow commands for strength/sensation. Right hip intraoperative bandage inact with small serosanguinous drainage distally. Bilateral calves soft, compressible, nontender with no palpable cords or masses. Objective Labs 06/24/22 05:53 06/24/22 05:53 Labs: Laboratory Results - last 24 hr 06/24/22 06/24/22 06/24/22 05:53 05:53 05:53 WBC 12.8 H RBC 3.75 L Hgb 11.7 L Hct 34.8 L MCV 92.8 MCH 31.1 MCHC 33.6 RDW 14.7 Plt Count 163 Neut % (Auto) 71.9 Lymph % (Auto) 11.4 L [place] % (Auto) 11.7 Eos % (Auto) 4.4 H Baso % (Auto) 0.6 Neut # (Auto) 9200 H Lymph # (Auto) 1500 [place] # (Auto) 1500 H Eos # (Auto) 600 H Baso # (Auto) 100 Sodium 137 Potassium 3.4 Chloride 106 Carbon Dioxide 28 BUN 10 Creatinine 0.58 L Estimated GFR > 60 BUN/Creatinine Ratio 17.2 Glucose 126 H Calcium 7.8 L Digoxin 1.2 PFSH Medical History Asthma Atrial fibrillation BPH (benign prostatic hyperplasia) Cervical spine disease CHF (congestive heart failure) Dementia Disease of spine Facial basal cell cancer Hearing loss Hepatitis Hyperlipidemia Jaundice Lumbar stenosis with neurogenic claudication Osteoarthritis Shoulder pain Vision disorder Surgical History Anesthesia History of cataract removal with insertion of prosthetic lens History of discectomy (~2001) History of fusion of cervical spine (~2001) History of lumbar laminectomy (~2001) Family History Mother Cancer Brother History of kidney cancer Sister History of heart disease Social History household members: none Smoking Status: Never smoker Assessment & Plan Post-op Postoperative Procedures: Procedures Operation Date: 06/20/22 16:00 Actual Procedure Side Surgeon p Intramedullary Nailing Femur Right Shakira Mascorro MD Postoperative day: 4 Postoperative status narrative: Postoperative course complicated by a multitude of comorbidities. Postoperative plan narrative: Patient's family has decided to change patient to comfort care. Mechanically patient may be WBAT, though he has not been able to ambulate since surgery for multiple reasons including altered mental status due to dementia/delirium. Continued comfort measures per primary team. Ortho will sign off at this point. Quality VTE Deep Vein Thrombosis/Pulmonary Embolism Present on Admission: No
[2022-06-25] MEDS: MORPHINE 2 MG/ML INJ IV ×4 (04:04→09:46)
[2022-06-25] MEDS: LORazepam 2 MG/ML INJ 1 MG IV ×4 (04:04→09:51)
--- NOTE | 2022-06-25 08:11 | PM.DS.1 ---
History of Present Illness History of Present Illness Date Patient Seen: 06/18/22 Time Patient Seen: 23:26 Chief complaint: Fall/Found down/Hip Fx Narrative: Bassam snell is an 87-year-old male with a past medical history of chronic atrial fibrillation without anticoagulation, CHF, dementia moderate with associated agitation, frequent falls, BPH, and cervical spine disease. Who presented to the ED via EMS after a fall at [facility].? Unclear specifics of fall.?Right leg shortened and rotated.? Patient is not complaining of other pain.? Family at bedside in ED stated that he is comfort measures DNR.? However he typically ambulates with a walker he can get himself dressed and does some daily living activities. Unable to obtain HPI, ROS due to patient's dementia. On admit patient is stable but slightly hypertensive temp 97.6?, BP 190/91, HR 59, RR 18, O2 saturation 93% on room air. Patient's H&H 13.3/39.5, platelets 124. Renal and hepatic labs are unremarkable, COVID negative. Chest x-ray unchanged from 12 no acute cardiopulmonary process, head CT negative, C-spine pending, right hip x-ray demonstrates right interotrochanteric femur fracture for admit, Dr. Mascorro surgery to consult. Discharge Providers Provider Date of admission: 06/18/22 23:03 Discharge Date: 06/25/22 Primary care physician: Nathaniel Sarmiento DO Consults: 06/18/22 23:20 Consult to Physician Routine Comment: Consulting Provider: Shakira Mascorro Reason for consultation: Right interotrochanteric femur fracture Has provider been notified: Yes 06/20/22 22:11 Consult to Discharge Planning Routine Comment: snf 06/24/22 13:32 Consult to Hospice Referral Urgent Comment: Discharge provider: Lenin Jimenez DO Summary Hospital Course Discharge Diagnosis: # Acute hospital acquired delirium, severe -patient disoriented, confused, not eating and pulling at lines -failed to improve with IV vistaril or seroquel -GOC discussion with family decided on comfort measures and hospice -morphine and ativan IV PRN -comfort care only # Ground level fall, history of frequent falls, resulting in right intratrochanteric femur fracture, acute on chronic, present on admission -history of cervical spine disease,chronic back pain, mild chronic thrombocytopenia (baseline 120-140 platelets) -platelets 124 on presentation, H&H 13.3/39.5 on presentation, today is hemoglobin 11.0 hematocrit 32.9 and platelets have improved to 130. -Dr. Mascorro completed right hip surgery with open reduction internal fixation of right intertrochanteric fracture on 06/20/22 # Essential hypertension, hypertensive urgency, with chronic atrial fibrillation without anticoagulation, acute on chronic, present on admission -admitting BP 190/91, repeat 226/116, HR 63 -stopped BP meds as now comfort care # Dementia, moderate, with agitation, acute on chronic, present on admission -holding home Seroquel # Malnutrition, mild, acute on chronic, present on admission -BMI 23.3 -patient's malnutrition places them at high risk for medical and surgical complications in relation to acute illness/chronic illness.? This increases the difficulty in complexity of medical management and increases the chances poor outcomes such as mortality and morbidity as well as impaired wound healing, and immune suppression. -No dietary consult ordered due to patient's moderate dementia Hospital Course: Admitted for right femur fracture and underwent surgical repair with ortho. Following surgery patient developed worsening delirium and encephalopathy. CT head neg. Did not improve with delirium preventative measures or seroquel. Patient not eating so family decided to transition to comfort care and patient discharged back to his memory care unit on hospice. Time Spent with Patient Time spent: Greater than 30 minutes Exam Vital Signs (past 8 hours): Oxygen Delivery Method Nasal Cannula Oxygen Flow Rate 0 Narrative Exam Narrative: General:? elderly male, moaning frequently and appears uncomfortable, diaphoretic, not oriented HEENT:? Normocephalic, atraumatic, trachea midline. Chest:? Breathing without nasal flaring, retractions, or tachypneic labored Lungs:? Auscultation of all lung christian are clear without adventitious sounds, wheezes, rhonchi, or rales. Cardio:? regular rate and rhythm without murmur, rubs, or gallops, no carotid bruit, no cardiac pulsations present. Abdomen:? Soft nontender, negative for organomegaly, or masses.? Bowel sounds present. No tenderness. Musculoskeletal:? Normal extremities on observation.? Postop dressing right hip.Tenderness right hip Skin:? Warm dry and intact without rashes or lesions. Neuro:? Unable to assess due to mental status. Psych: Disoriented and agitated. Objective Labs 06/24/22 05:53 06/24/22 05:53 PFSH Medical History Asthma Atrial fibrillation BPH (benign prostatic hyperplasia) Cervical spine disease CHF (congestive heart failure) Dementia Disease of spine Facial basal cell cancer Hearing loss Hepatitis Hyperlipidemia Jaundice Lumbar stenosis with neurogenic claudication Osteoarthritis Shoulder pain Vision disorder Surgical History Anesthesia History of cataract removal with insertion of prosthetic lens History of discectomy (~2001) History of fusion of cervical spine (~2001) History of lumbar laminectomy (~2001) Family History Mother Cancer Brother History of kidney cancer Sister History of heart disease Social History household members: none Smoking Status: Never smoker Discharge Plan Discharge Plan Patient Disposition: Hospice - Home Discharge orders & Medications Prescriptions: New morphine 20 mg/5 mL (4 mg/mL) solution 10 mg PO Q4-6H PRN (Reason: pain or discomfort) Qty: 100 0RF lorazepam [Lorazepam Intensol] 2 mg/mL concentrate 1 mg PO Q4H PRN (Reason: agitation) Qty: 30 0RF Discontinued hydrocodone-acetaminophen 5-325 mg tablet 1 tab PO Q6H PRN (Reason: pain) Qty: 90 0RF Rx Instructions: Decreasing dosing amount due to progressive dementia metoprolol succinate 100 mg tablet extended release 24 hr 100 mg PO DAILY Qty: 90 0RF tamsulosin 0.4 mg capsule 0.4 mg PO DAILY Qty: 90 0RF digoxin 125 mcg (0.125 mg) tablet 125 mcg PO DAILY Qty: 90 3RF potassium chloride 8 mEq capsule, extended release 8 meq PO DAILY Qty: 90 1RF furosemide 40 mg tablet 20 mg PO DAILY Rx Instructions: patient has only been taking 1/2 tablet meloxicam 7.5 mg tablet 7.5 mg PO DAILY Qty: 30 5RF gabapentin 300 mg capsule 300 mg PO QPM quetiapine 25 mg tablet 25 mg PO BID quetiapine 50 mg tablet 50 mg PO BEDTIME lorazepam 0.5 mg tablet 0.25 mg PO TID PRN (Reason: anxiety) Follow up/Referrals: Shakira Mascorro MD [Physician] - 2 Weeks (Follow-up [facility] with BARNEY or Dr Mascorro in 2 weeks for wound check, staple removal and repeat x-rays AP pelvis and right lateral hip. ) Nathaniel Sarmiento, [Primary Care Provider] - Diet/Activity/Treatments Activity: Weightbearing as tolerated to right leg. No activity restrictions. Skin/Wound/Dressing Care Dressing: Keep dressing clean and dry. May remove and replace with clean, dry gauze if it becomes wet or dirty. Visit Report/Discharge Packet Stand Alone Forms: Patient Portal/API, Stroke Signs & Symptoms Discharge Data Primary Care Provider: Nathaniel Sarmiento Discharges patient from system. Discharge Date/Time: 06/25/22 10:10 Quality VTE Deep Vein Thrombosis/Pulmonary Embolism Present on Admission: No
--- NOTE | 2022-06-25 09:23 | CM.DPNOTE ---
DC Note Discharge order in and plan remains discharge back to [facility]; spoke w/ Awa at [facility] who confirms she is expecting patient at approx 1030 arrival via BLS Spoke w/son Salty who is agreeable to plan. Salty then launched into a tirade about patient's primary care provider not being updated w/ patient's medical stay in this hospital. Supported son through this speech and apologized for any inconvenience however educated that it is the family's responsibility to update outpatient providers re a person's medical POC and whereabouts RN Alyssa aware that patient will be transported via BLS at 0930 Faxed completed and signed med list to [facility] per their request F [phone] Plan: Discharge to [facility] via BLS, [facility] to follow, patient discharged w/ativan and Morphine (sublingual) to bridge until hospice arrives for med management JW
[2022-06-25 09:54] VITALS: BP 157/129; PULSE 68; RESP 20; TEMP 36.5; O2SAT 96
--- NOTE | 2022-06-25 10:52 | PC.NURSE ---
Patient is somnolent, sleeping, mouth breather. SBP elevated, patient at shift change appeared comfortable turned to L side and snoring loudly. Approximately 0900 daughter in-law and son at bedside preparing for discharge with EMS. Patient begins moaning slightly although not responding to questions, not opening eyes. He is medicated for pain with PRN morhpine 2 mg and ativan for anxiety. Family appreciative for medications. They are in agreement with discharge plan to [facility] and scheduled transport chart picker at 0930. Per family request MD provided prescription for pain/anxiety medications lorazepam and morphine po. Family verbalizes understanding of medication scheduled. PIV's removed. Reynoso catheter remains in place. He is transported via slide board to [facility] and escorted by EMS for transport at approixmately 1007 this a.m.
== END 2022-06-25 10:10 | disposition hospice, home (50) | DRG 481 ==
LOC: ED 22:59 → AC 23:03
PROVIDERS: Neuromusculoskeletal Medicine, Sports Medicine; Orthopaedic Surgery Foot and Ankle Surgery; Admitting Provider Nurse Practitioner Family; Emergency Provider Emergency Medicine; PCP Family Medicine; Referring Provider Emergency Medicine; Visit Provider Nurse Practitioner Family
PROC: 0QS606Z Reposition Right Upper Femur with Intramedullary Internal Fixation Device, Open Approach (ICD-10-PCS; CPT 27245; principal; 2022-06-20 16:00)
DX: S72.141A Displaced intertrochanteric fracture of right femur, initial encounter for closed fracture (principal); E44.1 Mild protein-calorie malnutrition; F03.B11 Unspecified dementia, moderate, with agitation; I48.20 Chronic atrial fibrillation, unspecified; F05 Delirium due to known physiological condition; I10 Essential (primary) hypertension; I16.0 Hypertensive urgency; W18.30XA Fall on same level, unspecified, initial encounter; Z66 Do not resuscitate; Z51.5 Encounter for palliative care; Z91.81 History of falling; Z79.01 Long term (current) use of anticoagulants; Z68.23 Body mass index [BMI] 23.0-23.9, adult
CPT/HCPCS: 36415; 70450; 71045; 72125; 73502; 73503; 76000; 80048; 80053; 80162; 81001; 82962; 83735; 85025; 85610; 85730; 87635; 94760; 96374; 96376; 99284; C9803; J0171; J0690; J1100; J1160; J1170; J1630; J2060; J2270; J2405; J2704; J3010; J3410